=== PATIENT | female | born 1960 | race Hispanic/Latino ===

== ENCOUNTER 2018-01-17 14:20 | Emergency (ER) | payer OTHER ==
[~2018-01-17 14:20] MED LIST: DAPA10TA PO; ESOM40CA PO; LISI-617 PO; METF10004 PO
[2018-01-17] MEDS ORDERED: SODIUM CHLORIDE 0.9% 1000ML 1,000 ML IV ONE (14:51)
[2018-01-17] MEDS ORDERED: ONDANSETRON HCL 4 MG/2 ML VIAL ONE (14:51)
[2018-01-17 14:53] LABS: BASOPHILS % (AUTO) 0.3 % (0.0-5.0); EOSINOPHILS % (AUTO) 0.7 % (0.0-8.0); HEMATOCRIT 35.8 % (36-48); LYMPHOCYTES % (AUTO) 7.3 % (21.0-51.0); MEAN CORPUSCULAR HEMOGLOBIN 28.3 pg (27.0-33.0); MEAN CORPUSCULAR HGB CONC 34.5 g/dL (32.0-36.0); MEAN CORPUSCULAR VOLUME 82.1 fL (79-99); MONOCYTES % (AUTO) 3.3 % (3.0-13.0); NEUTROPHILS % (AUTO) 88.4 % (40.0-77.0); PLATELET COUNT (AUTO) 143 K/uL (130-400); RED BLOOD CELL COUNT(AUTO) 4.37 MIL/uL (4.00-5.50); RED CELL DISTRIBUTION WIDTH 14.2 % (11.0-15.5)
[2018-01-17 15:02] LABS: CREATININE 0.8 mg/dL (0.5-1.5); POTASSIUM 3.9 mmol/L (3.5-5.1)
[2018-01-17 15:06] LABS: ALBUMIN 3.5 g/dL (3.5-5.0); BILIRUBIN,DIRECT 0.4 mg/dL (0.0-0.3); BILIRUBIN,TOTAL 1.4 mg/dL (0.2-1.0); TOTAL PROTEIN, SERUM 7.9 g/dL (6.0-8.3)
[2018-01-17] MEDS ORDERED: ACETAMINOPHEN 325 MG TAB ONE (15:42)
[2018-01-17 17:45] LABS: APPEARANCE,URINE Cloudy (CLEAR); BILIRUBIN,URINE Negative (NEGATIVE); COLOR,URINE Dark Yellow (YELLOW); GLUCOSE, URINE (UA) Negative (NEGATIVE); KETONES,URINE Negative (NEGATIVE); LEUKOCYTE ESTERASE ,URINE Small (NEGATIVE); NITRATE,URINE Positive (NEGATIVE); OCCULT BLOOD,URINE Negative (NEGATIVE); PH,URINE 6.5 (5.0-8.0); PROTEIN,URINE POS 1+ (NEGATIVE)
[2018-01-17 17:51] LABS: AMPHET/METH SCREEN,URINE NEGATIVE (NEGATIVE); BARBITURATE SCREEN, URINE NEGATIVE (NEGATIVE); BENZODIAZEPINES SCREEN,URINE NEGATIVE (NEGATIVE); CANNABINOID SCREEN,URINE NEGATIVE (NEGATIVE); COCAINE SCREEN,URINE NEGATIVE (NEGATIVE); OPIATE SCREEN,URINE NEGATIVE (NEGATIVE); PHENCYCLIDINE SCREEN,URINE NEGATIVE (NEGATIVE)
[2018-01-17 17:53] LABS: BACTERIA,URINE Many /HPF (None Seen); RBC,URINE None Seen /HPF (0-1); WBC,URINE 0-1 /HPF (0-1)
== END 2018-01-17 18:34 | disposition home or self-care (01) ==
LOC: EDH 14:20
DX: K52.9 Noninfective gastroenteritis and colitis, unspecified (principal); R53.1 Weakness; E11.9 Type 2 diabetes mellitus without complications
CPT/HCPCS: 36415; 74176; 80048; 80076; 80305; 81001; 83690; 85025; 87804 ×2; 96374; 99285; J2405; J7030

== ENCOUNTER 2018-02-09 21:18 | Emergency (ER) | payer OTHER ==
[2018-02-09] MEDS ORDERED: ACETAMINOPHEN EXTRA STRENGTH 500 MG TABLET ONE (21:59)
[2018-02-09 22:14] LABS: BASOPHILS % (AUTO) 0.6 % (0.0-5.0); EOSINOPHILS % (AUTO) 1.5 % (0.0-8.0); HEMATOCRIT 32.8 % (36-48); LYMPHOCYTES % (AUTO) 26.3 % (21.0-51.0); MEAN CORPUSCULAR HGB CONC 33.7 g/dL (32.0-36.0); MEAN CORPUSCULAR VOLUME 82.9 fL (79-99); NEUTROPHILS % (AUTO) 65.6 % (40.0-77.0); NUCLEATED RED BLOOD CELLS 0.1 % (0.0-0.19); PLATELET COUNT (AUTO) 124 K/uL (130-400); RED BLOOD CELL COUNT(AUTO) 3.95 MIL/uL (4.00-5.50); RED CELL DISTRIBUTION WIDTH 14.1 % (11.0-15.5); WHITE BLOOD COUNT (AUTO) 4.2 K/uL (4.8-10.8)
[2018-02-09 22:20] LABS: APPEARANCE,URINE Clear (CLEAR); BILIRUBIN,URINE Negative (NEGATIVE); COLOR,URINE Yellow (YELLOW); GLUCOSE, URINE (UA) 500 mg/dL (NEGATIVE); KETONES,URINE Negative (NEGATIVE); LEUKOCYTE ESTERASE ,URINE Negative (NEGATIVE); NITRATE,URINE Negative (NEGATIVE); OCCULT BLOOD,URINE Negative (NEGATIVE); PROTEIN,URINE Negative (NEGATIVE)
[2018-02-09 22:23] LABS: CREATININE 0.8 mg/dL (0.5-1.5)
[2018-02-09 22:28] LABS: ALBUMIN 3.2 g/dL (3.5-5.0); BILIRUBIN,TOTAL 0.6 mg/dL (0.2-1.0); TOTAL PROTEIN, SERUM 7.6 g/dL (6.0-8.3)
[2018-02-09 22:42] LABS: BACTERIA,URINE Rare /HPF (None Seen); MUCUS,URINE Moderate LPF (None Seen); RBC,URINE None Seen /HPF (0-1); SQUAMOUS EPITHELIAL CELL,UR Moderate /HPF (0-2); WBC,URINE None Seen /HPF (0-1)
== END 2018-02-09 22:53 | disposition home or self-care (01) ==
LOC: EDH 21:18
DX: J09.X2 Influenza due to identified novel influenza A virus with other respiratory manifestations (principal); I10 Essential (primary) hypertension; E11.9 Type 2 diabetes mellitus without complications
CPT/HCPCS: 36415; 80053; 81001; 85025; 87804

== ENCOUNTER 2018-05-02 01:42 | Emergency (ER) | payer OTHER ==
[~2018-05-02 01:42] MED LIST changes: +METF-446 PO; -METF10004 PO
[2018-05-02] MEDS ORDERED: ASPIRIN 325 MG TABLET ONE (01:58)
[2018-05-02 02:11] LABS: BASOPHILS % (AUTO) 0.5 % (0.0-5.0); EOSINOPHILS % (AUTO) 3.1 % (0.0-8.0); HEMATOCRIT 33.8 % (36-48); LYMPHOCYTES % (AUTO) 34.4 % (21.0-51.0); MEAN CORPUSCULAR HEMOGLOBIN 27.1 pg (27.0-33.0); MEAN CORPUSCULAR HGB CONC 32.5 g/dL (32.0-36.0); MEAN CORPUSCULAR VOLUME 83.5 fL (79-99); MONOCYTES % (AUTO) 4.5 % (3.0-13.0); NEUTROPHILS % (AUTO) 57.5 % (40.0-77.0); PLATELET COUNT (AUTO) 119 K/uL (130-400); RED BLOOD CELL COUNT(AUTO) 4.05 MIL/uL (4.00-5.50); RED CELL DISTRIBUTION WIDTH 14.1 % (11.0-15.5); WHITE BLOOD COUNT (AUTO) 5.8 K/uL (4.8-10.8)
[2018-05-02 02:21] LABS: CREATININE 0.8 mg/dL (0.5-1.5); POTASSIUM 3.8 mmol/L (3.5-5.1)
[2018-05-02 02:24] LABS: INR 1.09 (0.85-1.15); PARTIAL THROMBOPLASTIN TIME 27.1 SEC (26.3-35.5); PROTHROMBIN TIME 11.4 SEC (9.6-11.6)
[2018-05-02 02:37] LABS: ALBUMIN 3.2 g/dL (3.5-5.0); BILIRUBIN,TOTAL 0.7 mg/dL (0.2-1.0); CREATINE KINASE MB 0.5 ng/mL (0.5-3.6); TOTAL PROTEIN, SERUM 7.6 g/dL (6.0-8.3)
[2018-05-02] MEDS ORDERED: MAG HYDROX/AL HYDROX/SIMETH ES 30 ML SUSP UDCUP ONE (04:30)
[2018-05-02] MEDS ORDERED: LIDOCAINE HCL 2% VISCOUS 15 ML UDCUP ONE (04:30)
[2018-05-02] MEDS ORDERED: ACETAMINOPHEN EXTRA STRENGTH 500 MG TABLET ONE (04:31)
== END 2018-05-02 06:33 | disposition home or self-care (01) ==
LOC: EDH 01:42
DX: R07.2 Precordial pain (principal); E11.9 Type 2 diabetes mellitus without complications; I10 Essential (primary) hypertension; K21.9 Gastro-esophageal reflux disease without esophagitis
CPT/HCPCS: 36415; 71045; 80053; 82550; 82553; 83874; 84484; 85025; 85610; 85730; 93005; 94761; 96374

== ENCOUNTER 2018-11-30 20:22 | Emergency (ER) | payer OTHER ==
[~2018-11-30 20:22] MED LIST changes: +ASPI-555 PO; +ATOR10 PO; +CLON0.2T PO; -DAPA10TA PO; +DOXY100T2 PO; -ESOM40CA PO; +GLIP10TA9 PO; +LEVO500T89 PO; +LOSA100T58 PO; +METO25TA6 PO
[2018-11-30 20:54] LABS: APPEARANCE,URINE Clear (CLEAR); BILIRUBIN,URINE Negative (NEGATIVE); COLOR,URINE Dark Yellow (YELLOW); GLUCOSE, URINE (UA) Negative (NEGATIVE); KETONES,URINE Negative (NEGATIVE); LEUKOCYTE ESTERASE ,URINE Trace (NEGATIVE); NITRATE,URINE Negative (NEGATIVE); OCCULT BLOOD,URINE Negative (NEGATIVE); PROTEIN,URINE Trace mg/dL (NEGATIVE); UROBILINOGEN,URINE >=8.0 mg/dL (0.2-1.0)
[2018-11-30 21:00] LABS: BASOPHILS % (AUTO) 0.6 % (0.0-5.0); EOSINOPHILS % (AUTO) 2.3 % (0.0-8.0); HEMATOCRIT 31.2 % (36-48); LYMPHOCYTES % (AUTO) 20.9 % (21.0-51.0); MEAN CORPUSCULAR HEMOGLOBIN 26.6 pg (27.0-33.0); MEAN CORPUSCULAR HGB CONC 33.6 g/dL (32.0-36.0); MEAN CORPUSCULAR VOLUME 79.1 fL (79-99); MONOCYTES % (AUTO) 4.8 % (3.0-13.0); NEUTROPHILS % (AUTO) 71.4 % (40.0-77.0); PLATELET COUNT (AUTO) 139 K/uL (130-400); RED BLOOD CELL COUNT(AUTO) 3.94 MIL/uL (4.00-5.50); RED CELL DISTRIBUTION WIDTH 14.1 % (11.0-15.5)
[2018-11-30 21:03] LABS: RBC,URINE 0-1 /HPF (0-1)
[2018-11-30 21:04] LABS: BACTERIA,URINE Few /HPF (None Seen); SQUAMOUS EPITHELIAL CELL,UR Few /HPF (0-2)
[2018-11-30 21:17] LABS: CREATININE 0.7 mg/dL (0.5-1.5); POTASSIUM 3.7 mmol/L (3.5-5.1)
[2018-11-30] MEDS ORDERED: KETOROLAC TROMETHAMINE 30MG/ML ONE (21:35)
== END 2018-11-30 22:08 | disposition home or self-care (01) ==
LOC: EDH 20:22
DX: M51.36 Other intervertebral disc degeneration, lumbar region (principal); I10 Essential (primary) hypertension; E11.9 Type 2 diabetes mellitus without complications; K21.9 Gastro-esophageal reflux disease without esophagitis; Z90.710 Acquired absence of both cervix and uterus; Z90.49 Acquired absence of other specified parts of digestive tract; Z98.890 Other specified postprocedural states
CPT/HCPCS: 36415; 72131; 80048; 81001; 85025; 96374; 99285; J1885

== ENCOUNTER 2019-09-22 18:03 | Emergency (ER) | payer OTHER ==
[~2019-09-22 18:03] MED LIST changes: -CLON0.2T PO; -DOXY100T2 PO; +FAMO20TA8 PO; -GLIP10TA9 PO; +GLIP5TAB11 PO; +INSU3INS3 SQ; -LEVO500T89 PO; -LISI-617 PO; -LOSA100T58 PO; +LOSA50TA2 PO; +METF-444 PO; +METO25 PO; +SYRI-1554 MC
[2019-09-22] MEDS ORDERED: FUROSEMIDE 10 MG/ML 4ML VIAL ONE (18:33)
[2019-09-22 18:40] LABS: BASOPHILS % (AUTO) 0.5 % (0.0-5.0); EOSINOPHILS % (AUTO) 4.3 % (0.0-8.0); HEMATOCRIT 28.5 % (36-48); LYMPHOCYTES % (AUTO) 36.5 % (21.0-51.0); MEAN CORPUSCULAR HEMOGLOBIN 22.8 pg (27.0-33.0); MEAN CORPUSCULAR HGB CONC 30.5 g/dL (32.0-36.0); MEAN CORPUSCULAR VOLUME 74.8 fL (79-99); MONOCYTES % (AUTO) 5.6 % (3.0-13.0); NEUTROPHILS % (AUTO) 52.8 % (40.0-77.0); PLATELET COUNT (AUTO) 118 K/uL (130-400); RED BLOOD CELL COUNT(AUTO) 3.81 MIL/uL (4.00-5.50); RED CELL DISTRIBUTION WIDTH 15.9 % (11.0-15.5); WHITE BLOOD COUNT (AUTO) 3.9 K/uL (4.8-10.8)
[2019-09-22 18:49] LABS: CREATININE 0.7 mg/dL (0.5-1.5); POTASSIUM 4.2 mmol/L (3.5-5.1)
[2019-09-22 18:55] LABS: ALBUMIN 3.1 g/dL (3.5-5.0); BILIRUBIN,TOTAL 0.5 mg/dL (0.2-1.0); TOTAL PROTEIN, SERUM 7.5 g/dL (6.0-8.3)
[2019-09-22 18:59] LABS: APPEARANCE,URINE Clear (CLEAR); BILIRUBIN,URINE Negative (NEGATIVE); COLOR,URINE Yellow (YELLOW); GLUCOSE, URINE (UA) >=1000 mg/dL (NEGATIVE); KETONES,URINE Negative (NEGATIVE); LEUKOCYTE ESTERASE ,URINE Negative (NEGATIVE); NITRATE,URINE Negative (NEGATIVE); OCCULT BLOOD,URINE Negative (NEGATIVE); PROTEIN,URINE Trace mg/dL (NEGATIVE)
[2019-09-22 19:17] LABS: YEAST,URINE BUDDING Many /HPF (None Seen)
[2019-09-22 19:18] LABS: BACTERIA,URINE None Seen /HPF (None Seen); RBC,URINE None Seen /HPF (0-1); SQUAMOUS EPITHELIAL CELL,UR 0-2 /HPF (0-2); WBC,URINE 0-1 /HPF (0-1)
[2019-09-22 19:19] LABS: B-TYPE NATRIURETIC PEPTIDE 51 pg/mL (0-100)
== END 2019-09-22 21:02 | disposition home or self-care (01) ==
LOC: EDH 18:03
DX: N77.1 Vaginitis, vulvitis and vulvovaginitis in diseases classified elsewhere (principal); R60.0 Localized edema; E11.9 Type 2 diabetes mellitus without complications; I10 Essential (primary) hypertension; K21.9 Gastro-esophageal reflux disease without esophagitis; Z90.49 Acquired absence of other specified parts of digestive tract; Z90.710 Acquired absence of both cervix and uterus
CPT/HCPCS: 36415; 80053; 81001; 83880; 84484 ×2; 85025; 93005; 96374; 99285; J1940

== ENCOUNTER 2020-02-21 09:28 | Emergency (ER) | payer OTHER ==
[~2020-02-21 09:28] MED LIST changes: -ASPI-555 PO; +ASPI-556 PO
[2020-02-21 10:14] LABS: APPEARANCE,URINE Clear (CLEAR); BILIRUBIN,URINE Negative (NEGATIVE); COLOR,URINE Yellow (YELLOW); GLUCOSE, URINE (UA) Negative (NEGATIVE); KETONES,URINE Negative (NEGATIVE); LEUKOCYTE ESTERASE ,URINE Trace (NEGATIVE); NITRATE,URINE Negative (NEGATIVE); OCCULT BLOOD,URINE Negative (NEGATIVE); PROTEIN,URINE POS 1+ mg/dL (NEGATIVE)
[2020-02-21 10:21] LABS: RBC,URINE 0-1 /HPF (0-1)
[2020-02-21 10:22] LABS: BACTERIA,URINE Rare /HPF (None Seen)
[2020-02-21 10:23] LABS: EOSINOPHILS % (AUTO) 2.6 % (0.0-8.0); HEMATOCRIT 29.2 % (36-48); MEAN CORPUSCULAR HEMOGLOBIN 24.6 pg (27.0-33.0); MEAN CORPUSCULAR HGB CONC 31.5 g/dL (32.0-36.0); MEAN CORPUSCULAR VOLUME 78.1 fL (79-99); PLATELET COUNT (AUTO) 133 K/uL (130-400); RED BLOOD CELL COUNT(AUTO) 3.74 MIL/uL (4.00-5.50); RED CELL DISTRIBUTION WIDTH 14.8 % (11.0-15.5); WHITE BLOOD COUNT (AUTO) 2.7 K/uL (4.8-10.8)
[2020-02-21 10:27] LABS: CREATININE 0.7 mg/dL (0.5-1.5); POTASSIUM 3.8 mmol/L (3.5-5.1)
[2020-02-21 10:32] LABS: ALBUMIN 3.3 g/dL (3.5-5.0); BILIRUBIN,TOTAL 0.8 mg/dL (0.2-1.0); TOTAL PROTEIN, SERUM 7.5 g/dL (6.0-8.3)
[2020-02-21] MEDS ORDERED: IBUPROFEN 600 MG TABLET ONE (11:05)
[2020-02-21 11:18] LABS: EOSINOPHILS % (MANUAL) 2 % (1-6); LYMPHOCYTES % (MANUAL) 27 % (22-44); MAN.DIFF COMMENT-IMPRESSION MANUAL DIFFERENTIAL; MONOCYTES % (MANUAL) 4 % (2-9); PLATELET MORPHOLOGY COMMENT ADEQUATE; SEGMENTED NEUTROPHILS % 67 % (40-70)
== END 2020-02-21 11:52 | disposition home or self-care (01) ==
LOC: EDH 09:28
DX: U07.1 COVID-19 (principal); N39.0 Urinary tract infection, site not specified; E11.9 Type 2 diabetes mellitus without complications; I10 Essential (primary) hypertension; K21.9 Gastro-esophageal reflux disease without esophagitis; Z90.710 Acquired absence of both cervix and uterus; Z87.891 Personal history of nicotine dependence
CPT/HCPCS: 36415; 71045; 74176; 80053; 81001; 85025; 99285; U0003

== ENCOUNTER 2020-03-18 06:30 | Emergency (ER) | payer OTHER ==
[2020-03-18 07:02] LABS: APPEARANCE,URINE CLEAR (CLEAR); BASOPHILS % (AUTO) 0.5 % (0.0-5.0); BILIRUBIN,URINE NEGATIVE (NEGATIVE); COLOR,URINE YELLOW (YELLOW); EOSINOPHILS % (AUTO) 4.7 % (0.0-8.0); GLUCOSE, URINE (UA) NEGATIVE (NEGATIVE); HEMATOCRIT 31.5 % (36-48); KETONES,URINE NEGATIVE (NEGATIVE); LEUKOCYTE ESTERASE ,URINE TRACE (NEGATIVE); LYMPHOCYTES % (AUTO) 29.9 % (21.0-51.0); MEAN CORPUSCULAR HEMOGLOBIN 24.8 pg (27.0-33.0); MEAN CORPUSCULAR HGB CONC 31.4 g/dL (32.0-36.0); MEAN CORPUSCULAR VOLUME 78.8 fL (79-99); MONOCYTES % (AUTO) 4.7 % (3.0-13.0); NEUTROPHILS % (AUTO) 59.9 % (40.0-77.0); NITRATE,URINE NEGATIVE (NEGATIVE); OCCULT BLOOD,URINE NEGATIVE (NEGATIVE); PH,URINE 5.5 (5.0-8.0); PLATELET COUNT (AUTO) 166 K/uL (130-400); PROTEIN,URINE NEGATIVE (NEGATIVE); RED CELL DISTRIBUTION WIDTH 15.6 % (11.0-15.5); WHITE BLOOD COUNT (AUTO) 6.6 K/uL (4.8-10.8)
[2020-03-18 07:27] LABS: INR 1.08 (0.85-1.15); PARTIAL THROMBOPLASTIN TIME 27.3 SEC (26.3-35.5); PROTHROMBIN TIME 11.6 SEC (9.6-11.6)
[2020-03-18 08:00] LABS: CREATININE 0.7 mg/dL (0.5-1.5); POTASSIUM 3.9 mmol/L (3.5-5.1)
[2020-03-18 08:04] LABS: ALBUMIN 3.7 g/dL (3.5-5.0); BILIRUBIN,TOTAL 0.8 mg/dL (0.2-1.0); TOTAL PROTEIN, SERUM 7.9 g/dL (6.0-8.3)
[2020-03-18 08:05] LABS: BACTERIA,URINE Rare /HPF (None Seen); RBC,URINE 0-1 /HPF (0-1); SQUAMOUS EPITHELIAL CELL,UR Rare /HPF (0-2); WBC,URINE 0-1 /HPF (0-1)
== END 2020-03-18 10:39 | disposition home or self-care (01) ==
LOC: EDH 06:30
DX: K74.60 Unspecified cirrhosis of liver (principal); K86.1 Other chronic pancreatitis; I10 Essential (primary) hypertension; E11.9 Type 2 diabetes mellitus without complications; K21.9 Gastro-esophageal reflux disease without esophagitis; Z90.49 Acquired absence of other specified parts of digestive tract; Z87.891 Personal history of nicotine dependence; Z90.710 Acquired absence of both cervix and uterus
CPT/HCPCS: 36415; 80053; 81001; 83690; 83880; 84484; 85025; 85610; 85730; 93005

== ENCOUNTER 2022-10-22 21:37 | Emergency (ER) | payer BC, OTHER ==
[~2022-10-22] VITALS: Ht 152.4 cm; Wt 81.6 kg
[2022-10-22 22:47] LABS: BASOPHILS % (AUTO) 0.7 % (0.0-5.0); EOSINOPHILS % (AUTO) 4.6 % (0.0-8.0); HEMATOCRIT 32.7 % (36-48); LYMPHOCYTES % (AUTO) 33.4 % (21.0-51.0); MEAN CORPUSCULAR HEMOGLOBIN 27.8 pg (27.0-33.0); MEAN CORPUSCULAR HGB CONC 32.7 g/dL (32.0-36.0); MEAN CORPUSCULAR VOLUME 84.9 fL (79-99); MONOCYTES % (AUTO) 6.3 % (3.0-13.0); NEUTROPHILS % (AUTO) 54.8 % (40.0-77.0); PLATELET COUNT (AUTO) 105 K/uL (130-400); RED BLOOD CELL COUNT(AUTO) 3.85 MIL/uL (4.00-5.50); RED CELL DISTRIBUTION WIDTH 14.9 % (11.0-15.5); WHITE BLOOD COUNT (AUTO) 4.1 K/uL (4.8-10.8)
[2022-10-22 23:00] LABS: CREATININE 0.7 mg/dL (0.5-1.5)
[2022-10-22 23:01] LABS: ALBUMIN 3.1 g/dL (3.5-5.0); TOTAL PROTEIN, SERUM 7.1 g/dL (6.0-8.3)
[2022-10-22 23:07] LABS: POTASSIUM 3.9 mmol/L (3.5-5.1)
[2022-10-22 23:16] LABS: APPEARANCE,URINE CLOUDY (CLEAR); BILIRUBIN,URINE NEGATIVE (NEGATIVE); COLOR,URINE YELLOW (YELLOW); GLUCOSE, URINE (UA) NEGATIVE (NEGATIVE); KETONES,URINE 5 mg/dL (NEGATIVE); LEUKOCYTE ESTERASE ,URINE NEGATIVE Leu/uL (NEGATIVE); NITRATE,URINE NEGATIVE (NEGATIVE); OCCULT BLOOD,URINE NEGATIVE (NEGATIVE); PROTEIN,URINE 300 mg/dL (NEGATIVE); UROBILINOGEN,URINE 6 mg/dL (0.2-1.0)
[2022-10-22 23:27] LABS: BACTERIA,URINE MANY /HPF (None Seen); MUCUS,URINE RARE LPF (None Seen); SQUAMOUS EPITHELIAL CELL,UR RARE /HPF (0-2)
[2022-10-22 23:37] VITALS: BP 146/73
[2022-10-23] MEDS ORDERED: CEPH500T PO (00:31)
== END 2022-10-23 00:33 | disposition home or self-care (01) ==
LOC: EDH 21:37
DX: N39.0 Urinary tract infection, site not specified (principal); K74.60 Unspecified cirrhosis of liver; R10.84 Generalized abdominal pain; E11.9 Type 2 diabetes mellitus without complications; Z79.899 Other long term (current) drug therapy; Z87.440 Personal history of urinary (tract) infections; Z90.710 Acquired absence of both cervix and uterus; Z90.49 Acquired absence of other specified parts of digestive tract
CPT/HCPCS: 36415; 74176; 80053; 81001; 83690; 85025; 87077; 87088; 87186

== ENCOUNTER 2022-11-10 00:36 | Observation (INO) | payer BC ==
[~2022-11-10] VITALS: Ht 152.4 cm; Wt 83.0 kg
[~2022-11-10 00:36] MED LIST changes: +CEPH500T PO
[2022-11-10 01:24] LABS: BASOPHILS % (AUTO) 0.3 % (0.0-5.0); HEMATOCRIT 29.4 % (36-48); LYMPHOCYTES % (AUTO) 29.7 % (21.0-51.0); MEAN CORPUSCULAR HEMOGLOBIN 28.5 pg (27.0-33.0); MEAN CORPUSCULAR VOLUME 86.5 fL (79-99); MONOCYTES % (AUTO) 7.9 % (3.0-13.0); NEUTROPHILS % (AUTO) 57.8 % (40.0-77.0); PLATELET COUNT (AUTO) 85 K/uL (130-400); RED CELL DISTRIBUTION WIDTH 14.3 % (11.0-15.5); WHITE BLOOD COUNT (AUTO) 3.5 K/uL (4.8-10.8)
[2022-11-10 01:26] LABS: APPEARANCE,URINE CLEAR (CLEAR); BILIRUBIN,URINE NEGATIVE (NEGATIVE); COLOR,URINE COLORLESS (YELLOW); GLUCOSE, URINE (UA) 70 mg/dL (NEGATIVE); KETONES,URINE NEGATIVE (NEGATIVE); LEUKOCYTE ESTERASE ,URINE NEGATIVE Leu/uL (NEGATIVE); NITRATE,URINE NEGATIVE (NEGATIVE); OCCULT BLOOD,URINE NEGATIVE (NEGATIVE); PROTEIN,URINE 50 mg/dL (NEGATIVE); UROBILINOGEN,URINE 0.2 mg/dL (0.2-1.0)
[2022-11-10 01:29] LABS: RBC,URINE 0-1 /HPF (0-1); SQUAMOUS EPITHELIAL CELL,UR RARE /HPF (0-2); WBC,URINE 0-1 /HPF (0-1)
[2022-11-10 01:33] LABS: CREATININE 0.8 mg/dL (0.5-1.5); POTASSIUM 3.6 mmol/L (3.5-5.1)
[2022-11-10 01:40] LABS: ALBUMIN 2.8 g/dL (3.5-5.0); TOTAL PROTEIN, SERUM 6.6 g/dL (6.0-8.3)
[2022-11-10] MEDS ORDERED: LACTATED RINGERS 1000ML 1,000 ML IV SCH (03:00)
[2022-11-10] MEDS ORDERED: POTASSIUM CHLORIDE 10% ELIXIR 20 MEQ/15 ML UDCUP PO PRN (03:00)
[2022-11-10] MEDS ORDERED: POTASSIUM CHLORIDE 20MEQ/100ML 100 ML IV PRN (03:00)
[2022-11-10] MEDS ORDERED: ONDANSETRON 4MG INJ IV PRN (03:00)
[2022-11-10] MEDS ORDERED: MAGNESIUM 2GM PREMIX 50ML 50 ML IV PRN (03:00)
[2022-11-10] MEDS ORDERED: MORPHINE 2 MG SYG IV PRN (03:00)
[2022-11-10] MEDS ORDERED: LIDOCAINE HCL-MPF 1% 2ML VIAL IV PRN (03:00)
[2022-11-10] MEDS ORDERED: MORPHINE 4 MG SYG IV PRN (03:00)
[2022-11-10] MEDS ORDERED: ACETAMINOPHEN 325 MG TAB PO PRN ×2 (03:00)
[2022-11-10] MEDS ORDERED: KCL 20 MEQ ERTAB PO PRN (03:00)
[2022-11-10 03:19] LABS: MAGNESIUM 1.6 mg/dL (1.80-2.40); PHOSPHORUS 3.4 mg/dL (2.5-4.9)
[2022-11-10 03:30] LABS: % IRON SATURATION 12.2 % (22-44)
[2022-11-10] MEDS ORDERED: LOSARTAN 50 MG TABLET PO SCH ×2 (04:00→09:00)
[2022-11-10] MEDS ORDERED: METOPROLOL TARTRATE 25 MG TAB PO ONE (04:00)
[2022-11-10] MEDS ORDERED: ASPIRIN 81MG CHEW TAB PO ONE (04:00)
[2022-11-10 04:14] LABS: HEMOGLOBIN A1C 6.6 % (4.0-6.0)
[2022-11-10] MEDS: NITROGLYCERIN 1GM OINT 1 INCH/1GM TD SCH ×2 (04:16→10:48)
[2022-11-10 08:00] VITALS: BP 132/55
[2022-11-10] MEDS: INSULIN HUMULIN R 100 UNIT/ML 3ML SQ SCH ×2 (08:10→12:39)
[2022-11-10] MEDS ORDERED: LISI1TAB51 PO ×2 (08:46→10:42)
[2022-11-10] MEDS ORDERED: DULA3PEN SQ (08:48)
[2022-11-10] MEDS ORDERED: FAMOTIDINE 20MG VIAL IV SCH (09:00)
[2022-11-10] MEDS ORDERED: ASPIRIN 81MG CHEW TAB PO SCH (09:00)
[2022-11-10] MEDS ORDERED: METOPROLOL TARTRATE 25 MG TAB PO SCH ×3 (09:00→21:00)
[2022-11-10] MEDS ORDERED: HYDROCHLOROTHIAZIDE 25 MG TABLET PO SCH (10:00)
[2022-11-10] MEDS ORDERED: AMLODIPINE 5 MG TAB PO SCH ×2 (10:00→21:00)
[2022-11-10] MEDS ORDERED: IRON SUCROSE COMPLEX 500 MG in 0.9% NACL 250ML 250 ML IV SCH (10:00)
[2022-11-10] MEDS ORDERED: EPOETIN ALFA-EPBX (NON-ESRD) 10,000 UNIT/ML VIAL SQ SCH (10:00)
[2022-11-10] MEDS ORDERED: ASPI-1005 PO (10:42)
[2022-11-10] MEDS ORDERED: NITR0.4T50 SL (10:42)
[2022-11-10] MEDS ORDERED: METO50TA18 PO (10:42)
[2022-11-10] MEDS ORDERED: AMLO5TAB4 PO (10:42)
[2022-11-10 12:00] VITALS: BP 132/63
[2022-11-10] MEDS ORDERED: LISINOPRIL 20 MG TABLET PO SCH (21:00)
[2022-11-11] MEDS ORDERED: HYDROCHLOROTHIAZIDE 25 MG TABLET PO SCH (09:00)
== END 2022-11-10 16:50 | disposition home or self-care (01) ==
LOC: EDH 00:36 → INTOOBSV 02:46 → EDHIP 02:46 → 4AH 04:52
PROVIDERS: ADMIT Internal Medicine; ATTEND Internal Medicine
DX: I16.0 Hypertensive urgency (principal); R07.89 Other chest pain; E11.65 Type 2 diabetes mellitus with hyperglycemia; D61.818 Other pancytopenia; D64.9 Anemia, unspecified; D70.9 Neutropenia, unspecified; D69.6 Thrombocytopenia, unspecified; E78.5 Hyperlipidemia, unspecified; I10 Essential (primary) hypertension; K76.0 Fatty (change of) liver, not elsewhere classified; M35.3 Polymyalgia rheumatica; Z51.5 Encounter for palliative care; Z79.4 Long term (current) use of insulin; Z90.710 Acquired absence of both cervix and uterus; Z79.82 Long term (current) use of aspirin; Z79.899 Other long term (current) drug therapy; Z87.891 Personal history of nicotine dependence; Z90.5 Acquired absence of kidney
CPT/HCPCS: 96372; 96365; 96375; 96367; 99285; 83036; 83540; 83550; 83735; 84100; 84484 ×3; 80053; 85025; 85378; 86850; 86900; 86901; 82948 ×2; 81001; 36415; 71045; 93005; G0378 ×6; J3475; J3490; J1756; J7050; J1815 ×2; Q5106

== ENCOUNTER 2023-02-09 13:30 | Emergency (ER) | payer BC ==
[~2023-02-09] VITALS: Ht 154.9 cm; Wt 80.3 kg
[~2023-02-09 13:30] MED LIST changes: +AMLO5TAB4 PO; +ASPI-1005 PO; -ASPI-556 PO; -ATOR10 PO; -CEPH500T PO; +DULA3PEN SQ; -FAMO20TA8 PO; -GLIP5TAB11 PO; -INSU3INS3 SQ; +LISI1TAB51 PO; -LOSA50TA2 PO; -METF-446 PO; -METO25 PO; -METO25TA6 PO; +METO50TA18 PO; +NITR0.4T50 SL; -SYRI-1554 MC
[2023-02-09 13:57] LABS: BASOPHILS % (AUTO) 0.6 % (0.0-5.0); EOSINOPHILS % (AUTO) 4.9 % (0.0-8.0); HEMATOCRIT 32.6 % (36-48); LYMPHOCYTES % (AUTO) 29.7 % (21.0-51.0); MEAN CORPUSCULAR HEMOGLOBIN 30.9 pg (27.0-33.0); MEAN CORPUSCULAR HGB CONC 34.7 g/dL (32.0-36.0); MEAN CORPUSCULAR VOLUME 89.1 fL (79-99); MONOCYTES % (AUTO) 6.1 % (3.0-13.0); NEUTROPHILS % (AUTO) 58.4 % (40.0-77.0); PLATELET COUNT (AUTO) 106 K/uL (130-400); RED BLOOD CELL COUNT(AUTO) 3.66 MIL/uL (4.00-5.50); RED CELL DISTRIBUTION WIDTH 14.9 % (11.0-15.5); WHITE BLOOD COUNT (AUTO) 6.5 K/uL (4.8-10.8)
[2023-02-09 14:12] LABS: CREATININE 0.8 mg/dL (0.5-1.5); POTASSIUM 3.9 mmol/L (3.5-5.1)
[2023-02-09 14:16] LABS: ALBUMIN 3.4 g/dL (3.5-5.0); TOTAL PROTEIN, SERUM 7.4 g/dL (6.0-8.3)
[2023-02-09 17:27] VITALS: BP 133/67
== END 2023-02-09 17:28 | disposition home or self-care (01) ==
LOC: EDH 13:30
DX: M79.18 Myalgia, other site (principal); E11.9 Type 2 diabetes mellitus without complications; I10 Essential (primary) hypertension; Z79.82 Long term (current) use of aspirin; Z90.49 Acquired absence of other specified parts of digestive tract
CPT/HCPCS: 36415; 74176; 80053; 83690; 84484; 85025

== ENCOUNTER 2023-03-29 08:33 | Emergency (ER) | payer BC, OTHER ==
[~2023-03-29] VITALS: Ht 152.4 cm; Wt 79.4 kg
[2023-03-29 09:17] LABS: APPEARANCE,URINE CLOUDY (CLEAR); BILIRUBIN,URINE NEGATIVE (NEGATIVE); COLOR,URINE YELLOW (YELLOW); GLUCOSE, URINE (UA) 50 mg/dL (NEGATIVE); KETONES,URINE NEGATIVE (NEGATIVE); LEUKOCYTE ESTERASE ,URINE 250 Leu/uL (NEGATIVE); NITRATE,URINE NEGATIVE (NEGATIVE); PROTEIN,URINE 300 mg/dL (NEGATIVE); UROBILINOGEN,URINE 3 mg/dL (0.2-1.0)
[2023-03-29 09:19] LABS: ADD UA MICROSCOPIC YES
[2023-03-29 09:22] LABS: BACTERIA,URINE RARE /HPF (None Seen); MUCUS,URINE RARE LPF (None Seen); SQUAMOUS EPITHELIAL CELL,UR MOD /HPF (0-2); WBC,URINE 26-50 /HPF (0-1)
[2023-03-29 09:27] LABS: BASOPHILS # (AUTO) 0.02 K/uL (0.00-0.20); BASOPHILS % (AUTO) 0.3 % (0.0-5.0); EOSINOPHILS # (AUTO) 0.22 K/uL (0.00-0.70); EOSINOPHILS % (AUTO) 3.5 % (0.0-8.0); HEMATOCRIT 33.1 % (36-48); IMMATURE GRANULOCYTE ABSOLUTE 0.02 K/uL (0-1); LYMPHOCYTES # (AUTO) 0.8 K/uL (1.0-4.8); MEAN CORPUSCULAR HEMOGLOBIN 31.2 pg (27.0-33.0); MEAN CORPUSCULAR HGB CONC 33.8 g/dL (32.0-36.0); MEAN CORPUSCULAR VOLUME 92.2 fL (79-99); MONOCYTES # (AUTO) 0.3 K/uL (0.1-1.0); MONOCYTES % (AUTO) 4.3 % (3.0-13.0); NEUTROPHILS % (AUTO) 79.6 % (40.0-77.0); PLATELET COUNT (AUTO) 95 K/uL (130-400); RED BLOOD CELL COUNT(AUTO) 3.59 MIL/uL (4.00-5.50); RED CELL DISTRIBUTION WIDTH 13.7 % (11.0-15.5); WHITE BLOOD COUNT (AUTO) 6.2 K/uL (4.8-10.8)
[2023-03-29 09:49] LABS: CREATININE 0.8 mg/dL (0.5-1.5); POTASSIUM 3.9 mmol/L (3.5-5.1)
[2023-03-29 09:53] LABS: ALBUMIN 3.3 g/dL (3.5-5.0); BILIRUBIN,TOTAL 1.5 mg/dL (0.2-1.0); TOTAL PROTEIN, SERUM 7.2 g/dL (6.0-8.3)
[2023-03-29] MEDS ORDERED: ACETAMINOPHEN 325 MG TAB PO ONE (10:00)
[2023-03-29] MEDS ORDERED: ONDANSETRON 4MG INJ IVP ONE (10:00)
[2023-03-29] MEDS ORDERED: 0.9%NACL 1000ML 1,365 ML IV ONE (10:00)
[2023-03-29] MEDS ORDERED: DIPH1TAB PO (12:09)
[2023-03-29] MEDS ORDERED: ONDA4TAB10 PO (12:09)
[2023-03-29 12:22] VITALS: BP 148/59; PULSE 86; RESP 20; O2SAT 98
== END 2023-03-29 12:33 | disposition home or self-care (01) ==
LOC: EDH 08:33
DX: R19.7 Diarrhea, unspecified (principal); E11.9 Type 2 diabetes mellitus without complications; I10 Essential (primary) hypertension; Z79.82 Long term (current) use of aspirin
CPT/HCPCS: 99283; 96374; 96361; 80053; 83690; 85025; 87088; 81001; 36415; J7030; J2405

== ENCOUNTER 2023-09-10 16:55 | Emergency (ER) | payer OTHER ==
[~2023-09-10] VITALS: Ht 152.4 cm; Wt 862.7 kg
[~2023-09-10 16:55] MED LIST changes: +DIPH1TAB PO; +ONDA4TAB10 PO
[2023-09-10 17:28] LABS: BASOPHILS # (AUTO) 0.01 K/uL (0.00-0.20); BASOPHILS % (AUTO) 0.3 % (0.0-5.0); EOSINOPHILS % (AUTO) 5.5 % (0.0-8.0); HEMATOCRIT 31.6 % (36-48); IMMATURE GRANULOCYTE ABSOLUTE 0.01 K/uL (0-1); LYMPHOCYTES # (AUTO) 0.9 K/uL (1.0-4.8); LYMPHOCYTES % (AUTO) 25.1 % (21.0-51.0); MEAN CORPUSCULAR HEMOGLOBIN 29.6 pg (27.0-33.0); MEAN CORPUSCULAR HGB CONC 34.8 g/dL (32.0-36.0); MEAN CORPUSCULAR VOLUME 85.2 fL (79-99); MONOCYTES # (AUTO) 0.2 K/uL (0.1-1.0); MONOCYTES % (AUTO) 6.1 % (3.0-13.0); NEUTROPHILS # (AUTO) 2.3 K/uL (1.8-7.7); NEUTROPHILS % (AUTO) 62.7 % (40.0-77.0); PLATELET COUNT (AUTO) 85 K/uL (130-400); RED BLOOD CELL COUNT(AUTO) 3.71 MIL/uL (4.00-5.50); RED CELL DISTRIBUTION WIDTH 14.4 % (11.0-15.5); WHITE BLOOD COUNT (AUTO) 3.6 K/uL (4.8-10.8)
[2023-09-10 17:37] LABS: CREATININE 1.2 mg/dL (0.5-1.5); POTASSIUM 4.2 mmol/L (3.5-5.1)
[2023-09-10 17:41] LABS: ALBUMIN 2.7 g/dL (3.5-5.0); BILIRUBIN,TOTAL 0.9 mg/dL (0.2-1.0); MAGNESIUM 1.8 mg/dL (1.80-2.40)
[2023-09-10] MEDS ORDERED: ASPIRIN 81MG CHEW TAB PO ONE (19:00)
[2023-09-10] MEDS ORDERED: ALBUTEROL 0.083% 2.5 MG/3 ML INH IH ONE (21:30)
[2023-09-10] MEDS ORDERED: IPRATROPIUM/ALBUTEROL SULFATE 3 ML SOLUTION IH ONE ×3 (22:07→23:00)
[2023-09-10 22:45] VITALS: PULSE 87; RESP 18
[2023-09-10] MEDS ORDERED: ALBU90AE2 IH (22:57)
[2023-09-10 23:36] LABS: SARS-CoV-2, RNA, NAAT NEGATIVE SARS CoV-2 (NEGATIVE)
[2023-09-10 23:38] LABS: INFLUENZA TYPE A Negative For Type A (NEGATIVE); INFLUENZA TYPE B Negative For Type B (NEGATIVE)
[2023-09-10 23:59] VITALS: BP 145/72; PULSE 82; RESP 16; O2SAT 96
== END 2023-09-10 23:59 | disposition home or self-care (01) ==
LOC: EDH 16:55
DX: J45.909 Unspecified asthma, uncomplicated (principal); E11.9 Type 2 diabetes mellitus without complications; I10 Essential (primary) hypertension; Z79.82 Long term (current) use of aspirin; Z20.822 Contact with and (suspected) exposure to COVID-19
CPT/HCPCS: 36415; 71045; 80053; 82948; 83735; 83880; 84484; 85025; 87635; 87804; 93005; 94640

== ENCOUNTER 2023-09-20 17:26 | Emergency (ER) | payer OTHER ==
[~2023-09-20] VITALS: Ht 152.4 cm; Wt 86.2 kg
[~2023-09-20 17:26] MED LIST changes: +ALBU90AE2 IH; -DIPH1TAB PO
[2023-09-20] MEDS ORDERED: IBUP-2071 PO (22:31)
[2023-09-20] MEDS: KETOROLAC 30MG VIAL (30MG/ML) IM ONE (22:46)
[2023-09-20 23:00] VITALS: BP 156/74; PULSE 70; RESP 16; O2SAT 96
== END 2023-09-20 23:12 | disposition home or self-care (01) ==
LOC: EDH 17:26
DX: S70.11XA Contusion of right thigh, initial encounter (principal); M25.561 Pain in right knee; M25.551 Pain in right hip; R07.81 Pleurodynia; I10 Essential (primary) hypertension; E11.9 Type 2 diabetes mellitus without complications; Z79.82 Long term (current) use of aspirin; Z79.84 Long term (current) use of oral hypoglycemic drugs; Z79.899 Other long term (current) drug therapy; Z98.890 Other specified postprocedural states; W18.39XA Other fall on same level, initial encounter; Y93.89 Activity, other specified; Y92.89 Other specified places as the place of occurrence of the external cause; Y99.8 Other external cause status
CPT/HCPCS: 99285; 70450; 71045; 73502; 73552; 73562; 71100; 96372; J1885

== ENCOUNTER 2025-04-03 18:42 | Emergency (ER) | payer OTHER ==
[~2025-04-03] VITALS: Ht 152.4 cm; Wt 76.2 kg
[~2025-04-03 18:42] MED LIST changes: -ALBU90AE2 IH; -AMLO5TAB4 PO; -ASPI-1005 PO; -DULA3PEN SQ; +FERR325T29 PO; +INSU100V37 SQ; +LACT10SO85 PO; -LISI1TAB51 PO; -METF-444 PO; -METO50TA18 PO; -NITR0.4T50 SL; -ONDA4TAB10 PO; +PANT40TA PO
--- NOTE | 2025-04-03 18:50 | ERN ---
ED Note History of Present Illness Stated Complaint: BACK PAIN Chief Complaint: Back Pain-No Injury Time Seen by MD: 18:44 Dictation: PATIENT IS A 65-YEAR-OLD FEMALE COMING IN TODAY WITH COMPLAINTS OF RIGHT FLANK PAIN THAT RADIATES TO RIGHT LOWER QUADRANT STARTED LAST WEDNESDAY. NO NAUSEA VOMITING NO DIARRHEA NO CHANGE IN URINATION. SHE DOES STATE SHE HAS A HISTORY OF UROLITHIASIS. SHE SAW HER PRIMARY CARE DOCTOR ON WEDNESDAY WHO ADVISED HER WAS PROBABLE MUSCLE AND WAS GOING TO GIVE HER MUSCLE RELAXERS HOWEVER HE NEVER AMARO D THEM IN. NO FEVER NO CHILLS. Allergies: Coded Allergies: No Known Drug Allergies (Verified Allergy, 06/25/13) Home Meds Active Scripts Pantoprazole Sodium (Protonix) 40 Mg Tablet.dr, 40 MG PO BID for 60 Days, #120 TAB Prov:LAURA FOX 12/10/24 Lactulose (Lactulose) 10 Gram/15 Ml Solution, 30 ML PO BID for ammonia, #500 ML 0 Refills Prov:AMARA BURNS 11/06/24 Reported Medications Insulin Degludec (Tresiba) 100 Unit/Ml Vial, 16 UNIT SQ BID, VIAL 12/08/24 Ferrous Sulfate (Ferosul) 325 Mg (65 Mg Iron) Tablet, 1 TAB PO BID 11/01/24 Past Medical History Past Medical History: Anemia, Diabetes-Type II, Heart Disease, Hypertension, Liver Disease, Renal Disese Additional Past Medical Hx: GASTROPARESIS Surgical History: Hysterectomy, Other Surgical History Other: LT NEPHRECTOMY, LT SHOULDER SX, BILAT KNEE SX Family History: HTN Social History: ETOH, Lives with family History: Not Applicable RN Note Reviewed/Agreed w/PFSH: Yes Review of System Dictation CONSTITUTIONAL: NEGATIVE EXCEPT FOR HPI HEAD/FACE: NEGATIVE EXCEPT FOR HPI EENT: NEGATIVE EXCEPT FOR HPI RESPIRATORY: NEGATIVE EXCEPT FOR HPI GASTROINTESTINAL/ABDOMINAL: NEGATIVE EXCEPT FOR HPI RIGHT FLANK PAIN THAT RADIATES TO RIGHT LOWER QUADRANT GENITOURINARY: NEGATIVE EXCEPT FOR HPI MUSCULOSKELETAL: NEGATIVE EXCEPT FOR HPI INTEGUMENTARY: NEGATIVE EXCEPT FOR HPI NEUROLOGICAL/PSYCH: NEGATIVE EXCEPT FOR HPI HEMATOLOGIC/LYMPHATIC: NEGATIVE EXCEPT FOR HPI ALL SYSTEMS NEGATIVE, EXCEPT NOTED ABOVE. 13 POINT REVIEW OF SYSTEMS ASSESSED AND ALL NEGATIVE EXCEPT FOR ABOVE. Initial Vital Sign VS Vital Signs Date Time Temp Pulse Resp B/P (MAP) Pulse Ox O2 Delivery O2 Flow Rate FiO2 04/03/25 18:44 98.2 75 16 202/81 99 0 04/03/25 18:49 Room Air* 21 Physical Exam Dictation VITAL SIGNS REVIEWED GENERAL APPEARANCE: ALERT, ORIENTED X 3, MODERATE ACUTE DISTRESS, WELL DEVELOPED, NOURISHED. HEAD AND FACE: NON-TRAUMATIC. EYES: PERRL, PINK CONJUNCTIVAS, EYELID NO TRAUMA, ANTERIOR CHAMBER WITH ARCUS SENILIS. EARS: PINNAS INTACT AND NO SIGNS OF TRAUMA OR ERYTHEMA EAR CANALS CLEAR AND NO DISCHARGE TM NO ERYTHEMA NOSE: NO DISCHARGE, NO BLEEDING. OROPHARYNX: MOUTH NORMAL, TONGUE PINK, PHARYNX CLEAR,NO ERYTHEMA, TONSILS NO EXUDATES, NO ABSCESSES NOTED, MUCOUS MEMBRANE MOIST NECK: SUPPLE, NON-TENDER, NO THYROMEGALY, NO MASSES, NO JVD, NO BRUITS BREAST:DEFERRED CHEST:NO TENDERNESS, NO CREPITUS, NO PARADOXICAL MOVEMENT, NO RETRACTIONS LUNGS:CLEAR, WELL-VENTILATED, SYMMETRIC, NO RALES, NO WHEEZING, NO RHONCHI, NO STRIDOR, GOOD BREATH SOUNDS BILATERALLY HEART: REGULAR RATE, REGULAR RHYTHM, NO MURMUR, NO GALLOPS VASCULAR: NO PERIPHERAL EDEMA, ABDOMEN: SOFT, POSITIVE BOWEL SOUNDS, NONDISTENDED, NO GUARDING, MILD RIGHT CVAT, NO REBOUND, NO MASSES NO HEPATOMEGALY, NO SPLENOMEGALY, NO BASS'S SIGN, NO HERNIAS. RECTAL: DEFERRED GENITAL: DEFERRED NEUROLOGICAL: NORMAL SPEECH, MOTOR FUNCTION INTACT, SENSORY FUNCTION INTACT MUSCULOSKELETAL: NECK NONTENDER, FULL RANGE OF MOTION, BACK NONTENDER, FULL RANGE OF MOTION, EXTREMITIES: NONTENDER, FULL RANGE OF MOTION SKIN: COLOR PINK, DRY, NO TURGOR, NO RASH, NO LACERATIONS, NO ABRASIONS, NO CONTUSIONS. LYMPHATIC: DEFERRED Results (Laboratory/Radiology) Laboratory/Radiology Laboratory Tests Test 04/03/25 19:10 White Blood Count 3.3 K/uL (4.8-10.8) L Red Blood Count 2.99 MIL/uL (4.00-5.50) L Hemoglobin 9.0 g/dL (12.0-16.0) L Hematocrit 27.0 % (36-48) L Mean Corpuscular Volume 90.3 fL (79-99) Mean Corpuscular Hemoglobin 30.1 pg (27.0-33.0) Mean Corpuscular Hemoglobin Concent 33.3 g/dL (32.0-36.0) Red Cell Distribution Width 15.6 % (11.0-15.5) H Platelet Count 71 K/uL (130-400) L Mean Platelet Volume 8.9 fL (7.5-10.5) Immature Granulocyte % (Auto) 0.3 % (0-1) Neutrophils (%) (Auto) 57.3 % (40.0-77.0) Lymphocytes (%) (Auto) 28.1 % (21.0-51.0) Monocytes (%) (Auto) 6.7 % (3.0-13.0) Eosinophils (%) (Auto) 6.7 % (0.0-8.0) Basophils (%) (Auto) 0.9 % (0.0-5.0) Neutrophils # (Auto) 1.9 K/uL (1.8-7.7) Lymphocytes # (Auto) 0.9 K/uL (1.0-4.8) L Monocytes # (Auto) 0.2 K/uL (0.1-1.0) Eosinophils # (Auto) 0.22 K/uL (0.00-0.70) Basophils # (Auto) 0.03 K/uL (0.00-0.20) Absolute Immature Granulocyte (auto 0.01 K/uL (0-1) Nucleated Red Blood Cells 0.0 % (0.0-0.19) Sodium Level 142 mmol/L (136-145) Potassium Level 4.1 mmol/L (3.5-5.1) Chloride Level 110 mmol/L (101-111) Carbon Dioxide Level 27 mmol/L (21-32) Blood Urea Nitrogen 25 mg/dL (7-18) H Creatinine 1.1 mg/dL (0.5-1.0) H Glomerular Filtration Rate Calc 55 mL/min (>90) Random Glucose 134 mg/dL (70-105) H Total Calcium 8.4 mg/dL (8.5-10.1) L REASON: NECK PAIN THAT RADIATES TO RIGHT LOWER QUADRANT HISTORY OF UROLITHIASIS ORDERING PHYSICIAN: AUGUSTA LOPEZ NP PROCEDURE: ABD PEL WO - CT ABDOMEN/PELVIS W/O CONTRAST EXAMINATION: CT Abdomen and Pelvis Without IV contrast CLINICAL HISTORY: Patient presents with neck pain radiating to the right lower quadrant and history of urolithiasis. COMPARISON: CT abdomen and pelvis dated February 26, 2025. TECHNIQUE: Axial computed tomography images of the abdomen and pelvis without intravenous contrast. CONTRAST: No IV contrast. FINDINGS: LUNG BASES: Interval resolution of previously visualized bilateral minimal pleural effusions. The lung bases appear clear. No pleural effusion is seen. LIVER: Nodular contour concerning for cirrhosis. GALLBLADDER AND BILE DUCTS: Surgically absent gallbladder. No biliary ductal dilatation. PANCREAS: Unremarkable. SPLEEN: Stable splenomegaly measuring 15 cm in craniocaudal dimension. ADRENAL GLANDS: Unremarkable. KIDNEYS, URETERS, AND BLADDER: Post left nephrectomy. Stable small right renal cyst. No hydronephrosis or hydroureter. No urinary calculi are seen. STOMACH AND BOWEL: Occasional colonic diverticulosis without diverticulitis. No evidence of bowel obstruction. No findings suggesting enteritis or colitis. APPENDIX: No evidence of acute appendicitis. PERITONEUM: Ascites. Generalized anasarca. No free air. LYMPH NODES: No lymphadenopathy is evident. REPRODUCTIVE: Post hysterectomy. VASCULATURE: Atheromatous calcifications in the aorta without evidence of aneurysm. BONES: Multilevel mild degenerative changes in the spine. No acute osseous pathology. IMPRESSION: Nodular liver contour concerning for cirrhosis. Stable splenomegaly measuring 15 cm. Surgically absent gallbladder. Post left nephrectomy and post hysterectomy. Stable small right renal cyst. Occasional colonic diverticulosis without evidence of diverticulitis. Interval resolution of previously visualized bilateral pleural effusions. /[facility] Reviewed?: Yes ED Course ED Course Orders Procedure Category Date Status Time Cbc With Differential LAB 04/03/25 Complete 18:46 0.9%Nacl 1000ml (Ns PHA 04/03/25 Complete 1000ml) 19:00 Ketorolac PHA 04/03/25 Complete Tromethamine 30mg/Ml 19:00 Ct Abdomen/Pelvis W/O CT 04/03/25 Resulted Contrast 18:46 Basic Metabolic Panel LAB 04/03/25 Complete 18:46 Morphine 2mg Syg PHA 04/03/25 In Process (Morphine 2mg Syg) 21:30 Cyclobenzaprine Hcl PHA 04/03/25 In Process (Cyclobenzaprine Hcl 21:30 Current Medications Medications (Trade) Dose Ordered Sig/Shazia Route PRN Reason Start Time Stop Time Status Last Admin Dose Admin Cyclobenzaprine HCl (Cyclobenzaprine HCl) 10 mg ONCE ONCE PO 04/03/25 21:30 04/03/25 21:31 Ketorolac Tromethamine (toRADol) 30 mg ONCE ONCE IVP 04/03/25 19:00 04/03/25 19:01 DC 04/03/25 18:59 Morphine Sulfate (morPHINE 2MG SYG) 2 mg ONCE ONCE IVP 04/03/25 21:30 04/03/25 21:31 Sodium Chloride 1,000 ml @ 0 mls/hr ONCE ONCE IV 04/03/25 19:00 04/03/25 19:01 DC 04/03/25 18:59 Vital Signs Date Time Temp Pulse Resp B/P (MAP) Pulse Ox O2 Delivery O2 Flow Rate FiO2 04/03/25 18:49 98.2 75 16 202/81 99 Room Air* 0 21 04/03/25 18:44 98.2 75 16 202/81 99 0 2130/PATIENT UNABLE TO URINATE AT THIS TIME AND WISHES TO GO HOME. SHE IS AWARE THAT CT IS NEGATIVE FOR UROLITHIASIS. STATES HER PAIN IS MARKEDLY IMPROVED. WE WILL DISCHARGE PATIENT HOME AND HAVE HER FOLLOW UP WITH HER PRIMARY CARE DOCTOR IN THE NEXT 1-2 DAYS. Medical Decision Making MDM MDM: DIFFERENTIAL DIAGNOSIS: PYELONEPHRITIS/UTI/URETERAL COLIC/UROLITHIASIS/APPENDICITIS/URINARY TRACT INFECTION/ELECTROLYTE IMBALANCE/ANEMIA/MUSCLE STRAIN RATIONALE: TESTS CONSIDERED AND ORDERED SECONDARY TO SHARED DECISION MAKING INCLUDE: RADIOLOGY/LABS PREVIOUS OUTSIDE RECORDS REVIEWED: OLD ER VISITS. RISK OF COMPLICATION AND/OR MORBIDITY OR MORTALITY OF PATIENT MANAGEMENT: NONE MEDICATIONS-PER MEDICATION RECONCILIATION NEED FOR HOSPITALIZATION: PATIENT DOES NOT MEET CRITERIA FOR HOSPITALIZATION. NONE NEED FOR EMERGENCY MAJOR/MINOR SURGERY: NO THERE ARE NO SOCIAL CONCERNS WITH THIS PATIENT. PRESCRIPTION DRUG MANAGEMENT TYLENOL WITH CODEINE/FLEXERIL PRESCRIPTIONS WILL INCLUDE SYMPTOMATIC CARE PATIENT'S PRIOR EXTERNAL MEDICAL RECORDS FROM OTHER ER VISITS WERE REVIEWED BY ME INDICATED. PRIOR TESTING AND RESULTS FROM PREVIOUS VISITS WERE REVIEWED. PRIOR TESTS WERE TAKEN INTO ACCOUNT WITH MEDICAL DECISION MAKING AND RESOURCE UTILIZATION, INDEPENDENT HISTORIAN/HISTORIANS WERE USED TO OBTAIN COMPLETE MEDICAL HISTORY. I INDEPENDENTLY INTERPRETED THE TEST THAT WERE PERFORMED, RESULTS WERE REVIEWED BY ME AND CONSIDERED FINDINGS ON RADIOLOGY IF ORDERED. MEDICAL MANAGEMENT AND EXAMINATION INTERPRETATION DISCUSSIONS WERE HAD BY ME WITH OTHER QUALIFIED HEALTHCARE PROFESSIONALS INDICATED FOR THE PATIENT'S CARE. DX & DISP Disposition: Discharge Departure Impression: Primary Impression: Acute lumbar myofascial strain Additional Impression: Stage 3 chronic kidney disease Condition: Stable Scripts Acetaminophen with Codeine (Acetaminophen-Cod #3 Tablet) 300 Mg-30 Mg Tablet 1 TAB PO Q4H PRN for MODERATE TO SEVERE PAIN, #15 TAB 0 Refills Prov: AUGUSTA LOPEZ [employer] 04/03/25 Cyclobenzaprine HCl (Cyclobenzaprine HCl) 10 Mg Tablet 1 TAB PO TID for muscle spasms for 10 Days, #30 TAB 0 Refills Prov: AUGUSTA LOPEZ [employer] 04/03/25 Additional Instructions: Follow-up with primary care provider in 1 to 2 days. Take medications as directed here in the emergency room. Okay to continue home medications unless otherwise discussed during your visit in the emergency room today. Return to your nearest emergency room if symptoms worsen or if there is no improvement. Call 911 if you need immediate assistance. Take Tylenol or Motrin [id number] as needed and if no contraindications are present. Increase oral hydration. A wound culture or urine culture was ordered here in the emergency room department please follow-up with primary care provider and advise them to get repeat ports from our facility. If you had any Rashaun wrap/splints that were applied here, please do not remove them until you see your primary care or specialty. Take Flexeril every 8 hours for the next two days. Suggest Tylenol for mild pain. Warm compresses to pain three to 4 times a day and see your primary care doctor for follow up and management. Referrals: FLORINA MOCTEZUMA (PCP) Time of Disposition: 21:30 I have reviewed the case, and I agree with, Diagnosis and Plan AUGUSTA LOPEZ NP Apr 03, 2025 18:50
[2025-04-03] MEDS: 0.9%NACL 1000ML 1,000 ML IV ONE (18:59)
[2025-04-03 19:21] LABS: IMMATURE GRANULOCYTE ABSOLUTE 0.01 K/uL (0-1); NUCLEATED RED BLOOD CELLS 0.0 % (0.0-0.19); PLATELET COUNT (AUTO) 71 K/uL (130-400); RED BLOOD CELL COUNT(AUTO) 2.99 MIL/uL (4.00-5.50); RED CELL DISTRIBUTION WIDTH 15.6 % (11.0-15.5); WHITE BLOOD COUNT (AUTO) 3.3 K/uL (4.8-10.8)
[2025-04-03 19:29] LABS: CREATININE 1.1 mg/dL (0.5-1.0); GLOMERULAR FILTR. RATE CALC 55.0 mL/min (>90); GLUCOSE,RANDOM 134.0 mg/dL (70-105); SODIUM SERUM 142.0 mmol/L (136-145); UREA NITROGEN, BLOOD 25.0 mg/dL (7-18)
--- NOTE | 2025-04-03 20:27 | HMCIMG ---
EXAMINATION: CT Abdomen and Pelvis Without IV contrast CLINICAL HISTORY: Patient presents with neck pain radiating to the right lower quadrant and history of urolithiasis. COMPARISON: CT abdomen and pelvis dated February 26, 2025. TECHNIQUE: Axial computed tomography images of the abdomen and pelvis without intravenous contrast. CONTRAST: No IV contrast. FINDINGS: LUNG BASES: Interval resolution of previously visualized bilateral minimal pleural effusions. The lung bases appear clear. No pleural effusion is seen. LIVER: Nodular contour concerning for cirrhosis. GALLBLADDER AND BILE DUCTS: Surgically absent gallbladder. No biliary ductal dilatation. PANCREAS: Unremarkable. SPLEEN: Stable splenomegaly measuring 15 cm in craniocaudal dimension. ADRENAL GLANDS: Unremarkable. KIDNEYS, URETERS, AND BLADDER: Post left nephrectomy. Stable small right renal cyst. No hydronephrosis or hydroureter. No urinary calculi are seen. STOMACH AND BOWEL: Occasional colonic diverticulosis without diverticulitis. No evidence of bowel obstruction. No findings suggesting enteritis or colitis. APPENDIX: No evidence of acute appendicitis. PERITONEUM: Ascites. Generalized anasarca. No free air. LYMPH NODES: No lymphadenopathy is evident. REPRODUCTIVE: Post hysterectomy. VASCULATURE: Atheromatous calcifications in the aorta without evidence of aneurysm. BONES: Multilevel mild degenerative changes in the spine. No acute osseous pathology. IMPRESSION: Nodular liver contour concerning for cirrhosis. Stable splenomegaly measuring 15 cm. Surgically absent gallbladder. Post left nephrectomy and post hysterectomy. Stable small right renal cyst. Occasional colonic diverticulosis without evidence of diverticulitis. Interval resolution of previously visualized bilateral pleural effusions. /[place]
[2025-04-03] MEDS: CYCLOBENZAPRINE HCL 10 MG TABLET PO ONE (21:28)
[2025-04-03] MEDS ORDERED: CYCL-309 PO (21:31)
[2025-04-03] MEDS ORDERED: ACET-2079 PO (21:31)
[2025-04-03 21:52] VITALS: BP 152/65; PULSE 70; RESP 17; TEMP 98.2; O2SAT 99
== END 2025-04-03 21:52 | disposition home or self-care (01) ==
LOC: EDH 18:42
DX: S39.012A Strain of muscle, fascia and tendon of lower back, initial encounter (principal); I12.9 Hypertensive chronic kidney disease with stage 1 through stage 4 chronic kidney disease, or unspecified chronic kidney disease; E11.22 Type 2 diabetes mellitus with diabetic chronic kidney disease; N18.30 Chronic kidney disease, stage 3 unspecified; K31.84 Gastroparesis; E11.43 Type 2 diabetes mellitus with diabetic autonomic (poly)neuropathy; Z79.4 Long term (current) use of insulin; Z79.899 Other long term (current) drug therapy; Z90.5 Acquired absence of kidney; Z90.710 Acquired absence of both cervix and uterus; X58.XXXA Exposure to other specified factors, initial encounter; Y93.89 Activity, other specified; Y92.89 Other specified places as the place of occurrence of the external cause; Y99.8 Other external cause status
CPT/HCPCS: 99285; 74176; 96374; 96375; 80048; 85025; 87086; 87088; 87186; 36415; J1885; J2270; J7030

== ENCOUNTER → 2025-04-30 | Outpatient (CLI) | payer OTHER, MEDICARE ==
[~2025-04-30] MED LIST changes: +ACET-2079 PO; +CIPR-279 PO; +CYCL-309 PO
--- NOTE | 2025-04-30 09:50 | NUR ---
U/S GUIDED PARACENTESIS PROCEDURE PERFORMED BY DR. ALE NOLAN. PUNCTURE SITE LLQ AND PATIENT TOLERATED PROCEDURE WELL. TOTAL REMOVED 2.0 LITERS OF CLEAR, YELLOW ASCITES FLUID. ALBUMIN 25% 50 GRAMS IV GIVEN DURING PROCEDURE. SPECIMEN SENT TO LAB. END OF PROCEDURE AT 0935. CATHETER REMOVED AND DRESSING APPLIED- NO BLEEDING NOTED. DISCHARGE INSTRUCTIONS GIVEN TO PATIENT AND VERBALIZED UNDERSTANDING. PATIENT DISCHARGED AMBULATORY IN STABLE CONDITION WITH NO C/O PAIN.
[2025-04-30 09:51] LABS: IMMATURE GRANULOCYTE ABSOLUTE 0.01 K/uL (0-1); NUCLEATED RED BLOOD CELLS 0.0 % (0.0-0.19); PLATELET COUNT (AUTO) 74 K/uL (130-400); RED BLOOD CELL COUNT(AUTO) 2.69 MIL/uL (4.00-5.50); RED CELL DISTRIBUTION WIDTH 14.8 % (11.0-15.5); WHITE BLOOD COUNT (AUTO) 2.4 K/uL (4.8-10.8)
[2025-04-30 10:01] LABS: INR 1.19 (0.85-1.15)
[2025-04-30 10:06] LABS: ASPARTATE AMINOTRANSFERASE 39.0 U/L (10-37); CREATININE 1.1 mg/dL (0.5-1.0); GLOMERULAR FILTR. RATE CALC 55.0 mL/min (>90); GLUCOSE,RANDOM 168.0 mg/dL (70-105); SODIUM SERUM 138.0 mmol/L (136-145); TOTAL PROTEIN, SERUM 5.6 g/dL (6.0-8.3); UREA NITROGEN, BLOOD 28.0 mg/dL (7-18)
--- NOTE | 2025-04-30 10:49 | HMCIMG ---
US ABDOMINAL PARACENTESIS IR REASON: ASCITES TECHNIQUE: This procedure is performed by Dr Mars George and Dr Jeanne Neal Paracentesis was performed with ultrasound guidance. The puncture site was selected in the Left lower quadrant and overlying skin prepped and draped in a sterile fashion. 1% Xylocaine infiltration was performed. Catheter was placed in the fluid using trocar technique. 2 L were removed. Fluid sample was submitted for laboratory evaluation. The patient showed no evidence of complication during the procedure. The patient tolerated the procedure well. IMPRESSION: 1. Ultrasound-guided paracentesis. 2. 2 L were removed
[2025-04-30 12:18] LABS: BASOPHILS % (MANUAL) 1 % (0-2); EOSINOPHILS % (MANUAL) 11 % (1-6); LYMPHOCYTES % (MANUAL) 32 % (22-44); MONOCYTES % (MANUAL) 1 % (2-9); MYELOCYTES % 1 % (0-0); PROMYELOCYTES % 2 (0-0); REACTIVE LYMPHOCYTES 1 % (0-0); SEGMENTED NEUTROPHILS % 51 % (40-70)
[2025-04-30 12:19] LABS: MAN.DIFF COMMENT-IMPRESSION MANUAL DIFFERENTIAL; WBC MORPHOLOGY IMMATURE LYMPHS 1+
[2025-04-30 12:20] LABS: PLATELET MORPHOLOGY COMMENT DECREASED
[2025-04-30 12:47] LABS: APPEARANCE BODY FLUID CLOUDY (CLEAR); COLOR,BODY FLUID LT YELLOW (LT YELLOW); SPECIMENTYPE,BODY FLUID ASCITES; TOTAL VOLUME,BODY FLUID 2000 mL
[2025-04-30 13:00] LABS: BODY FLUID RBC 288 /cu. mm.; BODY FLUID WBC 487 /cu. mm.
[2025-04-30 13:03] LABS: ALBUMIN,BODY FLUID < 0.6 g/dL; TOTAL PROTEIN,BODY FLUID < 2.0 g/dL
[2025-04-30 14:22] LABS: BF LYMPHOCYTE 54 %; BF MACROPHAGE 8; BF MESOTHELIAL 25 %; BF MONOCYTE 9 %; BF NEUTROPHIL 4.0 %; BF TOTAL CELLS COUNTED 100
[2025-04-30] MEDS: ALBUMIN HUMAN 25% 200 ML IV ONE (15:04)
== END | disposition home or self-care (01) ==
LOC: RAH 08:00
PROVIDERS: ATTEND Internal Medicine Gastroenterology
DX: R18.8 Other ascites (principal); K74.60 Unspecified cirrhosis of liver; E11.9 Type 2 diabetes mellitus without complications; K92.1 Melena; D50.0 Iron deficiency anemia secondary to blood loss (chronic); I85.10 Secondary esophageal varices without bleeding; D13.2 Benign neoplasm of duodenum; K29.70 Gastritis, unspecified, without bleeding; Z20.822 Contact with and (suspected) exposure to COVID-19; Z90.49 Acquired absence of other specified parts of digestive tract; Z98.890 Other specified postprocedural states; Z79.899 Other long term (current) drug therapy
CPT/HCPCS: 49083; 84157; 80053; 85025; 89051; 85610; 85730; 87071; 87076; 87205; 82042; 36415; 88108; 88305; P9046; C1729

== ENCOUNTER 2025-05-31 11:47 | Emergency (ER) | payer OTHER, MEDICARE ==
[~2025-05-31] VITALS: Ht 152.4 cm; Wt 80.7 kg
[~2025-05-31 11:47] MED LIST changes: -ACET-2079 PO; -CIPR-279 PO; -CYCL-309 PO; -FERR325T29 PO; +FURO20TA4 PO; +SPIR25TA6 PO
[2025-05-31 13:31] LABS: IMMATURE GRANULOCYTE ABSOLUTE 0.01 K/uL (0-1); NUCLEATED RED BLOOD CELLS 0.0 % (0.0-0.19); PLATELET COUNT (AUTO) 90 K/uL (130-400); RED BLOOD CELL COUNT(AUTO) 2.70 MIL/uL (4.00-5.50); RED CELL DISTRIBUTION WIDTH 14.3 % (11.0-15.5); WHITE BLOOD COUNT (AUTO) 3.4 K/uL (4.8-10.8)
[2025-05-31 13:47] LABS: CREATININE 1.2 mg/dL (0.5-1.0); GLOMERULAR FILTR. RATE CALC 50.0 mL/min (>90); GLUCOSE,RANDOM 189.0 mg/dL (70-105); SODIUM SERUM 142.0 mmol/L (136-145); UREA NITROGEN, BLOOD 24.0 mg/dL (7-18)
--- NOTE | 2025-05-31 13:54 | ERN ---
ED Note History of Present Illness Stated Complaint: ABDOMINAL PAIN Chief Complaint: Abdominal Pain Time Seen by MD: 11:49 Time Seen by Midlevel: 11:55 Dictation: 65-year-old female with a history of liver cirrhosis , diabetes and anemia co tani in with complaints of abdominal pain, bloating. Patient states her last period was one month and a half ago. Patient states she sees [facility] for her liver disease. Denies having any recent bloody emesis or bloody stools. Allergies: Coded Allergies: No Known Drug Allergies (Verified Allergy, 06/25/13) Home Meds Active Scripts Pantoprazole Sodium (Protonix) 40 Mg Tablet.dr, 40 MG PO BID for 60 Days, #120 TAB Prov:LAURA FOX PAC 12/10/24 Lactulose (Lactulose) 10 Gram/15 Ml Solution, 30 ML PO BID for ammonia, #500 ML 0 Refills Prov:AMARA BURNS PAC 11/06/24 Reported Medications Furosemide (Furosemide) 20 Mg Tablet, 2 TAB PO BID for 30 Days, #30 TAB 0 Refills 05/16/25 Spironolactone (Spironolactone) 25 Mg Tablet, 25 MG PO HS, TAB 05/16/25 Insulin Degludec (Tresiba) 100 Unit/Ml Vial, 16 UNIT SQ BID, VIAL 12/08/24 Past Medical History Past Medical History: Anemia, Diabetes-Type II, Hypertension, Liver Disease, Other Additional Past Medical Hx: liver cirrhosis, heart murmur Surgical History: Hysterectomy, Cholecystectomy, Other Surgical History Other: egd, paracentensis, left kidney removal Family History: HTN Social History: ETOH, Lives with family History: Not Applicable Review of System Dictation Constitutional: Negative for fever,chills, and weight loss Eyes: Negative for injury, pain,redness, and discharge ENT: Negative for injury,pain or swelling Cardiovascular: Negative for chest pain, palpitations, and edema Respiratory: Negative for shortness of breath, cough, and wheezing, Abdomen/GI: Abdominal pain with distention and bloating Back: Negative for injury and pain : Negative for injury, bleeding and discharge MS/Extremity: Negative for injury and deformity Skin: Negative for rash, and discoloration Neuro: Negative for headache, weakness, numbness, tingling, and seizure Psych: Negative for suicide ideation, homicidal ideation, and hallucinations Review of Systems: was completed Initial Vital Sign VS Vital Signs Date Time Temp Pulse Resp B/P (MAP) Pulse Ox O2 Delivery O2 Flow Rate FiO2 05/31/25 11:48 97.7 79 19 161/75 99 Room Air 0 05/31/25 11:55 21 Physical Exam Dictation General: awake, alert, NAD Head/Face: Normocephalic, atraumatic Eyes: PERRL, EOMI, vision at baseline ENT: oral cavity clear, TMs clear, no signs of infection Neck: Trachea midline, supple, no nuchal rigidity Cardiovascular: RRR, normal S1/S2, No MRGs, no JVD Respiratory: CTAB, no respiratory distress, No rales or wheezes Abdomen: Soft, non-tender, distended, normal bowel sounds, no guarding or rebound. Skin: Warm, dry, normal turgor, no rash MS/Extremity: Pulses equal, no cyanosis, neurovascular intact, FROM Neuro: COAx4, GCS 15, strength 5/5, CN 2-12 intact, normal cerebellar exam, normal gait, Psych: Normal behavior, mood, and affect normal Results (Laboratory/Radiology) Laboratory/Radiology Laboratory Tests Test 05/31/25 12:06 05/31/25 13:52 White Blood Count 3.4 K/uL (4.8-10.8) L Red Blood Count 2.70 MIL/uL (4.00-5.50) L Hemoglobin 7.8 g/dL (12.0-16.0) L Hematocrit 24.2 % (36-48) L Mean Corpuscular Volume 89.6 fL (79-99) Mean Corpuscular Hemoglobin 28.9 pg (27.0-33.0) Mean Corpuscular Hemoglobin Concent 32.2 g/dL (32.0-36.0) Red Cell Distribution Width 14.3 % (11.0-15.5) Platelet Count 90 K/uL (130-400) L Mean Platelet Volume 9.6 fL (7.5-10.5) Immature Granulocyte % (Auto) 0.3 % (0-1) Neutrophils (%) (Auto) 66.1 % (40.0-77.0) Lymphocytes (%) (Auto) 22.4 % (21.0-51.0) Monocytes (%) (Auto) 5.6 % (3.0-13.0) Eosinophils (%) (Auto) 5.0 % (0.0-8.0) Basophils (%) (Auto) 0.6 % (0.0-5.0) Neutrophils # (Auto) 2.3 K/uL (1.8-7.7) Lymphocytes # (Auto) 0.8 K/uL (1.0-4.8) L Monocytes # (Auto) 0.2 K/uL (0.1-1.0) Eosinophils # (Auto) 0.17 K/uL (0.00-0.70) Basophils # (Auto) 0.02 K/uL (0.00-0.20) Absolute Immature Granulocyte (auto 0.01 K/uL (0-1) Nucleated Red Blood Cells 0.0 % (0.0-0.19) Prothrombin Time 12.1 SEC (9.6-11.6) H Prothromb Time International Ratio 1.16 (0.85-1.15) H Activated Partial Thromboplast Time 25.4 SEC (26.3-35.5) L Sodium Level 142 mmol/L (136-145) Potassium Level 3.7 mmol/L (3.5-5.1) Chloride Level 108 mmol/L (101-111) Carbon Dioxide Level 25 mmol/L (21-32) Blood Urea Nitrogen 24 mg/dL (7-18) H Creatinine 1.2 mg/dL (0.5-1.0) H Glomerular Filtration Rate Calc 50 mL/min (>90) Random Glucose 189 mg/dL (70-105) H Total Calcium 7.8 mg/dL (8.5-10.1) L Urine Color YELLOW (YELLOW) Urine Appearance CLOUDY (CLEAR) H Urine pH 6.5 (5.0-8.0) Urine Specific [place] 1.019 (1.001-1.031) Urine Protein 300 mg/dL (NEGATIVE) H Urine Glucose (UA) 70 mg/dL (NEGATIVE) H Urine Ketones NEGATIVE mg/dL (NEGATIVE) Urine Occult Blood SMALL (NEGATIVE) H Urine Nitrate NEGATIVE (NEGATIVE) Urine Bilirubin NEGATIVE mg/dL (NEGATIVE) Urine Urobilinogen 3 mg/dL (0.2-1.0) H Urine Leukocyte Esterase 250 Denny/uL (NEGATIVE) H Urine RBC 6-10 /HPF (0-1) H Urine WBC >100 /HPF (0-1) H Urine WBC Clumps (Auto) RARE /HPF (0-1) Urine Squamous Epithelial Cells RARE /HPF (0-2) Urine Bacteria MOD /HPF (None Seen) Urine Hyaline Casts 0-1 /LPF (0-1 /LPF) Urine Other Casts 2 /LPF (None Seen) Labs Reviewed?: Yes ED Course ED Course Orders Procedure Category Date Status Time Cbc With Differential LAB 05/31/25 Complete 11:49 Basic Metabolic Panel LAB 05/31/25 Complete 11:49 Type And Screen BBK 05/31/25 Complete 11:49 Urinalysis Profile LAB 05/31/25 Complete 11:49 Pt And Ptt LAB 05/31/25 Complete 11:53 Us Abdominal US 05/31/25 Taken Paracentesis Ir 11:55 Culture Urine LENARD 05/31/25 In Process 14:20 Ceftriaxone 1g Vial PHA 05/31/25 Logged (Rocephine 1g Inj) 15:39 Current Medications Medications (Trade) Dose Ordered Sig/Shazia Route PRN Reason Start Time Stop Time Status Last Admin Dose Admin Ceftriaxone Sodium (ROCEphine 1G INJ) 1 gm ONCE STAT IVPB 05/31/25 15:39 05/31/25 15:40 UNV Vital Signs Date Time Temp Pulse Resp B/P (MAP) Pulse Ox O2 Delivery O2 Flow Rate FiO2 05/31/25 15:32 97.7 74 16 168/56 99 Room Air* 0 21 05/31/25 11:55 97.7 79 18 161/75 99 Room Air* 0 21 05/31/25 11:48 97.7 79 19 161/75 99 Room Air 0 Medical Decision Making MDM MDM: 65-year-old female with a history of liver cirrhosis , diabetes and anemia coming in with complaints of abdominal pain, bloating. Patient states her last period was one month and a half ago. Patient states she sees [facility] for her liver disease. Denies having any recent bloody emesis or bloody stools. CBC shows leukocytopenia, hemoglobin is 7.8 and hematocrit of 24. He is all consistent with the patient's previous findings. Platelet count is 90. Chemistry shows normal electrolytes. Creatinine is 1.2 consistent with the patient's previous history. Patient went to Interventional Radiology for an ultrasound-guided paracentesis where they removed 3 L, and no need to give alb umin. On reassessment after the procedure patient is awake alert and oriented, states she feels much better and vital signs have remained stable. UA does show a urinary tract infection. Patient received Rocephin in the emergency room and we discharged with the antibiotics. Differential diagnosis: Ascites, decompensated liver cirrhosis, fluid overload Rationale: Tests considered and ordered secondary to shared decision making include: Previous outside records reviewed: Old ER visits. Risk of complication and/or morbidity or mortality of patient management: None Medications-Per medication reconciliation Need for hospitalization: Patient does not meet criteria for hospitalization. Need for emergency major/minor surgery: No There are no social concerns with this patient. Prescription drug management Prescriptions will include symptomatic care Patient's prior external medical records from other ER visits were reviewed by me as indicated. Prior testing and results from previous visits were reviewed. Prior tests were taken into account with medical decision making and resource utilization, independent historian/historians were used to obtain complete medical history. I independently interpreted the test that were performed, results were reviewed by me and considered findings on radiology if ordered. Medical management and examination interpretation discussions were had by me with other qualified healthcare professionals as indicated for the patient's care. DX & DISP Disposition: Discharge Departure Impression: Primary Impression: Urinary tract infection Additional Impression: Liver cirrhosis secondary to GIRON (nonalcoholic steatohepatitis) Condition: Stable Scripts Nitrofurantoin/Nitrofuran Mac (Macrobid) 100 Mg Cap 1 CAP PO BID for 7 Days, #14 CAP 0 Refills Prov: JOSÉ MIGUEL DENNEY 05/31/25 Additional Instructions: You have a urinary tract infection. He will be given antibiotics in the ER and discharged with a prescription. Make sure you follow up with your primary doctor. Return to the hospital you develop any back pain, fever nausea or vomiting. Referrals: MASHA GRIER MD (PCP) Time of Disposition: 15:49 I have reviewed the case, and I agree with, Diagnosis and Plan JOSÉ MIGUEL DENNEY May 31, 2025 13:54
[2025-05-31 13:56] LABS: INR 1.16 (0.85-1.15)
[2025-05-31 14:16] LABS: APPEARANCE,URINE CLOUDY (CLEAR); GLUCOSE, URINE (UA) 70 mg/dL (NEGATIVE); LEUKOCYTE ESTERASE ,URINE 250 Leu/uL (NEGATIVE); NITRATE,URINE NEGATIVE (NEGATIVE); OCCULT BLOOD,URINE SMALL (NEGATIVE)
[2025-05-31 14:19] LABS: ADD UA MICROSCOPIC YES
[2025-05-31 14:26] LABS: HYALINE CASTS, URINE 0-1 /LPF (0-1 /LPF); OTHER CASTS, URINE 2 /LPF (None Seen); SQUAMOUS EPITHELIAL CELL,UR RARE /HPF (0-2); WBC CLUMP RARE /HPF (0-1)
--- NOTE | 2025-05-31 15:10 | NUR ---
ULTRASOUND GUIDED PARACENTESIS PROCEDURE PERFORMED BY DR. ALE NOLAN. PUNCTURE SITE LLQ AND PATIENT TOLERATED PROCEDURE WELL. TOTAL REMOVED 3.0 LITERS OF CLEAR, YELLOW ASCITES FLUID. END OF PROCEDURE AT 1455. CATHETER REMOVED AND DRESSING APPLIED. NO BLEEDING NOTED. REPORT GIVEN TO RAHEL SOLIMAN RN AND PATIENT TRANSPORTED TO ED VIA STRETCHER. AAO X3 WITH NO C/O PAIN.
--- NOTE | 2025-05-31 15:24 | NUR ---
PER CRYSTAL IR DR GRECO PERFORMED PARA LLQ REMOVING 3L NO ALBUMIN ADMIN LESS THAN 4 L 4X4 GAUZE AND OPSIGHT PLACES OVER ACCESS POINT
[2025-05-31 15:32] VITALS: BP 168/56; PULSE 74; RESP 16; TEMP 97.7; O2SAT 99
[2025-05-31] MEDS ORDERED: MACR100 PO (15:49)
--- NOTE | 2025-06-04 09:49 | HMCIMG ---
US ABDOMINAL PARACENTESIS IR REASON: abdominal pain, distension, sob TECHNIQUE: Paracentesis was performed with ultrasound guidance. The puncture site was selected in the Left lower quadrant and overlying skin prepped and draped in a sterile fashion. 1% Xylocaine infiltration was performed. Catheter was placed in the fluid using trocar technique. 3 L were removed. Fluid sample was submitted for laboratory evaluation. The patient showed no evidence of complication during the procedure. Patient tolerated procedure well. IMPRESSION: 1. Ultrasound-guided paracentesis.
== END 2025-05-31 16:33 | disposition home or self-care (01) ==
LOC: EDH 11:47
DX: K74.60 Unspecified cirrhosis of liver (principal); K75.81 Nonalcoholic steatohepatitis (NASH); N39.0 Urinary tract infection, site not specified; E11.9 Type 2 diabetes mellitus without complications; I10 Essential (primary) hypertension; Z90.49 Acquired absence of other specified parts of digestive tract; Z90.710 Acquired absence of both cervix and uterus; Z79.899 Other long term (current) drug therapy; Z79.4 Long term (current) use of insulin
CPT/HCPCS: 49083; 99285; 96374; 80048; 85025; 85610; 85730; 86850; 86900; 86901; 87086 ×2; 87186; 81001; 36415; J0696; C1729

== ENCOUNTER 2025-07-02 18:57 | Inpatient (IN) | payer OTHER, MEDICARE ==
[~2025-07-02] VITALS: Ht 152.4 cm; Wt 77.0 kg
[2025-07-02 19:34] LABS: IMMATURE GRANULOCYTE ABSOLUTE 0.01 K/uL (0-1); NUCLEATED RED BLOOD CELLS 0.0 % (0.0-0.19); PLATELET COUNT (AUTO) 83 K/uL (130-400); RED BLOOD CELL COUNT(AUTO) 2.84 MIL/uL (4.00-5.50); RED CELL DISTRIBUTION WIDTH 14.5 % (11.0-15.5); WHITE BLOOD COUNT (AUTO) 3.2 K/uL (4.8-10.8)
[2025-07-02 19:40] LABS: CREATININE 1.3 mg/dL (0.5-1.0); GLOMERULAR FILTR. RATE CALC 45.0 mL/min (>90); GLUCOSE,RANDOM 169.0 mg/dL (70-105); SODIUM SERUM 138.0 mmol/L (136-145); UREA NITROGEN, BLOOD 22.0 mg/dL (7-18)
[2025-07-02 19:44] LABS: ASPARTATE AMINOTRANSFERASE 41.0 U/L (10-37); TOTAL PROTEIN, SERUM 6.3 g/dL (6.0-8.3)
[2025-07-02 20:04] LABS: APPEARANCE,URINE CLEAR (CLEAR); GLUCOSE, URINE (UA) 70 mg/dL (NEGATIVE); LEUKOCYTE ESTERASE ,URINE 25 Leu/uL (NEGATIVE); NITRATE,URINE 2+ (NEGATIVE); OCCULT BLOOD,URINE SMALL (NEGATIVE)
[2025-07-02 20:05] LABS: ADD UA MICROSCOPIC YES
[2025-07-02 20:07] LABS: OTHER CASTS, URINE 1 /LPF (None Seen); SQUAMOUS EPITHELIAL CELL,UR RARE /HPF (0-2)
[2025-07-02] MEDS: FAMOTIDINE 20MG VIAL IV ONE (20:34)
[2025-07-02] MEDS: 0.9%NACL 1000ML 1,000 ML IV STA (20:39)
--- NOTE | 2025-07-02 20:42 | ERN ---
ED Note History of Present Illness Stated Complaint: WEAKNESS, HEADACHE, NVD Chief Complaint: Weakness Time Seen by MD: 19:02 Time Seen by Midlevel: 19:08 Dictation: 65-year-old female coming in with complaints of generalized weakness, nausea and vomiting, abdominal pain, no abdominal distention. Patient has a history of liver cirrhosis, last paracentesis with a 06/14. Denies having any hemoptysis or melena or hematochezia. Allergies: Coded Allergies: No Known Drug Allergies (Verified Allergy, 06/25/13) Home Meds Active Scripts Nitrofurantoin/Nitrofuran Mac (Macrobid) 100 Mg Cap, 1 CAP PO BID for 7 Days, #14 CAP 0 Refills Prov:JOSÉ MIGUEL DENNEY [employer]IC SUPERVISOR 05/31/25 Pantoprazole Sodium (Protonix) 40 Mg Tablet.dr, 40 MG PO BID for 60 Days, #120 TAB Prov:LAURA FOX PAC 12/10/24 Lactulose (Lactulose) 10 Gram/15 Ml Solution, 30 ML PO BID for ammonia, #500 ML 0 Refills Prov:AMARA BURNS PAC 11/06/24 Reported Medications Furosemide (Furosemide) 20 Mg Tablet, 2 TAB PO BID for 30 Days, #30 TAB 0 Refills 05/16/25 Spironolactone (Spironolactone) 25 Mg Tablet, 25 MG PO HS, TAB 05/16/25 Insulin Degludec (Tresiba) 100 Unit/Ml Vial, 16 UNIT SQ BID, VIAL 12/08/24 Past Medical History Past Medical History: Anemia, Diabetes-Type II, Hypertension, Liver Disease, Other Additional Past Medical Hx: liver cirrhosis, heart murmur Surgical History: Hysterectomy, Cholecystectomy, Other Surgical History Other: egd, paracentensis, left kidney removal Family History: HTN Social History: ETOH, Lives with family History: Not Applicable Review of System Dictation Constitutional: Denies body weakness and chills Eyes: Negative for injury, pain,redness, and discharge ENT: Negative for injury,pain or swelling Cardiovascular: Negative for chest pain, palpitations, and edema Respiratory: Negative for shortness of breath, cough, and wheezing, Abdomen/GI: Abdominal pain with the nausea and vomiting Back: Negative for injury and pain : Negative for injury, bleeding and discharge MS/Extremity: Negative for injury and deformity Skin: Negative for rash, and discoloration Neuro: Negative for headache, weakness, numbness, tingling, and seizure Psych: Negative for suicide ideation, homicidal ideation, and hallucinations Review of Systems: was completed Initial Vital Sign VS Vital Signs Date Time Temp Pulse Resp B/P (MAP) Pulse Ox O2 Delivery O2 Flow Rate FiO2 07/02/25 19:00 99.1 93 16 188/79 99 Room Air 0 07/02/25 19:17 21 Physical Exam Dictation General: awake, alert, NAD Head/Face: Normocephalic, atraumatic Eyes: PERRL, EOMI, vision at baseline ENT: oral cavity clear, TMs clear, no signs of infection Neck: Trachea midline, supple, no nuchal rigidity Cardiovascular: RRR, normal S1/S2, No MRGs, no JVD Respiratory: CTAB, no respiratory distress, No rales or wheezes Abdomen: Soft, non-tender, distended, normal bowel sounds, no guarding or rebound. Skin: Warm, dry, normal turgor, no rash MS/Extremity: Pulses equal, no cyanosis, neurovascular intact, FROM Neuro: COAx4, GCS 15, strength 5/5, CN 2-12 intact, normal cerebellar exam, normal gait, Psych: Normal behavior, mood, and affect normal Results (Laboratory/Radiology) Laboratory/Radiology Laboratory Tests Test 07/02/25 19:21 07/02/25 19:56 White Blood Count 3.2 K/uL (4.8-10.8) L Red Blood Count 2.84 MIL/uL (4.00-5.50) L Hemoglobin 7.7 g/dL (12.0-16.0) L Hematocrit 24.4 % (36-48) L Mean Corpuscular Volume 85.9 fL (79-99) Mean Corpuscular Hemoglobin 27.1 pg (27.0-33.0) Mean Corpuscular Hemoglobin Concent 31.6 g/dL (32.0-36.0) L Red Cell Distribution Width 14.5 % (11.0-15.5) Platelet Count 83 K/uL (130-400) L Mean Platelet Volume 9.3 fL (7.5-10.5) Immature Granulocyte % (Auto) 0.3 % (0-1) Neutrophils (%) (Auto) 79.7 % (40.0-77.0) H Lymphocytes (%) (Auto) 10.5 % (21.0-51.0) L Monocytes (%) (Auto) 4.1 % (3.0-13.0) Eosinophils (%) (Auto) 5.1 % (0.0-8.0) Basophils (%) (Auto) 0.3 % (0.0-5.0) Neutrophils # (Auto) 2.5 K/uL (1.8-7.7) Lymphocytes # (Auto) 0.3 K/uL (1.0-4.8) L Monocytes # (Auto) 0.1 K/uL (0.1-1.0) Eosinophils # (Auto) 0.16 K/uL (0.00-0.70) Basophils # (Auto) 0.01 K/uL (0.00-0.20) Absolute Immature Granulocyte (auto 0.01 K/uL (0-1) Nucleated Red Blood Cells 0.0 % (0.0-0.19) Sodium Level 138 mmol/L (136-145) Potassium Level 4.1 mmol/L (3.5-5.1) Chloride Level 106 mmol/L (101-111) Carbon Dioxide Level 25 mmol/L (21-32) Blood Urea Nitrogen 22 mg/dL (7-18) H Creatinine 1.3 mg/dL (0.5-1.0) H Glomerular Filtration Rate Calc 45 mL/min (>90) Random Glucose 169 mg/dL (70-105) H Total Calcium 8.1 mg/dL (8.5-10.1) L Total Bilirubin 1.1 mg/dL (0.2-1.0) H Direct Bilirubin 0.4 mg/dL (0.0-0.3) H Aspartate Amino Transf (AST/SGOT) 41 U/L (10-37) H Alanine Aminotransferase (ALT/SGPT) 22 U/L (12-78) Alkaline Phosphatase 209 U/L (50-136) H Ammonia 41 umol/L (11-32) H B-Type Natriuretic Peptide 82 pg/mL (0-100) Total Protein 6.3 g/dL (6.0-8.3) Albumin 2.3 g/dL (3.5-5.0) L Urine Color YELLOW (YELLOW) Urine Appearance CLEAR (CLEAR) Urine pH 6.0 (5.0-8.0) Urine Specific Randolph 1.014 (1.001-1.031) Urine Protein 300 mg/dL (NEGATIVE) H Urine Glucose (UA) 70 mg/dL (NEGATIVE) H Urine Ketones NEGATIVE mg/dL (NEGATIVE) Urine Occult Blood SMALL (NEGATIVE) H Urine Nitrate 2+ (NEGATIVE) H Urine Bilirubin NEGATIVE mg/dL (NEGATIVE) Urine Urobilinogen 0.2 mg/dL (0.2-1.0) Urine Leukocyte Esterase 25 Denny/uL (NEGATIVE) H Urine RBC 11-25 /HPF (0-1) H Urine WBC 26-50 /HPF (0-1) H Urine Squamous Epithelial Cells RARE /HPF (0-2) Urine Bacteria MOD /HPF (None Seen) Urine Other Casts 1 /LPF (None Seen) Labs Reviewed?: Yes ED Course ED Course Orders Procedure Category Date Status Time Cbc With Differential LAB 07/02/25 Complete 19:06 Basic Metabolic Panel LAB 07/02/25 Complete 19:06 Ammonia LAB 07/02/25 Complete 19:06 Hepatic Function Panel LAB 07/02/25 Complete 19:06 Urinalysis Profile LAB 07/02/25 Complete 19:06 Chest 1vw RAD 07/02/25 Taken 19:06 12 Lead Ekg Tracing- EKG 07/02/25 Logged Technical 19:06 B-Type Natriuretic LAB 07/02/25 Complete Peptide 19:06 0.9%Nacl 1000ml (Ns PHA 07/02/25 In Process 1000ml) 19:52 Ondansetron 4mg Inj PHA 07/02/25 Complete (Zofran 4mg Inj) 20:00 Famotidine 20mg Vial PHA 07/02/25 Complete (Pepcid 20mg Vial) 20:00 Culture Urine LENARD 07/02/25 In Process 20:05 Covid Rna Naat LAB 07/02/25 Logged 20:38 Influenza Type A & B, LAB 07/02/25 Logged Rapid 20:38 Morphine 2mg Syg PHA 07/02/25 In Process (Morphine 2mg Syg) 21:30 Current Medications Medications (Trade) Dose Ordered Sig/Shazia Route PRN Reason Start Time Stop Time Status Last Admin Dose Admin Famotidine (Pepcid 20mg Vial) 20 mg ONCE ONCE IV 07/02/25 20:00 07/02/25 20:01 DC 07/02/25 20:34 Morphine Sulfate (morPHINE 2MG SYG) 2 mg ONCE ONCE IVP 07/02/25 21:30 07/02/25 21:31 Ondansetron HCl (zoFRAN 4MG INJ) 4 mg ONCE ONCE IVP 07/02/25 20:00 07/02/25 20:01 DC 07/02/25 20:34 Sodium Chloride 1,000 ml @ 100 mls/hr Q10H STAT IV 07/02/25 19:52 07/03/25 05:51 07/02/25 20:39 Vital Signs Date Time Temp Pulse Resp B/P (MAP) Pulse Ox O2 Delivery O2 Flow Rate FiO2 07/02/25 21:16 99.0 82 20 168/74 99 Room Air* 0 21 07/02/25 19:17 99.1 99 18 178/92 98 Room Air* 0 21 07/02/25 19:00 99.1 93 16 188/79 99 Room Air 0 Medical Decision Making MDM MDM: 65-year-old female coming in with complaints of generalized weakness, nausea and vomiting, abdominal pain, no abdominal distention. Patient has a history of liver cirrhosis, last paracentesis with a 06/14. Denies having any hemoptysis or melena or hematochezia. CBC shows pancytopenia. Chemistry shows mild 10, kidney injury, wheezes consistent with the patient's previous history. Mild elevation of T bili and direct bili, this could be related to patient's kidney disease. Urine shows no evidence of urinary tract infection. On reassessment patient is still having nausea and vomiting, states she still feels weak, states she does not feel comfortable to go home wishes to be admitted in the hospital.Spoke to Roney HOUSTON for hospitalist team. ok to admit. Differential diagnosis: Ascites, anemia, viral syndrome, Rationale: Tests considered and ordered secondary to shared decision making include: labs, ECG and radiology Previous outside records reviewed: Old ER visits. Risk of complication and/or morbidity or mortality of patient management: None Medications-Per medication reconciliation Need for hospitalization: Patient does meet criteria for hospitalization. Need for emergency major/minor surgery: No There are no social concerns with this patient. Prescription drug management Prescriptions will include symptomatic care Patient's prior external medical records from other ER visits were reviewed by me as indicated. Prior testing and results from previous visits were reviewed. Prior tests were taken into account with medical decision making and resource utilization, independent historian/historians were used to obtain complete medical history. I independently interpreted the test that were performed, results were reviewed by me and considered findings on radiology if ordered. Medical management and examination interpretation discussions were had by me with other qualified healthcare professionals as indicated for the patient's care. DX & DISP Disposition: Inpatient Decision to Admit Date: Jul 02, 2025 Decision to Admit Time: 21:19 Departure Impression: Primary Impression: Dehydration Additional Impressions: Ascites, Chronic anemia, Pancytopenia Condition: Stable Referrals: MASHA GRIER MD (PCP) JOSÉ MIGUEL DENNEY CNP Jul 02, 2025 20:42
--- NOTE | 2025-07-02 21:21 | HP ---
History of Present Illness Reason for Visit: abdominal pain Referring MD: Dr. Denny Bowman History of Present Illness Ms. Otero is a 65-year-old female that was seen and examined today. On 07/02/2025 Patient is a good historian of personal health Patient reports that she came to the emergency department with a chief complaint of abdominal pain. Onset was two days ago. Location is all four quadrants. Duration is on and off. Character is described as a dull ache. There was no alleviating factors. There was no aggravating factors. Patient reports associated weakness, nausea, vomiting. Today in the emergency department WBCs 3.2, RBCs 2.5, hemoglobin 7.7, hematocrit 24.1, platelets 83, BUN 22, creatinine 1.3, urinalysis positive for leukocyte esterase and WBCs 20 6-50 per high- powered microscopy field, chest x-ray is unremarkable. Emergency room physician recommended patient be admitted with a diagnosis of liver cirrhosis. Past Medical History Patient History: Alzheimer's disease FATHER, Onset:80 Cardiovascular disease Chronic obstructive lung disease MOTHER, Onset:50's - 60 (copd and asthma) FH: diverticulitis MOTHER FHx: congestive heart failure MOTHER, Onset:30's - 40 Family history: Asthma MOTHER, Onset:Childhood Family history: Cardiovascular disease MOTHER, Onset:15's - 20 Family history: Diabetes mellitus MOTHER, Onset:50's - 60 FATHER, Onset:50's - 60 Family history: Hypertension MOTHER, Onset:40's - 50 FATHER, Onset:40's - 50 BROTHER, Onset:30's - 40 Hypothyroidism MOTHER, Onset:50's - 60 Stroke ADDITIONAL PAST MEDICAL HISTORY: [Liver cirrhosis, anemia, Diabetes mellitius type2, hypertension] SOCIAL HISTORY: [Negative for smoking, or drug use. Patient drinks alcohol once every two or three weeks usually one glass of wine. Patient lives with the father, Rickey Woodard. Patient is typically independent of all her ADLs. Patient denies difficulty paying her bills. SURGICAL HISTORY: [Left nephrectomy, partial hysterectomy, cholecystectomy, left shoulder surgery, bilateral knee surgeries Review of Systems General: No Fever, No Chills, No Night Sweats, No Fatigue, No Malaise, No Appetite, No Other HEENT: No Head Aches, No Visual Changes, No Eye Pain, No Ear Pain, No Dysphasia, No Sinus Congestion, No Post Nasal Drip, No Sore Throat, No Other Pulmonary: No Dyspnea, No Cough, No Pleuritic Chest Pain, No Other Cardiovascular: No: Chest Pain, Palpitations, Orthopnea, Paroxysmal Noc. Dyspnea, Edema, Lt Headedness, Other Gastrointestinal: Nausea, Vomiting, Abdominal Pain; No: Diarrhea, Constipation, Melena, Hematochezia, Other Genitourinary: No Dysuria, No Frequency, No Incontinence, No Hematuria, No Retention, No Other Musculoskeletal: No: other, neck pain, shoulder pain, arm pain, back pain, hand pain, leg pain, foot pain Skin: No Urticaria, No Rash, No Other Neurological: Weakness; No: Numbness, Incoordination, Change in speech, Confusion, Seizures, Other Allergies: Coded Allergies: No Known Drug Allergies (Verified Allergy, 06/25/13) Scheduled Furosemide (Furosemide), 2 TAB PO DAILYLUNCH, (Reported) Insulin Degludec (Tresiba), 10 UNIT SQ BID, (Reported) Pantoprazole Sodium (Protonix), 40 MG PO BID Spironolactone (Spironolactone), 25 MG PO DAILY, (Reported) Scheduled PRN Lactulose (Lactulose), 30 ML PO AD PRN for OTHER [SEE ORDER COMMENTS], (Reported) Ondansetron HCl (Ondansetron HCl), 4 MG PO TID PRN for NAUSEA, (Reported) Discontinued Medications Lactulose (Lactulose), 30 ML PO BID Nitrofurantoin/Nitrofuran Mac (Macrobid), 1 CAP PO BID Exam Vital Signs Vital Signs Date Time Temp Pulse Resp B/P (MAP) Pulse Ox O2 Delivery O2 Flow Rate FiO2 07/02/25 21:16 99.0 82 20 168/74 99 Room Air* 0 21 General Appearance: Alert, Oriented X3, Cooperative, No acute distress HEENT: Atraumatic, EOMI Respiratory: Clear to auscultation, Normal air movement, NL respiratory effort Cardiovascular: Regular rate, Regular rhythm, Normal S1, Normal S2 Abdominal: Normal bowel sounds, Soft, No tenderness Extremities: No edema Skin: No significant lesion Neuro: Normal speech, Strength at 5/5 X4 ext, Sensation intact, Cranial nerves 3-12 NL Psych/Mental Status: Mental status NL, Mood NL, Thoughts/Content NL Assessment/Plan ASSESSMENT: [ Liver cirrhosis, POA Pancytopenia, POA CKD stage IIIB, POA Urinary tract infection, POA] PLAN: [ Admit patient to medical floor as inpatient status. Place patient on telemetry monitoring. Reviewed patient's ammonia level which was unremarkable Lactulose 20 g/30 mL by mouth twice daily Rifaximin 550 mg by mouth twice daily Spironolactone 25 mg by mouth once daily Thiamine 100 mg by mouth once daily Folic acid 1 mg by mouth once daily Monitor intake and output every shift Weight patient daily 1500 mL daily fluid restriction Avoid anticoagulation during this hospitalization Avoid nephrotoxic agents when possible Renally dose all medications when possible Empiric antibiotic therapy with Rocephin Check urine culture, follow up with the results Consult Interventional Radiology for evaluation and recommendations, patient possibly to undergo paracentesis. Keep patient NPO Check preprocedure labs, CBC, BMP, magnesium, phosphorus, PTT, UA, type and screen, EKG, CXR Consider resuming home medications once they have been reconciled. At time of admission home medications has been reconciled. For now: Hydralazine 10 mg IV every 4 hours for systolic blood pressure greater than 160 mmHg GI prophylaxis, Protonix DVT prophylaxis, Simone's and SCDs ADVANCED CARE PLANNING 1. Which of the following were discussed? Hospice Care - Yes Therapeutic options - yes Advance Directives - Yes - patient states she does not have any advance directives in place at this time, however her father can make decisions for her if she becomes unable. Other discussions - patient wishes to remain a full code at this time 2. Discussed with who? Patient 3. Voluntary nature of this service was explained to the patient? Yes 4. Amount of time spent - ___16 minutes____ 5. Reviewed by Physician? (if this service was performed by NPP) Yes This document was generated in part using voice recognition software, occasional wrong word or sound alike substitutions may have occurred due to the inherent limitations of voice recognition software. Read the chart carefully and recognize using context, where the substitutions have occurred. Although every effort was made to edit the content, sales representative door to door and typing errors may occur ATTESTATION BY PHYSICIAN I have seen and examined the patient. I reviewed the documentation, medical decision making, and treatment plan as noted by the mid-level provider above. I agree with the findings and plan of care. ] PINEDA MCCRACKEN CONTINUING EDUCATION DIRECTOR Jul 02, 2025 21:20
--- NOTE | 2025-07-02 21:35 | HMCIMG ---
EXAM: CR Chest, 1 View. CLINICAL HISTORY: sob COMPARISON: None provided. FINDINGS: LUNGS: There is no mass, infiltrate, or acute pulmonary abnormality. PLEURAL SPACES: No pleural effusion or pneumothorax. MEDIASTINUM: The cardiomediastinal silhouette is within normal limits. BONES: No acute osseous abnormality. IMPRESSION: No acute cardiopulmonary pathology is evident. /[place]
[2025-07-02 22:08] LABS: SARS-CoV-2, RNA, NAAT NEGATIVE SARS CoV-2 (NEGATIVE)
[2025-07-02 22:09] LABS: INFLUENZA TYPE A Negative For Type A (NEGATIVE); INFLUENZA TYPE B Negative For Type B (NEGATIVE)
--- NOTE | 2025-07-02 23:42 | NUR ---
EKG ordered 07/02/25 at 1906 was done per ER nurse Navin VAUGHAN.
[2025-07-03] VITALS (18 sets, daily range): BP systolic 139–192; BP diastolic 50–74; PULSE 67–90; RESP 16–20; TEMP 98.3–98.9; O2SAT 93–98
--- NOTE | 2025-07-03 | NUR ---
REPORT GIVEN TO KRISS VAUGHAN
--- NOTE | 2025-07-03 00:59 | NUR ---
Arrival Patient arrived at 0000. AOx4. Patient reports pain 8/10, generalized body aches and headache. Patient ambulated to the restroom, void x1.
--- NOTE | 2025-07-03 01:00 | NUR ---
Home Meds Home medications update and bottles taken to pharmacy.
[2025-07-03 04:26] LABS: IMMATURE GRANULOCYTE ABSOLUTE 0.00 K/uL (0-1); NUCLEATED RED BLOOD CELLS 0.0 % (0.0-0.19); PLATELET COUNT (AUTO) 76 K/uL (130-400); RED BLOOD CELL COUNT(AUTO) 2.53 MIL/uL (4.00-5.50); RED CELL DISTRIBUTION WIDTH 14.4 % (11.0-15.5); WHITE BLOOD COUNT (AUTO) 2.3 K/uL (4.8-10.8)
[2025-07-03 04:35] LABS: INR 1.23 (0.85-1.15)
[2025-07-03 04:40] LABS: CREATININE 1.3 mg/dL (0.5-1.0); GLOMERULAR FILTR. RATE CALC 45.0 mL/min (>90); GLUCOSE,RANDOM 131.0 mg/dL (70-105); PHOSPHORUS 3.0 mg/dL (2.5-4.9); SODIUM SERUM 139.0 mmol/L (136-145); UREA NITROGEN, BLOOD 20.0 mg/dL (7-18)
[2025-07-03 04:54] LABS: EOSINOPHILS % (MANUAL) 3 % (1-6); LYMPHOCYTES % (MANUAL) 6 % (22-44); MAN.DIFF COMMENT-IMPRESSION MANUAL DIFFERENTIAL; MONOCYTES % (MANUAL) 3 % (2-9); PLATELET MORPHOLOGY COMMENT DECREASED; SEGMENTED NEUTROPHILS % 88 % (40-70)
[2025-07-03] MEDS: MAGNESIUM 2GM PREMIX 50ML 50 ML IV PRN (05:13)
--- NOTE | 2025-07-03 07:17 | EKG ---
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: [id number] : 1960 Requested By: JOSÉ MIGUEL DENNEY Order Number: [id number] Reading MD: Fritz Lynn Measurements Intervals Hoffman Rate: 87 P: 43 AK: 161 QRS: -43 QRSD: 116 T: 119 QT: 365 QTc: 440 Interpretive Statements Sinus rhythm Left anterior fascicular block LVH with secondary repolarization abnormality Compared to ECG 05/14/2025 14:17:39 Left anterior fascicular block now present Intraventricular conduction delay no longer present Q waves no longer present Left bundle-branch block no longer present Electronically Signed On 07-03-2025 19:22:11 WELDING TECHNICIAN by Fritz Lynn Please click the below link to view image of tracing.
[2025-07-03] MEDS: SPIRONOLACTONE 25 MG TAB PO SCH (08:42)
[2025-07-03] MEDS: LACTULOSE 20 GM/30 ML UDCUP PO SCH (08:55)
[2025-07-03] MEDS: THIAMINE HCL 100 MG TABLET PO SCH (08:55)
[2025-07-03] MEDS: RIFAXIMIN 550 MG TABLET PO SCH (08:56)
--- NOTE | 2025-07-03 11:08 | NUR ---
U/S GD PARACENTESIS PROCEDURE PERFORMED BY DR NOLAN. PUNCTURE SITE LLQ AND PATIENT TOLERATED PROCEDURE WELL. TOTAL REMOVED 1.7L LITERS OF YELLOW CLOUDY ASCITES FLUID. END OF PROCEDURE AT 1030. CATHETER REMOVED AND DRESSING APPLIED. NO BLEEDING NOTED. REPORT GIVEN TO JAZIEL GREENE AT BEDSIDE BY TIFFANY VAUGHAN. PATIENT TRANSPORTED TO [facility] VIA STRETCHER. AAO X3 WITH NO C/O PAIN.
--- NOTE | 2025-07-03 11:16 | NUR ---
PT RETURNED PT RETURNED VIA STRETCHER FROM PARACENTESIS. 1.7 FLUIDS REMOVED.
--- NOTE | 2025-07-03 12:38 | PN ---
[facility] PROGRESS NOTE Date of Service: Jul 03, 2025 Time of Service: 12:33 SUBJECTIVE: 07/03 Hemoglobin dropped overnight. We will transfuse1 unit PRBC. Creatinine remains stable at 1.3 REVIEW OF SYSTEMS CONSTITUTIONAL: Denies fevers, chills, or night sweats. No unintentional weight loss reported. NEUROLOGICAL: Denies headache, amaurosis fugax, motor weakness, sensory deficit, vertigo/spinning sensation, gait abnormalities, or tremors. ENT: No hearing loss, otalgia, otorrhea, rhinitis, rhinorrhea, hoarseness, or sore throat. CARDIOVASCULAR: Denies any exertional angina, dyspnea on exertion, orthopnea, paroxysmal nocturnal dyspnea, palpitations, life-threatening arrhythmias, claudication. PULMONARY: Denies any shortness of breath, cough, phlegm/sputum, hemoptysis, pleuritic chest pain. SLEEP: Denies morning headaches, daytime somnolence or napping. Denies difficulty falling asleep, staying asleep, waking from sleep. Denies knowledge of snoring. GASTROINTESTINAL: Denies any type of dysphagia to either liquids or solids. Denies nausea, vomiting, pyrosis, early satiety, abdominal pain, diarrhea, constipation, or changes in stool consistency or caliber. Denies coffee-ground emesis, hematemesis, hematochezia, or melanotic stools. GENITOURINARY: Denies frequency, urgency, nocturia, hematuria or incontinence (Storage/Irritative symptoms.) Low urinary stream, straining to void, urinary intermittency or hesitancy, splitting of the voiding stream, terminal dribbling. ENDOCRINOLOGIC: Denies polyuria, polydipsia, polyphagia or heat/cold intolerances. HEMATOLOGIC: Denies thrombophilia/previous clots, or coagulopathy/bleeding disorders. ONCOLOGIC: Denies personal history of malignancy. DERMATOLOGIC: Denies rashes or pruritus. PSYCHIATRIC: Denies any suicidal or homicidal ideation. Denies hallucinations. PHYSICAL EXAM GENERAL APPEARANCE: The patient is awake, alert, and oriented, in no acute cardiopulmonary distress. NEUROLOGICAL: Cranial nerves II-XII grossly intact. Motor is 5/5 in bilateral upper and lower extremities proximal to distal. No sensory deficits. HEENT: Face is symmetric. Pupils are equal and reactive. Extraocular movements are intact. NECK: Supple. No JVD. No thyromegaly. No submental, submandibular, pre- /postauricular, occipital or supraclavicular lymphadenopathy. CHEST: Normal chest expansion. No Telemetry. LUNGS: Absence of any rales, rhonchi or any wheezing. CARDIOVASCULAR: Regular. S1 and S2 normal. No appreciable rubs, murmurs or gallops. ABDOMEN: Soft, nontender, and nondistended. There is no rebound, voluntary guarding, or rigidity. : Deferred. No Mcmillan. EXTREMITIES: Non-edematous and not cyanotic. No clubbing. Good capillary refill. SKIN: No skin breakdown. Vital Signs (last 8hr) Date Time Temp Pulse Resp B/P (MAP) Pulse Ox O2 Delivery O2 Flow Rate FiO2 07/03/25 08:05 93 Room Air* 0 21 07/03/25 08:00 98.8 85 18 142/62 93 Room Air LABS: Laboratory: Test 07/03/25 11:41 07/03/25 08:26 07/03/25 03:46 07/02/25 21:25 Range/Units Whole Blood Glucose 159 H 70-110 MG/DL Hemoglobin 6.8 *L 12.0-16.0 g/dL White Blood Count 2.3 #L 4.8-10.8 K/uL Red Blood Count 2.53 L 4.00-5.50 MIL/uL Hematocrit 21.2 L 36-48 % Mean Corpuscular Volume 83.8 79-99 fL Mean Corpuscular Hemoglobin 27.3 27.0-33.0 pg Mean Corpuscular Hemoglobin Concent 32.5 32.0-36.0 g/dL Red Cell Distribution Width 14.4 11.0-15.5 % Platelet Count 76 L 130-400 K/uL Mean Platelet Volume 9.8 7.5-10.5 fL Immature Granulocyte % (Auto) 0.0 0-1 % Neutrophils (%) (Auto) 72.1 40.0-77.0 % Lymphocytes (%) (Auto) 17.6 L 21.0-51.0 % Monocytes (%) (Auto) 5.6 3.0-13.0 % Eosinophils (%) (Auto) 4.3 0.0-8.0 % Basophils (%) (Auto) 0.4 0.0-5.0 % Neutrophils # (Auto) 1.7 L 1.8-7.7 K/uL Lymphocytes # (Auto) 0.4 L 1.0-4.8 K/uL Monocytes # (Auto) 0.1 0.1-1.0 K/uL Eosinophils # (Auto) 0.10 0.00-0.70 K/uL Basophils # (Auto) 0.01 0.00-0.20 K/uL Absolute Immature Granulocyte (auto 0.00 0-1 K/uL Segmented Neutrophils % 88 H 40-70 % Lymphocytes % (Manual) 6 L 22-44 % Monocytes % (Manual) 3 2-9 % Eosinophils % (Manual) 3 1-6 % Nucleated Red Blood Cells 0.0 0.0-0.19 % Differential Comment MANUAL DIFFERENTIAL White Cell Morphology Comment Platelet Morphology Comment DECREASED Red Blood Cell Morphology HYPOCHROM CELLS 1+ Prothrombin Time 12.8 H 9.6-11.6 SEC Prothromb Time International Ratio 1.23 H 0.85-1.15 Activated Partial Thromboplast Time 24.8 L 26.3-35.5 SEC Sodium Level 139 136-145 mmol/L Potassium Level 3.8 3.5-5.1 mmol/L Chloride Level 109 101-111 mmol/L Carbon Dioxide Level 22 21-32 mmol/L Blood Urea Nitrogen 20 H 7-18 mg/dL Creatinine 1.3 H 0.5-1.0 mg/dL Glomerular Filtration Rate Calc 45 >90 mL/min Random Glucose 131 H 70-105 mg/dL Total Calcium 7.5 L 8.5-10.1 mg/dL Phosphorus Level 3.0 2.5-4.9 mg/dL Magnesium Level 1.80 1.80-2.40 mg/dL Influenza Type A Antigen Negative For Type A NEGATIVE Influenza Type B Antigen Negative For Type B NEGATIVE SARS-CoV-2, RNA, NAAT NEGATIVE SARS CoV-2 NEGATIVE Test 07/02/25 19:56 07/02/25 19:21 Range/Units Urine Color YELLOW YELLOW Urine Appearance CLEAR CLEAR Urine pH 6.0 5.0-8.0 Urine Specific Landing 1.014 1.001-1.031 Urine Protein 300 H NEGATIVE mg/dL Urine Glucose (UA) 70 H NEGATIVE mg/dL Urine Ketones NEGATIVE NEGATIVE mg/dL Urine Occult Blood SMALL H NEGATIVE Urine Nitrate 2+ H NEGATIVE Urine Bilirubin NEGATIVE NEGATIVE mg/dL Urine Urobilinogen 0.2 0.2-1.0 mg/dL Urine Leukocyte Esterase 25 H NEGATIVE Denny/uL Urine RBC 11-25 H 0-1 /HPF Urine WBC 26-50 H 0-1 /HPF Urine Squamous Epithelial Cells RARE 0-2 /HPF Urine Bacteria MOD None Seen /HPF Urine Other Casts 1 None Seen /LPF Hemoglobin A1c 6.1 H 4.0-6.0 % Estimated Average Glucose (eAG) 128 H 70-126 mg/dL Total Bilirubin 1.1 H 0.2-1.0 mg/dL Direct Bilirubin 0.4 H 0.0-0.3 mg/dL Aspartate Amino Transf (AST/SGOT) 41 H 10-37 U/L Alanine Aminotransferase (ALT/SGPT) 22 12-78 U/L Alkaline Phosphatase 209 H 50-136 U/L Ammonia 41 H 11-32 umol/L B-Type Natriuretic Peptide 82 0-100 pg/mL Total Protein 6.3 6.0-8.3 g/dL Albumin 2.3 L 3.5-5.0 g/dL Current Medications Medications (Trade) Dose Ordered Sig/Shazia Route PRN Reason Start Time Stop Time Status Last Admin Dose Admin Acetaminophen (TYLenol 325MG TAB) 650 mg Q6H PRN PO TEMPERATURE GREATER THAN 101.5 07/02/25 23:00 08/01/25 22:59 Ceftriaxone Sodium (ROCEphine 1G INJ) 1 gm Q24H IVPB 07/02/25 23:00 07/12/25 22:59 07/02/25 23:45 1 GM Folic Acid (FOLic ACID 1 MG TABLET) 1 mg DAILY PO 07/03/25 09:00 08/02/25 08:59 Hydralazine HCl (APRESOLine 20MG INJ) 10 mg Q6H PRN IV For:SBP above 160;DBP above 90 07/02/25 23:00 08/01/25 22:59 Hydromorphone HCl (DiLAUDid 1MG INJ) 0.25 mg Q4H PRN IVP SEVERE PAIN (7-10) 07/02/25 23:00 07/07/25 22:59 07/03/25 08:47 0.25 MG Insulin Human Regular (humuLIN R 100 UNIT/ML 3ML) INSULIN SLIDING SCAL... ACHS SQ 07/03/25 07:30 08/02/25 07:29 Lactulose (Constulose 20gm/ 30ml Udcup) 20 gm BID PO 07/03/25 09:00 08/02/25 08:59 Magnesium Sulfate 50 ml @ 0 mls/hr PROTOCOL PRN IV MAGNESIUM PROTOCOL 07/03/25 05:00 08/02/25 04:59 07/03/25 05:13 25 MLS/HR Ondansetron HCl (zoFRAN 4MG INJ) 4 mg Q6H PRN IV NAUSEA/VOMITING 07/02/25 23:00 08/01/25 22:59 07/03/25 11:01 4 MG Pantoprazole Sodium (PROTonix 40MG TAB) 40 mg DAILY PO 07/03/25 09:00 08/02/25 08:59 Rifaximin (Xifaxan) 550 mg BID PO 07/03/25 09:00 08/02/25 08:59 Sodium Chloride 1,000 ml @ 100 mls/hr Q10H STAT IV 07/02/25 19:52 07/03/25 05:51 DC 07/02/25 20:39 100 MLS/HR Spironolactone (Aldactone 25mg) 25 mg DAILY PO 07/03/25 09:00 08/02/25 08:59 07/03/25 08:42 25 MG Thiamine HCl (Vitamin B-1) 100 mg DAILY PO 07/03/25 09:00 08/02/25 08:59 DIAGNOSTICS / RADIOLOGY: [ ] ASSESSMENT: Liver cirrhosis, POA Pancytopenia, POA Precipitous drop in hemoglobin, POA CKD stage IIIB, POA Urinary tract infection, POA PLAN: Continue ceftriaxone Trend WBCs Follow-up cultures Continue Tylenol, IV Dilaudid O2 nasal cannula as needed Monitor blood pressure Continue lactulose 20 mg b.i.d. Continue rifaximin Renal non hemodialysis diet We will switch to pantoprazole b.i.d. We will consider starting octreotide No need for IV fluids Continue spironolactone Trend a.m. BMP Replete electrolytes as necessary Transfuse 1 unit PRBC DVT prophylaxis with SCDs only due to concerns for bleeding Trend a.m. CBC Full code Case was discussed with patient's nurse at bedside Attention time greater than 30 minutes INDIA SEGURA IV, MD Jul 03, 2025 12:37
--- NOTE | 2025-07-03 13:36 | HMCIMG ---
US ABDOMINAL PARACENTESIS IR REASON: please evaluate for paracentesis This procedure was performed by kylah Sena Obi, M.D. with Dr. Neal TECHNIQUE: Paracentesis was performed with ultrasound guidance. The puncture site was selected in the Left Lower quadrant and overlying skin prepped and draped in a sterile fashion. 1% Xylocaine infiltration was performed. Catheter was placed in the fluid using trocar technique. 2.1 were removed. Fluid sample was submitted for laboratory evaluation. The patient showed no evidence of complication during the procedure. Patient tolerated procedure. No albumin given. IMPRESSION: 1. Ultrasound-guided paracentesis.
--- NOTE | 2025-07-03 15:32 | NUR ---
DCP:HOME Pt currently lives at home with her father who has dementia. Pt denies having any DME, home health, or provider services. Pt states that she is mostly able to complete ADLs independently. There are times when she gets out of the hospital that she feels very weak and needs a little of assistance with meals. SW provided pt with the Meals on Wheels number so she can potentially set up delivery for when she discharges. PCP is Dr Joao Frances and uses [facility] for any RX needs. At DC pt will want to go home and family can assist with transportation.
[2025-07-03] MEDS ORDERED: NON-FORMULARY MEDICATION 1 EACH (Lactulose 30 ML) PO PRN (18:00)
[2025-07-03] MEDS: amLODIPine 2.5 MG TAB PO SCH (21:10)
[2025-07-04] VITALS (8 sets, daily range): BP systolic 134–159; BP diastolic 59–70; PULSE 68–71; RESP 16–18; TEMP 98.2–98.7; O2SAT 97–99
[2025-07-04 04:20] LABS: NUCLEATED RED BLOOD CELLS 0.0 % (0.0-0.19); PLATELET COUNT (AUTO) 69 K/uL (130-400); RED BLOOD CELL COUNT(AUTO) 2.78 MIL/uL (4.00-5.50); RED CELL DISTRIBUTION WIDTH 14.2 % (11.0-15.5); WHITE BLOOD COUNT (AUTO) 2.5 K/uL (4.8-10.8)
[2025-07-04 04:30] LABS: CREATININE 1.3 mg/dL (0.5-1.0); GLOMERULAR FILTR. RATE CALC 45.0 mL/min (>90); GLUCOSE,RANDOM 162.0 mg/dL (70-105); SODIUM SERUM 136.0 mmol/L (136-145); UREA NITROGEN, BLOOD 19.0 mg/dL (7-18)
[2025-07-04 05:06] LABS: BASOPHILS % (MANUAL) 1 % (0-2); EOSINOPHILS % (MANUAL) 2 % (1-6); LYMPHOCYTES % (MANUAL) 16 % (22-44); MONOCYTES % (MANUAL) 8 % (2-9); SEGMENTED NEUTROPHILS % 73 % (40-70)
[2025-07-04 05:07] LABS: MAN.DIFF COMMENT-IMPRESSION MANUAL DIFFERENTIAL; PLATELET MORPHOLOGY COMMENT DECREASED
--- NOTE | 2025-07-04 11:02 | DS ---
Discharge Summary Hospital Course Summary: Presented with a tense ascites and abdominal pain. The following morning patient was found to have low hemoglobin received1 unit PRBC transfusion. She underwent paracentesis. She was kept overnight to ensure hemoglobin remained stable. Hemoglobin continues to up trend. We will discharge to follow up with PCP. Assessment/Plan: ASSESSMENT: Liver cirrhosis, POA Pancytopenia, POA Precipitous drop in hemoglobin, POA CKD stage IIIB, POA Urinary tract infection, POA PLAN: Continue ceftriaxone Trend WBCs Follow-up cultures Continue Tylenol, IV Dilaudid O2 nasal cannula as needed Monitor blood pressure Continue lactulose 20 mg b.i.d. Continue rifaximin Renal non hemodialysis diet We will switch to pantoprazole b.i.d. We will consider starting octreotide No need for IV fluids Continue spironolactone Trend a.m. BMP Replete electrolytes as necessary Transfuse 1 unit PRBC DVT prophylaxis with SCDs only due to concerns for bleeding Trend a.m. CBC Full code Case was discussed with patient's nurse at bedside Attention time greater than 30 minutes Home Medications: Active Scripts Pantoprazole Sodium (Protonix) 40 Mg Tablet.dr, 40 MG PO BID for 60 Days, #120 TAB Prov:LAURA FOX PAC 12/10/24 Reported Medications Amlodipine Besylate (Amlodipine Besylate) 2.5 Mg Tablet, 2.5 MG PO HS, TAB 07/03/25 Lactulose (Lactulose) 10 Gram/15 Ml Solution, 30 ML PO AD PRN for OTHER [SEE ORDER COMMENTS], #900 ML 0 Refills AMMONIA 07/03/25 Ondansetron HCl (Ondansetron HCl) 4 Mg Tablet, 4 MG PO TID PRN for NAUSEA, TAB 07/03/25 Furosemide (Furosemide) 20 Mg Tablet, 2 TAB PO HS for 30 Days, #30 TAB 0 Refills 05/16/25 Spironolactone (Spironolactone) 25 Mg Tablet, 25 MG PO DAILY, TAB 05/16/25 Insulin Degludec (Tresiba) 100 Unit/Ml Vial, 10 UNIT SQ BID, VIAL 12/08/24 Discontinued Scripts Nitrofurantoin/Nitrofuran Mac (Macrobid) 100 Mg Cap, 1 CAP PO BID for 7 Days, #14 CAP 0 Refills Prov:JOSÉ MIGUEL DENNEY VENDING MACHINE OPERATOR 05/31/25 Lactulose (Lactulose) 10 Gram/15 Ml Solution, 30 ML PO BID for ammonia, #500 ML 0 Refills Prov:AMARA BURNS PAC 11/06/24 Time spent arranging discharge: 31-60 minutes INDIA SEGURA IV, MD Jul 04, 2025 11:02
[2025-07-04] MEDS: ZOSYN 3.375GM +NS 50ML IV SCH (13:56)
[2025-07-05] VITALS: BP 151/59; PULSE 73; RESP 17; TEMP 98.6
--- NOTE | 2025-07-05 01:28 | CONS ---
INFECTIOUS DISEASE CONSULTATION DATE OF SERVICE: 07/04/2025. REQUESTING PHYSICIAN: Dr. Johnson. REASON FOR CONSULTATION: UTI. HISTORY OF PRESENT ILLNESS: A 65-year-old female who presents with abdominal pain localized to the lower quadrants started 2 days prior to presentation. The patient has no cough and no shortness of breath. Urinalysis was positive and urine culture came back with E. coli. PAST MEDICAL HISTORY: * Obesity. * UTI. * Diabetes mellitus. * Hypertension. * Liver cirrhosis. PAST SURGICAL HISTORY: * Left nephrectomy. * Partial hysterectomy. * Cholecystectomy. * Bilateral knee surgery. ALLERGIES: No known drug allergies. CURRENT MEDICATIONS: * Lactulose. * Ceftriaxone. * ____. SOCIAL HISTORY: No alcohol or illicit drug use. FAMILY HISTORY: Positive for diabetes mellitus. REVIEW OF SYSTEMS: Greater than 10 system were reviewed. Negative aside from as stated above. CONSTITUTIONAL: No fevers or chills. EYES: No eye pain. No photophobia or diplopia. HENT: No sore throat. No rhinorrhea or earache. NECK: No neck pain or neck swelling. RESPIRATORY: No cough. No hemoptysis or pleuritic pain. CARDIOVASCULAR: No chest pain. No palpitation or orthopnea. GASTROINTESTINAL: Denies nausea and vomiting. Positive for abdominal pain. GENITOURINARY: No hematuria. Positive for suprapubic pain and dysuria. CENTRAL NERVOUS SYSTEM: No headache, dyspnea, or slurred speech. PSYCHIATRY: No depression and no suicidal ideation. MUSCULOSKELETAL: She has some musculoskeletal as well. PHYSICAL EXAMINATION: GENERAL: Elderly female. VITAL SIGNS: Temperature 98.2, pulse 72, respiratory rate 18, ____ LUNGS: No rales, no rhonchi. CARDIOVASCULAR: S1 and S2. Regular. No murmur heard. ABDOMEN: Soft, obese, nontender. Bowel sound is present. CENTRAL NERVOUS SYSTEM: Awake, alert, and oriented x 3. No focal deficits. SKIN: No rashes. No ____. No peripheral lymphadenopathy. BACK: No deformity. MUSCULOSKELETAL: No joint swelling, erythema or tenderness. LABORATORY DATA: Potassium 3.5, BUN 19, creatinine 1.3, WBC 2.5, hemoglobin 7.7, platelets 69. Urine culture growing E. coli ____ ASSESSMENT: A 65-year-old female with abdominal pain symptoms. * Possible SBP. * Diabetes mellitus. * Rhabdomyolysis. * Thrombocytopenia. * Liver cirrhosis. PLAN: * Discontinue ceftriaxone. * Start the patient on Zosyn * Continue lactulose. * Continue antiemetics. * Continue anti diabetic medications. * Continue nutritional support. * Follow-up cultures. * The patient will be followed closely. Thank you for allowing me to participate in the care of this patient. TID: [id number] RECEIPT: [id number] [facility]
[2025-07-05 03:56] LABS: NUCLEATED RED BLOOD CELLS 0.0 % (0.0-0.19); PLATELET COUNT (AUTO) 99.0 K/uL (130-400); RED BLOOD CELL COUNT(AUTO) 3.15 MIL/uL (4.00-5.50); RED CELL DISTRIBUTION WIDTH 14.5 % (11.0-15.5); WHITE BLOOD COUNT (AUTO) 3.6 K/uL (4.8-10.8)
[2025-07-05 04:10] LABS: CREATININE 1.5 mg/dL (0.5-1.0); GLOMERULAR FILTR. RATE CALC 38.0 mL/min (>90); GLUCOSE,RANDOM 150.0 mg/dL (70-105); SODIUM SERUM 137.0 mmol/L (136-145); UREA NITROGEN, BLOOD 17.0 mg/dL (7-18)
[2025-07-05 04:41] VITALS: BP 152/64; PULSE 75; RESP 20; TEMP 98.7
[2025-07-05 08:00] VITALS: BP 131/59; PULSE 73; RESP 18; TEMP 98.9; O2SAT 95
[2025-07-05 12:00] VITALS: BP 127/57; PULSE 67; RESP 18; TEMP 97.9
--- NOTE | 2025-07-05 15:33 | PN ---
[facility] PROGRESS NOTE Date of Service: Jul 05, 2025 Time of Service: 15:31 SUBJECTIVE: Patient continues with IV antibiotics, she is concerned about her positive occult blood and anemia. We will be consulting Gastroenterology. Patient has been accepted to [facility] to continue with her IV antibiotics but we need to consult GI for GI bleed. REVIEW OF SYSTEMS CONSTITUTIONAL: Denies fevers, chills, or night sweats. No unintentional weight loss reported. NEUROLOGICAL: Denies headache, amaurosis fugax, motor weakness, sensory deficit, vertigo/spinning sensation, gait abnormalities, or tremors. ENT: No hearing loss, otalgia, otorrhea, rhinitis, rhinorrhea, hoarseness, or sore throat. CARDIOVASCULAR: Denies any exertional angina, dyspnea on exertion, orthopnea, p aroxysmal nocturnal dyspnea, palpitations, life-threatening arrhythmias, claudication. PULMONARY: Denies any shortness of breath, cough, phlegm/sputum, hemoptysis, pleuritic chest pain. SLEEP: Denies morning headaches, daytime somnolence or napping. Denies difficulty falling asleep, staying asleep, waking from sleep. Denies knowledge of snoring. GASTROINTESTINAL: Denies any type of dysphagia to either liquids or solids. Denies nausea, vomiting, pyrosis, early satiety, abdominal pain, diarrhea, constipation, or changes in stool consistency or caliber. Denies coffee-ground emesis, hematemesis, hematochezia, or melanotic stools. GENITOURINARY: Denies frequency, urgency, nocturia, hematuria or incontinence (Storage/Irritative symptoms.) Low urinary stream, straining to void, urinary intermittency or hesitancy, splitting of the voiding stream, terminal dribbling. ENDOCRINOLOGIC: Denies polyuria, polydipsia, polyphagia or heat/cold intolerances. HEMATOLOGIC: Denies thrombophilia/previous clots, or coagulopathy/bleeding disorders. ONCOLOGIC: Denies personal history of malignancy. DERMATOLOGIC: Denies rashes or pruritus. PSYCHIATRIC: Denies any suicidal or homicidal ideation. Denies hallucinations. PHYSICAL EXAM GENERAL APPEARANCE: The patient is awake, alert, and oriented, in no acute cardiopulmonary distress. NEUROLOGICAL: Cranial nerves II-XII grossly intact. Motor is 5/5 in bilateral upper and lower extremities proximal to distal. No sensory deficits. HEENT: Face is symmetric. Pupils are equal and reactive. Extraocular movements are intact. NECK: Supple. No JVD. No thyromegaly. No submental, submandibular, pre- /postauricular, occipital or supraclavicular lymphadenopathy. CHEST: Normal chest expansion. No Telemetry. LUNGS: Absence of any rales, rhonchi or any wheezing. CARDIOVASCULAR: Regular. S1 and S2 normal. No appreciable rubs, murmurs or gallops. ABDOMEN: Soft, nontender, and nondistended. There is no rebound, voluntary guarding, or rigidity. : Deferred. No Mcmillan. EXTREMITIES: Non-edematous and not cyanotic. No clubbing. Good capillary refill. SKIN: No skin breakdown. Vital Signs (last 8hr) Date Time Temp Pulse Resp B/P (MAP) Pulse Ox O2 Delivery O2 Flow Rate FiO2 07/05/25 12:00 97.9 67 18 127/57 96 Room Air 07/05/25 08:00 99.0 73 18 131/59 95 Room Air 07/05/25 08:00 95 Room Air* 0 21 LABS: Laboratory: Test 07/05/25 10:57 07/05/25 03:20 07/04/25 14:18 07/04/25 04:08 Range/Units Whole Blood Glucose 172 H 70-110 MG/DL White Blood Count 3.6 #L 4.8-10.8 K/uL Red Blood Count 3.15 L 4.00-5.50 MIL/uL Hemoglobin 8.7 L 12.0-16.0 g/dL Hematocrit 26.2 L 36-48 % Mean Corpuscular Volume 83.2 79-99 fL Mean Corpuscular Hemoglobin 27.6 27.0-33.0 pg Mean Corpuscular Hemoglobin Concent 33.2 32.0-36.0 g/dL Red Cell Distribution Width 14.5 11.0-15.5 % Platelet Count 99 #L 130-400 K/uL Mean Platelet Volume 9.8 7.5-10.5 fL Nucleated Red Blood Cells 0.0 0.0-0.19 % Sodium Level 137 136-145 mmol/L Potassium Level 3.9 3.5-5.1 mmol/L Chloride Level 108 101-111 mmol/L Carbon Dioxide Level 22 21-32 mmol/L Blood Urea Nitrogen 17 7-18 mg/dL Creatinine 1.5 H 0.5-1.0 mg/dL Glomerular Filtration Rate Calc 38 >90 mL/min Random Glucose 150 H 70-105 mg/dL Total Calcium 7.8 L 8.5-10.1 mg/dL Stool Occult Blood POSITIVE H NEGATIVE Segmented Neutrophils % 73 H 40-70 % Lymphocytes % (Manual) 16 L 22-44 % Monocytes % (Manual) 8 2-9 % Eosinophils % (Manual) 2 1-6 % Basophils % (Manual) 1 0-2 % Differential Comment MANUAL DIFFERENTIAL White Cell Morphology Comment Platelet Morphology Comment DECREASED Red Blood Cell Morphology HYPOCHROM CELLS 1+ Current Medications Medications (Trade) Dose Ordered Sig/Shazia Route PRN Reason Start Time Stop Time Status Last Admin Dose Admin Acetaminophen (TYLenol 325MG TAB) 650 mg Q6H PRN PO TEMPERATURE GREATER THAN 101.5 07/02/25 23:00 08/01/25 22:59 Acetaminophen (TYLenol 325MG TAB) 650 mg Q6H PRN PO MILD PAIN (1-3) 07/03/25 14:30 08/02/25 14:29 07/05/25 08:10 650 MG Amlodipine Besylate (NorvASC 2.5MG TAB) 2.5 mg HS PO 07/03/25 21:00 08/02/25 20:59 07/04/25 20:15 2.5 MG Ceftriaxone Sodium (ROCEphine 1G INJ) 1 gm Q24H IVPB 07/02/25 23:00 07/04/25 13:00 DC 07/03/25 23:04 1 GM Folic Acid (FOLic ACID 1 MG TABLET) 1 mg DAILY PO 07/03/25 09:00 08/02/25 08:59 07/05/25 08:04 1 MG Furosemide (LASix 20MG TAB) 20 mg HS PO 07/03/25 21:00 08/02/25 20:59 07/04/25 20:15 20 MG Hydralazine HCl (APRESOLine 20MG INJ) 10 mg Q6H PRN IV For:SBP above 160;DBP above 90 07/02/25 23:00 08/01/25 22:59 Hydromorphone HCl (DiLAUDid 1MG INJ) 0.25 mg Q4H PRN IVP SEVERE PAIN (7-10) 07/02/25 23:00 11/22/25 22:59 07/04/25 20:18 0.25 MG Insulin Human Regular (humuLIN R 100 UNIT/ML 3ML) INSULIN SLIDING SCAL... ACHS SQ 07/03/25 07:30 08/02/25 07:29 07/04/25 21:49 3 UNIT Lactulose (Constulose 20gm/ 30ml Udcup) 20 gm BID PO 07/03/25 09:00 08/02/25 08:59 Magnesium Sulfate 50 ml @ 0 mls/hr PROTOCOL PRN IV MAGNESIUM PROTOCOL 07/03/25 05:00 08/02/25 04:59 07/03/25 05:13 25 MLS/HR Miscellaneous Medication (Lactulose ) 30 ml AD PRN PO OTHER [SEE ORDER COMMENTS] 07/03/25 18:00 07/03/25 18:09 DC Ondansetron HCl (zoFRAN 4MG TABLET) 4 mg TID PRN PO NAUSEA 07/03/25 18:00 08/02/25 17:59 Ondansetron HCl (zoFRAN 4MG INJ) 4 mg Q6H PRN IV NAUSEA/VOMITING IF NPO 07/02/25 23:00 08/01/25 22:59 07/03/25 11:01 4 MG Pantoprazole Sodium (PROTonix 40MG INJ) 40 mg BID IVP 07/03/25 21:00 08/02/25 20:59 07/05/25 08:04 40 MG Pantoprazole Sodium (PROTonix 40MG TAB) 40 mg DAILY PO 07/03/25 09:00 07/03/25 17:47 DC Piperacillin Sod/ Tazobactam Sod (Zosyn 3.375gm+NS 50ml) 3.375 gm Q8H IV 07/04/25 13:00 07/14/25 12:59 07/05/25 12:59 3.375 GM Rifaximin (Xifaxan) 550 mg BID PO 07/03/25 09:00 08/02/25 08:59 07/05/25 08:04 550 MG Sodium Chloride 1,000 ml @ 100 mls/hr Q10H STAT IV 07/02/25 19:52 07/03/25 05:51 DC 07/02/25 20:39 100 MLS/HR Spironolactone (Aldactone 25mg) 25 mg DAILY PO 07/03/25 09:00 08/02/25 08:59 07/05/25 08:04 25 MG Thiamine HCl (Vitamin B-1) 100 mg DAILY PO 07/03/25 09:00 08/02/25 08:59 07/05/25 08:04 100 MG DIAGNOSTICS / RADIOLOGY: [ ] ASSESSMENT: Acute lower GI bleed Liver cirrhosis, POA Pancytopenia, POA Precipitous drop in hemoglobin, POA CKD stage IIIB, POA Urinary tract infection, POA PLAN: We 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 Continue rifaximin Renal non hemodialysis diet We will switch to pantoprazole b.i.d. We will consider starting octreotide No need for IV fluids Continue spironolactone Trend a.m. BMP Replete electrolytes as necessary Transfuse 1 unit PRBC DVT prophylaxis with SCDs only due to concerns for bleeding Trend a.m. CBC Full code Case was discussed with patient's nurse at bedside Attention time greater than 30 minutes ATTESTATION BY PHYSICIAN I have seen and examined the patient. I reviewed the documentation, medical decision making, and treatment plan as noted by the mid-level provider above. I agree with the findings and plan of care. ZOË MORGAN MD, JANICE B AGACNP Jul 05, 2025 15:33
[2025-07-05 16:00] VITALS: BP 148/59; PULSE 69; RESP 18; TEMP 98.8
--- NOTE | 2025-07-05 16:00 | NUR ---
ACCEPTED AT [facility], FIRST APPOINTMENT 07/05 AT 11 AM. WAS GOING TO GIVE TO PATIENT BUT WAS TOLD BY PRIMARY NURSE THAT THE FOBT WAS POSITIVE BUT THAT WAS NOT YET ADDRESSES. DECIDED TO PUT NOTE IN CHART SO IT CAN BE GIVEN AT DAY OF DISCHARGE. NURSING COMMUNICATION ENTERED
--- NOTE | 2025-07-05 16:29 | PN ---
INFECTIOUS DISEASE PROGRESS NOTE Date of Service: Jul 05, 2025 SUBJECTIVE: This is a 65-year-old female patient admitted for abdominal pain. A urinalysis was positive and the urine culture came back positive for ESBL E coli and the reason for ID consult. Patient has remained afebrile, temperature is 99.0. The hemoglobin has remained stable after the 1 unit transfused on 07/03/2025. No dyspnea. Continues on Zosyn IV. Patient has been referred to [facility] for outpatient IV antibiotics with Zosyn for 10 days. Pending insurance approval. PHYSICAL EXAM EYES: Anicteric. Pupils equal and reactive. HENT: No oral thrush seen, moist Oral mucosa. NECK: Supple, no JVD or thyromegaly. LUNGS: Good air entry. No rales, no rhonchi. CARDIOVASCULAR: S1, S2 regular. No murmur heard. ABDOMEN: Soft, non tender, bowel sounds present. CENTRAL NERVOUS SYSTEM: Awake, alert, oriented x 3. SKIN: No rashes, no swelling. LYMPHATICS: No peripheral lymphadenopathy. MUSCULOSKELETAL: No joint swelling, erythema or tenderness. EXTREMITIES: No cyanosis or clubbing. BACK: No deformity, no pressure ulcer. GENITOURINARY: No dysuria or hematuria. Vital Sign (Last 12 Hours) 07/05/25 07/05/25 07/05/25 07/05/25 04:41 08:00 08:00 12:00 Temp 98.8 99.0 97.9 Pulse 75 73 67 Resp B/P (MAP) 152/64 131/59 127/57 Pulse Ox 98 95 95 96 O2 Delivery Room Air Room Air* Room Air Room Air O2 Flow Rate 0 FiO2 21 Intake & Output (last 24hrs) 07/04/25 07/04/25 07/05/25 15:00 23:00 07:00 Intake Total 1200 ml Output Total 1200 ml Balance 0 ml LABS: Laboratory: Test 07/05/25 15:53 07/05/25 03:20 07/04/25 14:18 07/04/25 04:08 Range/Units Whole Blood Glucose 202 H 70-110 MG/DL White Blood Count 3.6 #L 4.8-10.8 K/uL Red Blood Count 3.15 L 4.00-5.50 MIL/uL Hemoglobin 8.7 L 12.0-16.0 g/dL Hematocrit 26.2 L 36-48 % Mean Corpuscular Volume 83.2 79-99 fL Mean Corpuscular Hemoglobin 27.6 27.0-33.0 pg Mean Corpuscular Hemoglobin Concent 33.2 32.0-36.0 g/dL Red Cell Distribution Width 14.5 11.0-15.5 % Platelet Count 99 #L 130-400 K/uL Mean Platelet Volume 9.8 7.5-10.5 fL Nucleated Red Blood Cells 0.0 0.0-0.19 % Sodium Level 137 136-145 mmol/L Potassium Level 3.9 3.5-5.1 mmol/L Chloride Level 108 101-111 mmol/L Carbon Dioxide Level 22 21-32 mmol/L Blood Urea Nitrogen 17 7-18 mg/dL Creatinine 1.5 H 0.5-1.0 mg/dL Glomerular Filtration Rate Calc 38 >90 mL/min Random Glucose 150 H 70-105 mg/dL Total Calcium 7.8 L 8.5-10.1 mg/dL Stool Occult Blood POSITIVE H NEGATIVE Segmented Neutrophils % 73 H 40-70 % Lymphocytes % (Manual) 16 L 22-44 % Monocytes % (Manual) 8 2-9 % Eosinophils % (Manual) 2 1-6 % Basophils % (Manual) 1 0-2 % Differential Comment MANUAL DIFFERENTIAL White Cell Morphology Comment Platelet Morphology Comment DECREASED Red Blood Cell Morphology HYPOCHROM CELLS 1+ DIAGNOSTICS / RADIOLOGY: PATIENT: KIMBERLY DELONG ACCT: [id number] LOC: [facility] U: [id number] AGE/SX: 65/F ROOM: [facility] RE07/02/[address]: KRISTA FERMIN MD : 1960 BED: 1 DIS: STATUS: ADM IN TLOC: SPEC: [id number] GURJIT: 07/02/25 STATUS: COMP REQ: [id number] RECD: 07/03/[address]: JOSÉ MIGUEL DENNEY CNP [place] [facility] [place] JOYCE PAINTING: NONE SPDESC: CLEAN CAT MASHA GRIER MD ORDERED: AERO ID & SENS COMMENTS: NOTIFIED NURSE JAZIEL OTERO AT 0952 ON 07/04/25 AND FAXED TO [facility] BY NSANCHEZ -------- ---- Procedure Result [place] Date-Time AEROBIC ID & SENSITIVITIES Final 07/04/25 MRL EXTENDED SPECTRUM BETA-LACTAMASE ORGANISM IDENTIFIED. CRITICAL RESULT WAS CALLED BY ALLYSON ROSENBERG ON 07/04/25 AT 0810. CRITICAL VALUES WERE READ BACK AND ACKNOWLEDGED BY JUDSON RINCON ([facility] [place]) COLONY DESCRIPTION: DAY 1: COLONY COUNT: >100,000 CFU/ML GRAM NEGATIVE RODS IDENTIFICATION AND SENSITIVITY TO FOLLOW COMMENTS(R): ESBL ESCHERICHIA COLI E COLI M.I.C. RX --------- ---- AMPICILLIN >16 R* AZTREONAM >16 ESBL CEFAZOLIN >16 R* CEFTAZIDIME 16 ESBL CEFTAZIDIME/AVIBACTAM <=8 S CEFTRIAXONE >2 ESBL CIPROFLOXACIN >2 R GENTAMICIN <=2 S LEVOFLOXACIN >4 R NITROFURANTOIN <=32 S MEROPENEM <=1 S PIPERACILLIN/TAZOBACTAM <=8 S TRIMETHOPRIM/SUFLAMETHOXAZOLE <=2/38 S ASSESSMENT: Urinary tract infection with ESBL E coli. Anemia requiring blood transfusion. Thrombocytopenia. Acute renal failure. Liver cirrhosis. Diabetes mellitus. History of left nephrectomy. PLAN: Continue Zosyn. Continue antidiabetics. Continue GI prophylaxis. Pending insurance approval to [facility] for outpatient IV antibiotics with Zosyn for 10 days. This case was reviewed and discussed with my supervising physician Dr. Kennedy and the above assessment and plan was formulated and agreed upon. ATTESTATION BY PHYSICIAN I have seen and examined the patient. I reviewed the documentation, medical decision making, and treatment plan as noted by the mid-level provider above. I agree with the findings and plan of care. FRED KENNEDY MD, [facility] Jul 05, 2025 16:29
--- NOTE | 2025-07-05 17:52 | CONS ---
GASTROENTEROLOGY CONSULTATION NOTE Date of Consultation: Jul 05, 2025 Time of Consultation: 17:52 History of Present Illness: This is a 65-year-old female with past medical history of cirrhosis, anemia, type 2 diabetes and hypertension who presented due to abdominal pain. She was found to be anemic. We were consulted due to liver cirrhosis. Review of Systems: CONSTITUTIONAL: No malaise or change in sensation of wellbeing. ENMT: No rhinorrhea, otorrhea, sinus pain, ear ache. CARDIOVASCULAR: No angina, palpitations, orthopnea or paroxysmal dyspnea. RESPIRATORY: No SOB. GASTROINTESTINAL: No abdominal pain, nausea, vomiting, diarrhea, hematemesis, melena or change in the patient's habitual bowel movements consistency/number. GENITOURINARY: No dysuria, hematuria or change in bladder continence. MUSCULOSKELETAL: No new muscle pain or decrease in muscular strength. No new joint swelling, redness or tenderness. SKIN: No new rash. Past Medical History: ADDITIONAL PAST MEDICAL HISTORY: [Liver cirrhosis, anemia, Diabetes mellitius type2, hypertension] SOCIAL HISTORY: [Negative for smoking, or drug use. Patient drinks alcohol once every two or three weeks usually one glass of wine. Patient lives with the father, Rickey Woodard. Patient is typically independent of all her ADLs. Patient denies difficulty paying her bills. SURGICAL HISTORY: [Left nephrectomy, partial hysterectomy, cholecystectomy, lef t shoulder surgery, bilateral knee surgeries Coded Allergies: No Known Drug Allergies (Verified Allergy, 06/25/13) Physical Exam: GEN: Awake, alert, oriented in person, time and place, and in no acute distress. HEENT: No sinus tenderness. Tympanic membranes were not examined. No rhinorrhea. Oral pharyngeal mucosa is pink, moist and within normal limits. Neck is supple with no cervical lymphadenopathy, thyromegaly or JVD. CHEST: Inspection, palpation and percussion of the chest were unremarkable. Lung auscultation revealed normal breath sounds bilaterally. CARDIAC: PMI is within normal limits. Heart sounds are regular. Normal S1, S2. No gallop or murmur. ABD: Soft, non-tender and not distended. No peritoneal signs on palpation. No organomegaly. Normal bowel sounds. EXT: No cyanosis or clubbing. No edema. SKIN: Intact. No rashes. JOINTS: No evidence of synovitis or acute arthritis. NEURO: Alert and oriented to name, place and person. Cranial nerve examination is unremarkable. No focal motor deficits. Normal speech. Gait is normal. Strength is normal. Vital Sign (Last 24 Hours) 07/05/25 07/05/25 08:00 16:00 Temp 98.8 Pulse 69 Resp 18 B/P (MAP) 148/59 Pulse Ox 97 O2 Delivery Room Air O2 Flow Rate 0 FiO2 21 Intake & Output (last 24hrs) 07/04/25 07/04/25 07/05/25 15:00 23:00 07:00 Intake Total 1200 ml Output Total 1200 ml Balance 0 ml Laboratory: [ ] Laboratory: Test 07/05/25 15:53 07/05/25 03:20 07/04/25 14:18 07/04/25 04:08 Range/Units Whole Blood Glucose 202 H 70-110 MG/DL White Blood Count 3.6 #L 4.8-10.8 K/uL Red Blood Count 3.15 L 4.00-5.50 MIL/uL Hemoglobin 8.7 L 12.0-16.0 g/dL Hematocrit 26.2 L 36-48 % Mean Corpuscular Volume 83.2 79-99 fL Mean Corpuscular Hemoglobin 27.6 27.0-33.0 pg Mean Corpuscular Hemoglobin Concent 33.2 32.0-36.0 g/dL Red Cell Distribution Width 14.5 11.0-15.5 % Platelet Count 99 #L 130-400 K/uL Mean Platelet Volume 9.8 7.5-10.5 fL Nucleated Red Blood Cells 0.0 0.0-0.19 % Sodium Level 137 136-145 mmol/L Potassium Level 3.9 3.5-5.1 mmol/L Chloride Level 108 101-111 mmol/L Carbon Dioxide Level 22 21-32 mmol/L Blood Urea Nitrogen 17 7-18 mg/dL Creatinine 1.5 H 0.5-1.0 mg/dL Glomerular Filtration Rate Calc 38 >90 mL/min Random Glucose 150 H 70-105 mg/dL Total Calcium 7.8 L 8.5-10.1 mg/dL Stool Occult Blood POSITIVE H NEGATIVE Segmented Neutrophils % 73 H 40-70 % Lymphocytes % (Manual) 16 L 22-44 % Monocytes % (Manual) 8 2-9 % Eosinophils % (Manual) 2 1-6 % Basophils % (Manual) 1 0-2 % Differential Comment MANUAL DIFFERENTIAL White Cell Morphology Comment Platelet Morphology Comment DECREASED Red Blood Cell Morphology HYPOCHROM CELLS 1+ Current Medications Medications (Trade) Dose Ordered Sig/Shazia Route PRN Reason Start Time Stop Time Status Last Admin Dose Admin Acetaminophen (TYLenol 325MG TAB) 650 mg Q6H PRN PO TEMPERATURE GREATER THAN 101.5 07/02/25 23:00 08/01/25 22:59 Acetaminophen (TYLenol 325MG TAB) 650 mg Q6H PRN PO MILD PAIN (1-3) 07/03/25 14:30 08/02/25 14:29 07/05/25 08:10 650 MG Amlodipine Besylate (NorvASC 2.5MG TAB) 2.5 mg HS PO 07/03/25 21:00 08/02/25 20:59 07/04/25 20:15 2.5 MG Ceftriaxone Sodium (ROCEphine 1G INJ) 1 gm Q24H IVPB 07/02/25 23:00 07/04/25 13:00 DC 07/03/25 23:04 1 GM Folic Acid (FOLic ACID 1 MG TABLET) 1 mg DAILY PO 07/03/25 09:00 08/02/25 08:59 07/05/25 08:04 1 MG Furosemide (LASix 20MG TAB) 20 mg HS PO 07/03/25 21:00 08/02/25 20:59 07/04/25 20:15 20 MG Hydralazine HCl (APRESOLine 20MG INJ) 10 mg Q6H PRN IV For:SBP above 160;DBP above 90 07/02/25 23:00 08/01/25 22:59 Hydromorphone HCl (DiLAUDid 1MG INJ) 0.25 mg Q4H PRN IVP SEVERE PAIN (7-10) 07/02/25 23:00 07/07/25 22:59 07/04/25 20:18 0.25 MG Insulin Human Regular (humuLIN R 100 UNIT/ML 3ML) INSULIN SLIDING SCAL... ACHS SQ 07/03/25 07:30 08/02/25 07:29 07/05/25 16:55 3 UNIT Lactulose (Constulose 20gm/ 30ml Udcup) 20 gm BID PO 07/03/25 09:00 08/02/25 08:59 Magnesium Sulfate 50 ml @ 0 mls/hr PROTOCOL PRN IV MAGNESIUM PROTOCOL 07/03/25 05:00 08/02/25 04:59 07/03/25 05:13 25 MLS/HR Miscellaneous Medication (Lactulose ) 30 ml AD PRN PO OTHER [SEE ORDER COMMENTS] 07/03/25 18:00 07/03/25 18:09 DC Ondansetron HCl (zoFRAN 4MG TABLET) 4 mg TID PRN PO NAUSEA 07/03/25 18:00 08/02/25 17:59 Ondansetron HCl (zoFRAN 4MG INJ) 4 mg Q6H PRN IV NAUSEA/VOMITING IF NPO 07/02/25 23:00 08/01/25 22:59 07/03/25 11:01 4 MG Pantoprazole Sodium (PROTonix 40MG INJ) 40 mg BID IVP 07/03/25 21:00 08/02/25 20:59 07/05/25 08:04 40 MG Pantoprazole Sodium (PROTonix 40MG TAB) 40 mg DAILY PO 07/03/25 09:00 07/03/25 17:47 DC Piperacillin Sod/ Tazobactam Sod (Zosyn 3.375gm+NS 50ml) 3.375 gm Q8H IV 07/04/25 13:00 07/14/25 12:59 07/05/25 12:59 3.375 GM Rifaximin (Xifaxan) 550 mg BID PO 07/03/25 09:00 08/02/25 08:59 07/05/25 08:04 550 MG Sodium Chloride 1,000 ml @ 100 mls/hr Q10H STAT IV 07/02/25 19:52 07/03/25 05:51 DC 07/02/25 20:39 100 MLS/HR Spironolactone (Aldactone 25mg) 25 mg DAILY PO 07/03/25 09:00 08/02/25 08:59 07/05/25 08:04 25 MG Thiamine HCl (Vitamin B-1) 100 mg DAILY PO 07/03/25 09:00 08/02/25 08:59 07/05/25 08:04 100 MG Diagnostics / Radiology: [COPY/PASTE HERE IF NO REPORTS PLEASE DELETE SECTION] Assessment: GI bleed Acute blood loss anemia Cirrhosis DM Plan: EGD in am Continue GI prophylaxis Advance diet as tolerated Avoid NSAIDs Antireflux measures Monitor H&H and transfuse as needed Call with questions, concerns or change in clinical status Patient to follow-up at clinic post discharge Thank you for this consult MISTI BURNS ADVISOR CONSULTANT Jul 05, 2025 17:52
[2025-07-05 20:00] VITALS: BP 151/57; PULSE 79; RESP 20; TEMP 98.2
[2025-07-06] VITALS (17 sets, daily range): BP systolic 129–177; BP diastolic 57–76; PULSE 58–78; RESP 15–20; TEMP 97.5–98.5; O2SAT 72
[2025-07-06 03:48] LABS: NUCLEATED RED BLOOD CELLS 0.0 % (0.0-0.19); PLATELET COUNT (AUTO) 83 K/uL (130-400); RED BLOOD CELL COUNT(AUTO) 2.85 MIL/uL (4.00-5.50); RED CELL DISTRIBUTION WIDTH 14.6 % (11.0-15.5); WHITE BLOOD COUNT (AUTO) 2.9 K/uL (4.8-10.8)
[2025-07-06 04:11] LABS: CREATININE 1.5 mg/dL (0.5-1.0); GLOMERULAR FILTR. RATE CALC 38.0 mL/min (>90); GLUCOSE,RANDOM 164.0 mg/dL (70-105); SODIUM SERUM 137.0 mmol/L (136-145); UREA NITROGEN, BLOOD 21.0 mg/dL (7-18)
[2025-07-06 04:31] LABS: BAND NEUTROPHILS % (MANUAL) 2 % (0-2); EOSINOPHILS % (MANUAL) 3 % (1-6); LYMPHOCYTES % (MANUAL) 21 % (22-44); MONOCYTES % (MANUAL) 9 % (2-9); SEGMENTED NEUTROPHILS % 65 % (40-70)
[2025-07-06 04:32] LABS: MAN.DIFF COMMENT-IMPRESSION MANUAL DIFFERENTIAL; PLATELET MORPHOLOGY COMMENT DECREASED; WBC MORPHOLOGY SMUDGE CELLS 1+
--- NOTE | 2025-07-06 11:06 | PN ---
[facility] PROGRESS NOTE Date of Service: Jul 06, 2025 Time of Service: 11:04 SUBJECTIVE: Patient continues with IV antibiotics, she is concerned about her positive occult blood and anemia. We will be consulting Gastroenterology. Patient has been accepted to [facility] to continue with her IV antibiotics but we need to consult GI for GI bleed. 07/06/2025 patient was seen earlier patient waiting for EGD today she reports no active bleeding. We will follow EGD results. Patient is tolerating IV antibio tics no nausea no vomiting no diarrhea REVIEW OF SYSTEMS CONSTITUTIONAL: Denies fevers, chills, or night sweats. No unintentional weight loss reported. NEUROLOGICAL: Denies headache, amaurosis fugax, motor weakness, sensory deficit, vertigo/spinning sensation, gait abnormalities, or tremors. ENT: No hearing loss, otalgia, otorrhea, rhinitis, rhinorrhea, hoarseness, or sore throat. CARDIOVASCULAR: Denies any exertional angina, dyspnea on exertion, orthopnea, paroxysmal nocturnal dyspnea, palpitations, life-threatening arrhythmias, claudication. PULMONARY: Denies any shortness of breath, cough, phlegm/sputum, hemoptysis, pleuritic chest pain. SLEEP: Denies morning headaches, daytime somnolence or napping. Denies difficulty falling asleep, staying asleep, waking from sleep. Denies knowledge of snoring. GASTROINTESTINAL: Denies any type of dysphagia to either liquids or solids. Denies nausea, vomiting, pyrosis, early satiety, abdominal pain, diarrhea, constipation, or changes in stool consistency or caliber. Denies coffee-ground emesis, hematemesis, hematochezia, or melanotic stools. GENITOURINARY: Denies frequency, urgency, nocturia, hematuria or incontinence ( Storage/Irritative symptoms.) Low urinary stream, straining to void, urinary intermittency or hesitancy, splitting of the voiding stream, terminal dribbling. ENDOCRINOLOGIC: Denies polyuria, polydipsia, polyphagia or heat/cold intolerances. HEMATOLOGIC: Denies thrombophilia/previous clots, or coagulopathy/bleeding disorders. ONCOLOGIC: Denies personal history of malignancy. DERMATOLOGIC: Denies rashes or pruritus. PSYCHIATRIC: Denies any suicidal or homicidal ideation. Denies hallucinations. PHYSICAL EXAM GENERAL APPEARANCE: The patient is awake, alert, and oriented, in no acute cardiopulmonary distress. NEUROLOGICAL: Cranial nerves II-XII grossly intact. Motor is 5/5 in bilateral upper and lower extremities proximal to distal. No sensory deficits. HEENT: Face is symmetric. Pupils are equal and reactive. Extraocular movements are intact. NECK: Supple. No JVD. No thyromegaly. No submental, submandibular, pre- /postauricular, occipital or supraclavicular lymphadenopathy. CHEST: Normal chest expansion. No Telemetry. LUNGS: Absence of any rales, rhonchi or any wheezing. CARDIOVASCULAR: Regular. S1 and S2 normal. No appreciable rubs, murmurs or gallops. ABDOMEN: Soft, nontender, and nondistended. There is no rebound, voluntary guarding, or rigidity. : Deferred. No Mcmillan. EXTREMITIES: Non-edematous and not cyanotic. No clubbing. Good capillary refill. SKIN: No skin breakdown. Vital Signs (last 8hr) Date Time Temp Pulse Resp B/P (MAP) Pulse Ox O2 Delivery O2 Flow Rate FiO2 07/06/25 07:40 98.1 66 17 136/57 96 Room Air 07/06/25 04:00 98.2 69 20 148/58 98 Room Air LABS: Laboratory: Test 07/06/25 03:27 07/05/25 19:21 07/04/25 14:18 Range/Units White Blood Count 2.9 L 4.8-10.8 K/uL Red Blood Count 2.85 L 4.00-5.50 MIL/uL Hemoglobin 7.8 L 12.0-16.0 g/dL Hematocrit 23.9 L 36-48 % Mean Corpuscular Volume 83.9 79-99 fL Mean Corpuscular Hemoglobin 27.4 27.0-33.0 pg Mean Corpuscular Hemoglobin Concent 32.6 32.0-36.0 g/dL Red Cell Distribution Width 14.6 11.0-15.5 % Platelet Count 83 L 130-400 K/uL Mean Platelet Volume 9.2 7.5-10.5 fL Segmented Neutrophils % 65 40-70 % Band Neutrophils % 2 0-2 % Lymphocytes % (Manual) 21 L 22-44 % Monocytes % (Manual) 9 2-9 % Eosinophils % (Manual) 3 1-6 % Nucleated Red Blood Cells 0.0 0.0-0.19 % Differential Comment MANUAL DIFFERENTIAL White Cell Morphology Comment SMUDGE CELLS 1+ Platelet Morphology Comment DECREASED Red Blood Cell Morphology HYPOCHROM CELLS 1+ Sodium Level 137 136-145 mmol/L Potassium Level 3.8 3.5-5.1 mmol/L Chloride Level 109 101-111 mmol/L Carbon Dioxide Level 22 21-32 mmol/L Blood Urea Nitrogen 21 H 7-18 mg/dL Creatinine 1.5 H 0.5-1.0 mg/dL Glomerular Filtration Rate Calc 38 >90 mL/min Random Glucose 164 H 70-105 mg/dL Total Calcium 7.4 L 8.5-10.1 mg/dL Whole Blood Glucose 189 H 70-110 MG/DL Stool Occult Blood POSITIVE H NEGATIVE Current Medications Medications (Trade) Dose Ordered Sig/Shazia Route PRN Reason Start Time Stop Time Status Last Admin Dose Admin Acetaminophen (TYLenol 325MG TAB) 650 mg Q6H PRN PO TEMPERATURE GREATER THAN 101.5 07/02/25 23:00 08/01/25 22:59 Acetaminophen (TYLenol 325MG TAB) 650 mg Q6H PRN PO MILD PAIN (1-3) 07/03/25 14:30 08/02/25 14:29 07/05/25 21:10 650 MG Amlodipine Besylate (NorvASC 2.5MG TAB) 2.5 mg HS PO 07/03/25 21:00 08/02/25 20:59 07/05/25 21:03 2.5 MG Ceftriaxone Sodium (ROCEphine 1G INJ) 1 gm Q24H IVPB 07/02/25 23:00 07/04/25 13:00 DC 07/03/25 23:04 1 GM Folic Acid (FOLic ACID 1 MG TABLET) 1 mg DAILY PO 07/03/25 09:00 08/02/25 08:59 07/05/25 08:04 1 MG Furosemide (LASix 20MG TAB) 20 mg HS PO 07/03/25 21:00 08/02/25 20:59 07/05/25 21:03 20 MG Hydralazine HCl (APRESOLine 20MG INJ) 10 mg Q6H PRN IV For:SBP above 160;DBP above 90 07/02/25 23:00 08/01/25 22:59 Hydromorphone HCl (DiLAUDid 1MG INJ) 0.25 mg Q4H PRN IVP SEVERE PAIN (7-10) 07/02/25 23:00 07/07/25 22:59 07/04/25 20:18 0.25 MG Insulin Human Regular (humuLIN R 100 UNIT/ML 3ML) INSULIN SLIDING SCAL... ACHS SQ 07/03/25 07:30 08/02/25 07:29 07/05/25 21:24 2 UNIT Lactulose (Constulose 20gm/ 30ml Udcup) 20 gm BID PO 07/03/25 09:00 08/02/25 08:59 Magnesium Sulfate 50 ml @ 0 mls/hr PROTOCOL PRN IV MAGNESIUM PROTOCOL 07/03/25 05:00 08/02/25 04:59 07/03/25 05:13 25 MLS/HR Miscellaneous Medication (Lactulose ) 30 ml AD PRN PO OTHER [SEE ORDER COMMENTS] 07/03/25 18:00 07/03/25 18:09 DC Ondansetron HCl (zoFRAN 4MG TABLET) 4 mg TID PRN PO NAUSEA 07/03/25 18:00 08/02/25 17:59 Ondansetron HCl (zoFRAN 4MG INJ) 4 mg Q6H PRN IV NAUSEA/VOMITING IF NPO 07/02/25 23:00 08/01/25 22:59 07/03/25 11:01 4 MG Pantoprazole Sodium (PROTonix 40MG INJ) 40 mg BID IVP 07/03/25 21:00 08/02/25 20:59 07/06/25 08:28 40 MG Pantoprazole Sodium (PROTonix 40MG TAB) 40 mg DAILY PO 07/03/25 09:00 07/03/25 17:47 DC Piperacillin Sod/ Tazobactam Sod (Zosyn 3.375gm+NS 50ml) 3.375 gm Q8H IV 07/04/25 13:00 07/14/25 12:59 07/06/25 06:23 3.375 GM Rifaximin (Xifaxan) 550 mg BID PO 07/03/25 09:00 08/02/25 08:59 07/05/25 21:03 550 MG Sodium Chloride 1,000 ml @ 100 mls/hr Q10H STAT IV 07/02/25 19:52 07/03/25 05:51 DC 11/17/25 20:39 100 MLS/HR Spironolactone (Aldactone 25mg) 25 mg DAILY PO 07/03/25 09:00 08/02/25 08:59 07/05/25 08:04 25 MG Thiamine HCl (Vitamin B-1) 100 mg DAILY PO 07/03/25 09:00 08/02/25 08:59 07/05/25 08:04 100 MG DIAGNOSTICS / RADIOLOGY: [ ] ASSESSMENT: Acute lower GI bleed Liver cirrhosis, POA Pancytopenia, POA Precipitous drop in hemoglobin, POA CKD stage IIIB, POA Urinary tract infection, POA PLAN: This is a 65-year-old was admitted for positive occult blood and anemia patient has underlying liver cirrhosis. She is scheduled for a EGD this afternoon. 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 Continue rifaximin Renal non hemodialysis diet We will switch to pantoprazole b.i.d. We will consider starting octreotide No need for IV fluids Continue spironolactone Trend a.m. BMP Replete electrolytes as necessary Transfuse 1 unit PRBC DVT prophylaxis with SCDs only due to concerns for bleeding Trend a.m. CBC Full code Case was discussed with patient's nurse at bedside Attention time greater than 30 minutes ATTESTATION BY PHYSICIAN I have seen and examined the patient. I reviewed the documentation, medical decision making, and treatment plan as noted by the mid-level provider above. I agree with the findings and plan of care. ZOË MORGAN MD, [facility] Jul 06, 2025 11:06
--- NOTE | 2025-07-06 12:36 | PN ---
INFECTIOUS DISEASE PROGRESS NOTE Date of Service: Jul 06, 2025 SUBJECTIVE: This is a 65-year-old female patient was evaluated today at bedside. Patient continues on Zosyn IV for UTI, ESBL E.coli . She is pending EGD to be done. Patient once ready to be discharge will continue antibiotics as outpatient in [facility] for 10 days. PHYSICAL EXAM EYES: Anicteric. Pupils equal and reactive. HENT: No oral thrush seen, moist Oral mucosa. NECK: Supple, no JVD or thyromegaly. LUNGS: Good air entry. No rales, no rhonchi. CARDIOVASCULAR: S1, S2 regular. No murmur heard. ABDOMEN: Soft, non tender, bowel sounds present. CENTRAL NERVOUS SYSTEM: Awake, alert, oriented x 3. SKIN: No rashes, no swelling. LYMPHATICS: No peripheral lymphadenopathy. MUSCULOSKELETAL: No joint swelling, erythema or tenderness. EXTREMITIES: No cyanosis or clubbing. BACK: No deformity, no pressure ulcer. GENITOURINARY: No dysuria or hematuria. Vital Sign (Last 12 Hours) 07/06/25 07/06/25 07/06/25 04:00 07:40 08:01 Temp 98.2 98.1 Pulse 69 66 Resp 20 17 B/P (MAP) 148/58 136/57 Pulse Ox 98 96 72 O2 Delivery Room Air Room Air Room Air* O2 Flow Rate 0 FiO2 21 Intake & Output (last 24hrs) 07/05/25 07/05/25 07/06/25 15:00 23:00 07:00 Intake Total 1320 ml 50.0 ml Output Total 400 ml 175 ml Balance 920 ml -125.0 ml LABS: Laboratory: Test 07/06/25 03:27 07/05/25 19:21 07/04/25 14:18 Range/Units White Blood Count 2.9 L 4.8-10.8 K/uL Red Blood Count 2.85 L 4.00-5.50 MIL/uL Hemoglobin 7.8 L 12.0-16.0 g/dL Hematocrit 23.9 L 36-48 % Mean Corpuscular Volume 83.9 79-99 fL Mean Corpuscular Hemoglobin 27.4 27.0-33.0 pg Mean Corpuscular Hemoglobin Concent 32.6 32.0-36.0 g/dL Red Cell Distribution Width 14.6 11.0-15.5 % Platelet Count 83 L 130-400 K/uL Mean Platelet Volume 9.2 7.5-10.5 fL Segmented Neutrophils % 65 40-70 % Band Neutrophils % 2 0-2 % Lymphocytes % (Manual) 21 L 22-44 % Monocytes % (Manual) 9 2-9 % Eosinophils % (Manual) 3 1-6 % Nucleated Red Blood Cells 0.0 0.0-0.19 % Differential Comment MANUAL DIFFERENTIAL White Cell Morphology Comment SMUDGE CELLS 1+ Platelet Morphology Comment DECREASED Red Blood Cell Morphology HYPOCHROM CELLS 1+ Sodium Level 137 136-145 mmol/L Potassium Level 3.8 3.5-5.1 mmol/L Chloride Level 109 101-111 mmol/L Carbon Dioxide Level 22 21-32 mmol/L Blood Urea Nitrogen 21 H 7-18 mg/dL Creatinine 1.5 H 0.5-1.0 mg/dL Glomerular Filtration Rate Calc 38 >90 mL/min Random Glucose 164 H 70-105 mg/dL Total Calcium 7.4 L 8.5-10.1 mg/dL Whole Blood Glucose 189 H 70-110 MG/DL Stool Occult Blood POSITIVE H NEGATIVE DIAGNOSTICS / RADIOLOGY: PATIENT: KIMBERLY DELONG ACCT: [id number] LOC: [facility] U: [id number] AGE/SX: 65/F ROOM: [facility] RE07/02/[address]: KRISTA FERMIN MD : 1960 BED: 1 DIS: STATUS: ADM IN TLOC: SPEC: [id number] GURJIT: 07/02/25 STATUS: COMP REQ: [id number] RECD: 07/03/[address]: JOSÉ MIGUEL DENNEY CNP SOURCE: [facility] [place] ENTR: 07/03/[address]: NONE SPDESC: CLEAN CAT MASHA GRIER MD ORDERED: AERO ID & SENS COMMENTS: NOTIFIED NURSE JAZIEL OTERO AT 0952 ON 07/04/25 AND FAXED TO [facility] BY TAMMIE Procedure Result Cortez Date-Time AEROBIC ID & SENSITIVITIES Final 07/04/25-08 MRL EXTENDED SPECTRUM BETA-LACTAMASE ORGANISM IDENTIFIED. CRITICAL RESULT WAS CALLED BY ALLYSON ROSENBERG ON 07/04/25 AT 0810. CRITICAL VALUES WERE READ BACK AND ACKNOWLEDGED BY JUDSON RINCON [place] [place]Y DESCRIPTION: DAY 1: COLONY COUNT: >100,000 CFU/ML GRAM NEGATIVE RODS IDENTIFICATION AND SENSITIVITY TO FOLLOW COMMENTS(R): ESBL ESCHERICHIA COLI E COLI M.I.C. RX --------- ---- AMPICILLIN >16 R* AZTREONAM >16 ESBL CEFAZOLIN >16 R* CEFTAZIDIME 16 ESBL CEFTAZIDIME/AVIBACTAM <=8 S CEFTRIAXONE >2 ESBL CIPROFLOXACIN >2 R GENTAMICIN <=2 S LEVOFLOXACIN >4 R NITROFURANTOIN <=32 S MEROPENEM <=1 S PIPERACILLIN/TAZOBACTAM <=8 S TRIMETHOPRIM/SUFLAMETHOXAZOLE <=2/38 S ASSESSMENT: Urinary tract infection with ESBL E coli. Anemia requiring blood transfusion. Thrombocytopenia. Acute renal failure. Liver cirrhosis. Diabetes mellitus. History of left nephrectomy. PLAN: Continue Zosyn. Continue antidiabetics. Continue GI prophylaxis. Pending insurance approval to [facility] for outpatient IV antibiotics with Zosyn for 10 days. Pending EGD This case was reviewed and discussed with my supervising physician Dr. Rico and the above assessment and plan was formulated and agreed upon. ASHTYN ARANA [facility] Jul 06, 2025 12:36
[2025-07-06] MEDS ORDERED: MIDAZOLAM HCL 1 MG/ML 2ML VIAL ONE (12:51)
[2025-07-06] MEDS ORDERED: LIDOCAINE PF 100MG/5ML (2%) SYRINGE 5ML ONE (12:52)
--- NOTE | 2025-07-06 16:00 | PN ---
INFECTIOUS DISEASE PROGRESS NOTE Date of Service: Jul 06, 2025 SUBJECTIVE: This is a 65-year-old female patient was evaluated today at bedside. Patient will be undergoing EGD this morning. Hemoglobin is 7.8 noted this morning. Patient continues on Zosyn IV for UTI, ESBL and E coli. She is to follow up as outpatient to continue antibiotics for 10 days, once patient is discharged. PHYSICAL EXAM EYES: Anicteric. Pupils equal and reactive. HENT: No oral thrush seen, moist Oral mucosa. NECK: Supple, no JVD or thyromegaly. LUNGS: Good air entry. No rales, no rhonchi. CARDIOVASCULAR: S1, S2 regular. No murmur heard. ABDOMEN: Soft, non tender, bowel sounds present. CENTRAL NERVOUS SYSTEM: Awake, alert, oriented x 3. SKIN: No rashes, no swelling. LYMPHATICS: No peripheral lymphadenopathy. MUSCULOSKELETAL: No joint swelling, erythema or tenderness. EXTREMITIES: No cyanosis or clubbing. BACK: No deformity, no pressure ulcer. GENITOURINARY: No dysuria or hematuria. Vital Sign (Last 12 Hours) 07/06/25 07/06/25 07/06/25 07/06/25 04:00 07:40 08:01 12:53 Temp 98.2 98.1 Pulse 69 66 Resp 20 17 B/P (MAP) 148/58 136/57 Pulse Ox 98 96 72 O2 Delivery Room Air Room Air Room Air* Mask O2 Flow Rate 0 FiO2 21 07/06/25 07/06/25 07/06/25 07/06/25 12:53 13:02 13:07 13:12 Temp 97.5 Pulse 65 71 66 Resp 16 15 16 B/P (MAP) 129/58 134/58 136/59 Pulse Ox 100 98 98 O2 Delivery Mask Nonrebreathing Mask Room Air Room Air O2 Flow Rate 10.0 10.0 07/06/25 07/06/25 07/06/25 07/06/25 13:17 13:22 13:27 13:32 Temp 97.5 Pulse 65 69 70 66 Resp 16 15 16 17 B/P (MAP) 144/61 148/64 150/59 145/63 Pulse Ox 100 98 98 97 O2 Delivery Room Air Room Air Room Air Room Air Intake & Output (last 24hrs) 07/05/25 07/05/25 07/06/25 15:00 23:00 07:00 Intake Total 1320 ml 50.0 ml Output Total 400 ml 175 ml Balance 920 ml -125.0 ml LABS: Laboratory: Test 07/06/25 15:39 07/06/25 03:27 Range/Units Whole Blood Glucose 108 70-110 MG/DL White Blood Count 2.9 L 4.8-10.8 K/uL Red Blood Count 2.85 L 4.00-5.50 MIL/uL Hemoglobin 7.8 L 12.0-16.0 g/dL Hematocrit 23.9 L 36-48 % Mean Corpuscular Volume 83.9 79-99 fL Mean Corpuscular Hemoglobin 27.4 27.0-33.0 pg Mean Corpuscular Hemoglobin Concent 32.6 32.0-36.0 g/dL Red Cell Distribution Width 14.6 11.0-15.5 % Platelet Count 83 L 130-400 K/uL Mean Platelet Volume 9.2 7.5-10.5 fL Segmented Neutrophils % 65 40-70 % Band Neutrophils % 2 0-2 % Lymphocytes % (Manual) 21 L 22-44 % Monocytes % (Manual) 9 2-9 % Eosinophils % (Manual) 3 1-6 % Nucleated Red Blood Cells 0.0 0.0-0.19 % Differential Comment MANUAL DIFFERENTIAL White Cell Morphology Comment SMUDGE CELLS 1+ Platelet Morphology Comment DECREASED Red Blood Cell Morphology HYPOCHROM CELLS 1+ Sodium Level 137 136-145 mmol/L Potassium Level 3.8 3.5-5.1 mmol/L Chloride Level 109 101-111 mmol/L Carbon Dioxide Level 22 21-32 mmol/L Blood Urea Nitrogen 21 H 7-18 mg/dL Creatinine 1.5 H 0.5-1.0 mg/dL Glomerular Filtration Rate Calc 38 >90 mL/min Random Glucose 164 H 70-105 mg/dL Total Calcium 7.4 L 8.5-10.1 mg/dL DIAGNOSTICS / RADIOLOGY: PATIENT: KIMBERLY DELONG ACCT: [id number] LOC: [facility] U: [id number] AGE/SX: 65/F ROOM: [facility] RE07/02/[address]: KRISTA FERMIN MD : 1960 BED: 1 DIS: STATUS: ADM IN TLOC: SPEC: [id number] GURJIT: 07/02/25 STATUS: COMP REQ: [id number] RECD: 07/03/[address]: JOSÉ MIGUEL DENNEY CHEMICAL LABORATORY TECHNICIAN SOURCE: [facility] [place] ENTR: 07/03/[address]: NONE SPDESC: CLEAN CAT MASHA GRIER MD ORDERED: AERO ID & SENS COMMENTS: NOTIFIED NURSE JAZIEL OTERO AT 0952 ON 07/04/25 AND FAXED TO [facility] BY TAMMIE Procedure Result Cortez Date-Time AEROBIC ID & SENSITIVITIES Final 07/04/25-0814 MRL EXTENDED SPECTRUM BETA-LACTAMASE ORGANISM IDENTIFIED. CRITICAL RESULT WAS CALLED BY ALLYSON ROSENBERG ON 07/04/25 AT 0810. CRITICAL VALUES WERE READ BACK AND ACKNOWLEDGED BY JUDSON RINCON [place] [place] COLONY DESCRIPTION: DAY 1: COLONY COUNT: >100,000 CFU/ML GRAM NEGATIVE RODS IDENTIFICATION AND SENSITIVITY TO FOLLOW COMMENTS(R): ESBL ESCHERICHIA COLI E COLI M.I.C. RX --------- ---- AMPICILLIN >16 R* AZTREONAM >16 ESBL CEFAZOLIN >16 R* CEFTAZIDIME 16 ESBL CEFTAZIDIME/AVIBACTAM <=8 S CEFTRIAXONE >2 ESBL CIPROFLOXACIN >2 R GENTAMICIN <=2 S LEVOFLOXACIN >4 R NITROFURANTOIN <=32 S MEROPENEM <=1 S PIPERACILLIN/TAZOBACTAM <=8 S TRIMETHOPRIM/SUFLAMETHOXAZOLE <=2/38 S ASSESSMENT: Urinary tract infection with ESBL E coli. Anemia requiring blood transfusion. Thrombocytopenia. Acute renal failure. Liver cirrhosis. Diabetes mellitus. History of left nephrectomy. PLAN: Continue Zosyn. Continue antidiabetics. Continue GI prophylaxis. Pending insurance approval to [facility] for outpatient IV antibiotics with Zosyn for 10 days. Pending EGD This case was reviewed and discussed with my supervising physician Dr. Rico and the above assessment and plan was formulated and agreed upon. ASHTYN ARANA Jul 06, 2025 16:00
[2025-07-07] VITALS: BP 142/58; PULSE 71; RESP 18; TEMP 99.4
[2025-07-07 03:57] LABS: IMMATURE GRANULOCYTE ABSOLUTE 0.01 K/uL (0-1); NUCLEATED RED BLOOD CELLS 0.0 % (0.0-0.19); PLATELET COUNT (AUTO) 70 K/uL (130-400); RED BLOOD CELL COUNT(AUTO) 2.73 MIL/uL (4.00-5.50); RED CELL DISTRIBUTION WIDTH 14.6 % (11.0-15.5); WHITE BLOOD COUNT (AUTO) 2.9 K/uL (4.8-10.8)
[2025-07-07 04:00] VITALS: BP 140/54; PULSE 67; RESP 19; TEMP 98.7
[2025-07-07 04:20] LABS: ASPARTATE AMINOTRANSFERASE 31.0 U/L (10-37); CREATININE 1.4 mg/dL (0.5-1.0); GLOMERULAR FILTR. RATE CALC 41.0 mL/min (>90); GLUCOSE,RANDOM 133.0 mg/dL (70-105); SODIUM SERUM 138.0 mmol/L (136-145); TOTAL PROTEIN, SERUM 5.1 g/dL (6.0-8.3); UREA NITROGEN, BLOOD 22.0 mg/dL (7-18)
[2025-07-07 08:00] VITALS: BP 146/65; PULSE 67; RESP 24; TEMP 97.6; O2SAT 96
--- NOTE | 2025-07-07 11:35 | PN ---
[facility] PROGRESS NOTE Date of Service: Jul 07, 2025 Time of Service: 11:30 SUBJECTIVE: Patient continues with IV antibiotics, she is concerned about her positive occult blood and anemia. We will be consulting Gastroenterology. Patient has been accepted to [facility] to continue with her IV antibiotics but we need to consult GI for GI bleed. 07/06/2025 patient was seen earlier patient waiting for EGD today she reports no active bleeding. We will follow EGD results. Patient is tolerating IV antibio tics no nausea no vomiting no diarrhea 07/07 no signs of active bleeding. REVIEW OF SYSTEMS CONSTITUTIONAL: Denies fevers, chills, or night sweats. No unintentional weight loss reported. NEUROLOGICAL: Denies headache, amaurosis fugax, motor weakness, sensory deficit, vertigo/spinning sensation, gait abnormalities, or tremors. ENT: No hearing loss, otalgia, otorrhea, rhinitis, rhinorrhea, hoarseness, or sore throat. CARDIOVASCULAR: Denies any exertional angina, dyspnea on exertion, orthopnea, paroxysmal nocturnal dyspnea, palpitations, life-threatening arrhythmias, claudication. PULMONARY: Denies any shortness of breath, cough, phlegm/sputum, hemoptysis, pleuritic chest pain. SLEEP: Denies morning headaches, daytime somnolence or napping. Denies difficulty falling asleep, staying asleep, waking from sleep. Denies knowledge of snoring. GASTROINTESTINAL: Denies any type of dysphagia to either liquids or solids. Denies nausea, vomiting, pyrosis, early satiety, abdominal pain, diarrhea, constipation, or changes in stool consistency or caliber. Denies coffee-ground emesis, hematemesis, hematochezia, or melanotic stools. GENITOURINARY: Denies frequency, urgency, nocturia, hematuria or incontinence (Storage/Irritative symptoms.) Low urinary stream, straining to void, urinary intermittency or hesitancy, splitting of the voiding stream, terminal dribbling. ENDOCRINOLOGIC: Denies polyuria, polydipsia, polyphagia or heat/cold intolerances. HEMATOLOGIC: Denies thrombophilia/previous clots, or coagulopathy/bleeding disorders. ONCOLOGIC: Denies personal history of malignancy. DERMATOLOGIC: Denies rashes or pruritus. PSYCHIATRIC: Denies any suicidal or homicidal ideation. Denies hallucinations. PHYSICAL EXAM GENERAL APPEARANCE: The patient is awake, alert, and oriented, in no acute cardiopulmonary distress. NEUROLOGICAL: Cranial nerves II-XII grossly intact. Motor is 5/5 in bilateral upper and lower extremities proximal to distal. No sensory deficits. HEENT: Face is symmetric. Pupils are equal and reactive. Extraocular movements are intact. NECK: Supple. No JVD. No thyromegaly. No submental, submandibular, pre-/po stauricular, occipital or supraclavicular lymphadenopathy. CHEST: Normal chest expansion. No Telemetry. LUNGS: Absence of any rales, rhonchi or any wheezing. CARDIOVASCULAR: Regular. S1 and S2 normal. No appreciable rubs, murmurs or gallops. ABDOMEN: Soft, nontender, and nondistended. There is no rebound, voluntary guarding, or rigidity. : Deferred. No Mcmillan. EXTREMITIES: Non-edematous and not cyanotic. No clubbing. Good capillary refill. SKIN: No skin breakdown. Vital Signs (last 8hr) Date Time Temp Pulse Resp B/P (MAP) Pulse Ox O2 Delivery O2 Flow Rate FiO2 07/07/25 08:00 97.5 67 24 146/65 97 Room Air 21 07/07/25 08:00 96 Room Air* 0 21 07/07/25 04:00 98.8 67 19 140/54 94 Room Air LABS: Laboratory: Test 07/07/25 11:05 07/07/25 03:40 07/06/25 03:27 Range/Units Whole Blood Glucose 171 H 70-110 MG/DL Bedside Glucose Comment Notified Nurse White Blood Count 2.9 L 4.8-10.8 K/uL Red Blood Count 2.73 L 4.00-5.50 MIL/uL Hemoglobin 7.6 L 12.0-16.0 g/dL Hematocrit 23.1 L 36-48 % Mean Corpuscular Volume 84.6 79-99 fL Mean Corpuscular Hemoglobin 27.8 27.0-33.0 pg Mean Corpuscular Hemoglobin Concent 32.9 32.0-36.0 g/dL Red Cell Distribution Width 14.6 11.0-15.5 % Platelet Count 70 L 130-400 K/uL Mean Platelet Volume 9.9 7.5-10.5 fL Immature Granulocyte % (Auto) 0.3 0-1 % Neutrophils (%) (Auto) 51.8 40.0-77.0 % Lymphocytes (%) (Auto) 32.3 21.0-51.0 % Monocytes (%) (Auto) 7.3 3.0-13.0 % Eosinophils (%) (Auto) 8.0 0.0-8.0 % Basophils (%) (Auto) 0.3 0.0-5.0 % Neutrophils # (Auto) 1.5 L 1.8-7.7 K/uL Lymphocytes # (Auto) 0.9 L 1.0-4.8 K/uL Monocytes # (Auto) 0.2 0.1-1.0 K/uL Eosinophils # (Auto) 0.23 0.00-0.70 K/uL Basophils # (Auto) 0.01 0.00-0.20 K/uL Absolute Immature Granulocyte (auto 0.01 0-1 K/uL Nucleated Red Blood Cells 0.0 0.0-0.19 % Sodium Level 138 136-145 mmol/L Potassium Level 4.3 3.5-5.1 mmol/L Chloride Level 110 101-111 mmol/L Carbon Dioxide Level 23 21-32 mmol/L Blood Urea Nitrogen 22 H 7-18 mg/dL Creatinine 1.4 H 0.5-1.0 mg/dL Glomerular Filtration Rate Calc 41 >90 mL/min Random Glucose 133 H 70-105 mg/dL Total Calcium 7.3 L 8.5-10.1 mg/dL Magnesium Level 1.90 1.80-2.40 mg/dL Total Bilirubin 0.4 0.2-1.0 mg/dL Aspartate Amino Transf (AST/SGOT) 31 10-37 U/L Alanine Aminotransferase (ALT/SGPT) 17 12-78 U/L Alkaline Phosphatase 185 H 50-136 U/L Total Protein 5.1 L 6.0-8.3 g/dL Albumin 1.6 L 3.5-5.0 g/dL Segmented Neutrophils % 65 40-70 % Band Neutrophils % 2 0-2 % Lymphocytes % (Manual) 21 L 22-44 % Monocytes % (Manual) 9 2-9 % Eosinophils % (Manual) 3 1-6 % Current Medications Medications (Trade) Dose Ordered Sig/Shazia Route PRN Reason Start Time Stop Time Status Last Admin Dose Admin Acetaminophen (TYLenol 325MG TAB) 650 mg Q6H PRN PO TEMPERATURE GREATER THAN 101.5 07/02/25 23:00 08/01/25 22:59 Acetaminophen (TYLenol 325MG TAB) 650 mg Q6H PRN PO MILD PAIN (1-3) 07/03/25 14:30 08/02/25 14:29 07/05/25 21:10 650 MG Amlodipine Besylate (NorvASC 2.5MG TAB) 2.5 mg HS PO 07/03/25 21:00 08/02/25 20:59 07/06/25 20:18 2.5 MG Ceftriaxone Sodium (ROCEphine 1G INJ) 1 gm Q24H IVPB 07/02/25 23:00 07/04/25 13:00 DC 07/03/25 23:04 1 GM Folic Acid (FOLic ACID 1 MG TABLET) 1 mg DAILY PO 07/03/25 09:00 08/02/25 08:59 07/07/25 09:20 1 MG Furosemide (LASix 20MG TAB) 20 mg HS PO 07/03/25 21:00 08/02/25 20:59 07/06/25 20:18 20 MG Hydralazine HCl (APRESOLine 20MG INJ) 10 mg Q6H PRN IV For:SBP above 160;DBP above 90 07/02/25 23:00 08/01/25 22:59 Hydromorphone HCl (DiLAUDid 1MG INJ) 0.25 mg Q4H PRN IVP SEVERE PAIN (7-10) 07/02/25 23:00 07/07/25 22:59 07/04/25 20:18 0.25 MG Insulin Human Regular (humuLIN R 100 UNIT/ML 3ML) INSULIN SLIDING SCAL... ACHS SQ 07/03/25 07:30 08/02/25 07:29 07/06/25 20:28 3 UNIT Lactulose (Constulose 20gm/ 30ml Udcup) 20 gm BID PO 07/03/25 09:00 08/02/25 08:59 Magnesium Sulfate 50 ml @ 0 mls/hr PROTOCOL PRN IV MAGNESIUM PROTOCOL 07/03/25 05:00 08/02/25 04:59 07/03/25 05:13 25 MLS/HR Miscellaneous Medication (Lactulose ) 30 ml AD PRN PO OTHER [SEE ORDER COMMENTS] 07/03/25 18:00 07/03/25 18:09 DC Ondansetron HCl (zoFRAN 4MG TABLET) 4 mg TID PRN PO NAUSEA 07/03/25 18:00 08/02/25 17:59 Ondansetron HCl (zoFRAN 4MG INJ) 4 mg Q6H PRN IV NAUSEA/VOMITING IF NPO 07/02/25 23:00 08/01/25 22:59 07/03/25 11:01 4 MG Pantoprazole Sodium (PROTonix 40MG INJ) 40 mg BID IVP 07/03/25 21:00 08/02/25 20:59 07/07/25 09:21 40 MG Pantoprazole Sodium (PROTonix 40MG TAB) 40 mg DAILY PO 07/03/25 09:00 07/03/25 17:47 DC Piperacillin Sod/ Tazobactam Sod (Zosyn 3.375gm+NS 50ml) 3.375 gm Q8H IV 07/04/25 13:00 07/14/25 12:59 07/07/25 05:16 3.375 GM Rifaximin (Xifaxan) 550 mg BID PO 07/03/25 09:00 08/02/25 08:59 07/07/25 09:20 550 MG Sodium Chloride 1,000 ml @ 100 mls/hr Q10H STAT IV 07/02/25 19:52 07/03/25 05:51 DC 07/02/25 20:39 100 MLS/HR Spironolactone (Aldactone 25mg) 25 mg DAILY PO 07/03/25 09:00 08/02/25 08:59 07/07/25 09:21 25 MG Thiamine HCl (Vitamin B-1) 100 mg DAILY PO 07/03/25 09:00 08/02/25 08:59 07/07/25 09:20 100 MG DIAGNOSTICS / RADIOLOGY: [ ] ASSESSMENT: Acute lower GI bleed Liver cirrhosis, POA Pancytopenia, POA Precipitous drop in hemoglobin, POA CKD stage IIIB, POA Urinary tract infection, POA PLAN: Continue ceftriaxone Trend WBCs Follow-up cultures Follow infection recommendations Continue Tylenol, IV Dilaudid O2 nasal cannula as needed Monitor blood pressure Continue lactulose 20 mg b.i.d. Continue rifaximin Renal non hemodialysis diet Continue pantoprazole b.i.d. Follow up with GI No need for IV fluids Continue spironolactone Trend a.m. BMP Replete electrolytes as necessary Transfuse 1 unit PRBC DVT prophylaxis with SCDs only due to concerns for bleeding Trend a.m. CBC Full code Case was discussed with patient's nurse at bedside Attention time greater than 30 minutes [place]IA SEGURA IV, MD Jul 07, 2025 11:35
[2025-07-07 11:38] VITALS: BP 144/51; PULSE 66; RESP 16; TEMP 98
[2025-07-07 16:49] VITALS: BP 155/67; PULSE 72; RESP 16; TEMP 98.8
--- NOTE | 2025-07-07 17:38 | PN ---
INFECTIOUS DISEASE PROGRESS NOTE Date of Service: Jul 07, 2025 SUBJECTIVE: This is a 65-year-old female patient was seen at bedside in room 404. Patient is awake, alert and oriented. Patient is status post EGD day # 1. Hemoglobin still low at 7.6. Remains afebrile, temperature is 97.3. Patient has been approved for outpatient IV antibiotics with Zosyn IV for 10 days. Nursing to provide appointment time and date. PHYSICAL EXAM EYES: Anicteric. Pupils equal and reactive. HENT: No oral thrush seen, moist Oral mucosa. NECK: Supple, no JVD or thyromegaly. LUNGS: Good air entry. No rales, no rhonchi. CARDIOVASCULAR: S1, S2 regular. No murmur heard. ABDOMEN: Soft, non tender, bowel sounds present. CENTRAL NERVOUS SYSTEM: Awake, alert, oriented x 3. SKIN: No rashes, no swelling. LYMPHATICS: No peripheral lymphadenopathy. MUSCULOSKELETAL: No joint swelling, erythema or tenderness. EXTREMITIES: No cyanosis or clubbing. BACK: No deformity, no pressure ulcer. GENITOURINARY: No dysuria or hematuria. Vital Sign (Last 12 Hours) 07/07/25 07/07/25 07/07/25 07/07/25 08:00 08:00 11:38 12:57 Temp 97.5 98.1 Pulse 67 66 Resp 24 16 B/P (MAP) 146/65 144/51 141/66 Pulse Ox 96 97 94 O2 Delivery Room Air* Room Air Room Air O2 Flow Rate 0 FiO2 21 21 07/07/25 16:49 Temp 98.8 Pulse 72 Resp 16 B/P (MAP) 155/67 Pulse Ox 95 O2 Delivery Room Air FiO2 21 Intake & Output (last 24hrs) 07/06/25 07/06/25 07/07/25 15:00 23:00 07:00 Intake Total 0 ml 100 ml 100.0 ml Output Total 200 ml 200 ml Balance 0 ml -100 ml -100.0 ml LABS: Laboratory: Test 07/07/25 16:26 07/07/25 03:40 07/06/25 03:27 Range/Units Whole Blood Glucose 170 H 70-110 MG/DL Bedside Glucose Comment Notified Nurse White Blood Count 2.9 L 4.8-10.8 K/uL Red Blood Count 2.73 L 4.00-5.50 MIL/uL Hemoglobin 7.6 L 12.0-16.0 g/dL Hematocrit 23.1 L 36-48 % Mean Corpuscular Volume 84.6 79-99 fL Mean Corpuscular Hemoglobin 27.8 27.0-33.0 pg Mean Corpuscular Hemoglobin Concent 32.9 32.0-36.0 g/dL Red Cell Distribution Width 14.6 11.0-15.5 % Platelet Count 70 L 130-400 K/uL Mean Platelet Volume 9.9 7.5-10.5 fL Immature Granulocyte % (Auto) 0.3 0-1 % Neutrophils (%) (Auto) 51.8 40.0-77.0 % Lymphocytes (%) (Auto) 32.3 21.0-51.0 % Monocytes (%) (Auto) 7.3 3.0-13.0 % Eosinophils (%) (Auto) 8.0 0.0-8.0 % Basophils (%) (Auto) 0.3 0.0-5.0 % Neutrophils # (Auto) 1.5 L 1.8-7.7 K/uL Lymphocytes # (Auto) 0.9 L 1.0-4.8 K/uL Monocytes # (Auto) 0.2 0.1-1.0 K/uL Eosinophils # (Auto) 0.23 0.00-0.70 K/uL Basophils # (Auto) 0.01 0.00-0.20 K/uL Absolute Immature Granulocyte (auto 0.01 0-1 K/uL Nucleated Red Blood Cells 0.0 0.0-0.19 % Sodium Level 138 136-145 mmol/L Potassium Level 4.3 3.5-5.1 mmol/L Chloride Level 110 101-111 mmol/L Carbon Dioxide Level 23 21-32 mmol/L Blood Urea Nitrogen 22 H 7-18 mg/dL Creatinine 1.4 H 0.5-1.0 mg/dL Glomerular Filtration Rate Calc 41 >90 mL/min Random Glucose 133 H 70-105 mg/dL Total Calcium 7.3 L 8.5-10.1 mg/dL Magnesium Level 1.90 1.80-2.40 mg/dL Total Bilirubin 0.4 0.2-1.0 mg/dL Aspartate Amino Transf (AST/SGOT) 31 10-37 U/L Alanine Aminotransferase (ALT/SGPT) 17 12-78 U/L Alkaline Phosphatase 185 H 50-136 U/L Total Protein 5.1 L 6.0-8.3 g/dL Albumin 1.6 L 3.5-5.0 g/dL Segmented Neutrophils % 65 40-70 % Band Neutrophils % 2 0-2 % Lymphocytes % (Manual) 21 L 22-44 % Monocytes % (Manual) 9 2-9 % Eosinophils % (Manual) 3 1-6 % ASSESSMENT: Urinary tract infection with ESBL E coli. Anemia requiring blood transfusion, s/p EGD. Thrombocytopenia. Acute renal failure. Liver cirrhosis. Diabetes mellitus. History of left nephrectomy. PLAN: Continue Zosyn. Patient has been approved to [facility] for outpatient IV antibiotics with Zosyn for 10 days. This case was reviewed and discussed with my supervising physician Dr. Kennedy and the above assessment and plan was formulated and agreed upon. ATTESTATION BY PHYSICIAN I have seen and examined the patient. I reviewed the documentation, medical decision making, and treatment plan as noted by the mid-level provider above. I agree with the findings and plan of care. FRED KENNEDY MD, [facility] Jul 07, 2025 17:38
[2025-07-07 20:00] VITALS: BP 140/67; PULSE 69; RESP 18; TEMP 98.2
[2025-07-08] VITALS (8 sets, daily range): BP systolic 130–153; BP diastolic 51–71; PULSE 61–68; RESP 14–20; TEMP 97.3–98.2; O2SAT 96
--- NOTE | 2025-07-08 15:45 | DS ---
Discharge Summary Hospital Course Summary: disregard this note Assessment/Plan: ASSESSMENT: Acute lower GI bleed Liver cirrhosis, POA Pancytopenia, POA Precipitous drop in hemoglobin, POA CKD stage IIIB, POA Urinary tract infection, POA PLAN: Continue ceftriaxone Trend WBCs Follow-up cultures Follow infection recommendations Continue Tylenol, IV Dilaudid O2 nasal cannula as needed Monitor blood pressure Continue lactulose 20 mg b.i.d. Continue rifaximin Renal non hemodialysis diet Continue pantoprazole b.i.d. Follow up with GI No need for IV fluids Continue spironolactone Trend a.m. BMP Replete electrolytes as necessary Transfuse 1 unit PRBC DVT prophylaxis with SCDs only due to concerns for bleeding Trend a.m. CBC Full code Case was discussed with patient's nurse at bedside Attention time greater than 30 minutes Home Medications: Active Scripts [Zosyn 3.375GM+Ns 50ML] 3.375 GM/50 ML IV.SOLN No Conflict Check, 3.375 GM IV Q8H for 10 Days, #1 0 Refills Prov:INDIA SEGURA IV, MD 07/08/25 Rifaximin (Xifaxan) 550 Mg Tablet, 550 MG PO BID, #60 TAB Prov:INDIA SEGURA IV, MD 07/08/25 Carvedilol (Coreg) 3.125 Mg Tablet, 3.125 MG PO BID, #60 TAB Prov:INDIA SEGURA IV, MD 07/08/25 Pantoprazole Sodium (Protonix) 40 Mg Tablet.dr, 40 MG PO BID for 60 Days, #120 TAB Prov:LAURA FOX PAC 12/10/24 Reported Medications Amlodipine Besylate (Amlodipine Besylate) 2.5 Mg Tablet, 2.5 MG PO HS, TAB 07/03/25 Lactulose (Lactulose) 10 Gram/15 Ml Solution, 30 ML PO AD PRN for OTHER [SEE ORDER COMMENTS], #900 ML 0 Refills AMMONIA 07/03/25 Ondansetron HCl (Ondansetron HCl) 4 Mg Tablet, 4 MG PO TID PRN for NAUSEA, TAB 07/03/25 Furosemide (Furosemide) 20 Mg Tablet, 2 TAB PO HS for 30 Days, #30 TAB 0 Refills 05/16/25 Spironolactone (Spironolactone) 25 Mg Tablet, 25 MG PO DAILY, TAB 05/16/25 Insulin Degludec (Tresiba) 100 Unit/Ml Vial, 10 UNIT SQ BID, VIAL 12/08/24 Discontinued Scripts Nitrofurantoin/Nitrofuran Mac (Macrobid) 100 Mg Cap, 1 CAP PO BID for 7 Days, #14 CAP 0 Refills Prov:JOSÉ MIGUEL DENNEY [employer]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
--- NOTE | 2025-07-08 16:51 | PN ---
INFECTIOUS DISEASE PROGRESS NOTE Date of Service: Jul 08, 2025 SUBJECTIVE: This is a 65-year-old female patient was seen at bedside in room 404. Patient is awake, alert and oriented x3. Patient is status post EGD with findings of esophageal varices with no bleeding. No reports of nausea or vomiti ng this morning. No fever, temperature is 97.7. Patient continues on Zosyn IV every 8 hours. From Infectious Disease standpoint patient can be discharged today after the noon dose of the Zosyn and care follow up with good y[facility] tomorrow morning.. PHYSICAL EXAM EYES: Anicteric. Pupils equal and reactive. HENT: No oral thrush seen, moist Oral mucosa. NECK: Supple, no JVD or thyromegaly. LUNGS: Good air entry. No rales, no rhonchi. CARDIOVASCULAR: S1, S2 regular. No murmur heard. ABDOMEN: Soft, non tender, bowel sounds present. CENTRAL NERVOUS SYSTEM: Awake, alert, oriented x 3. SKIN: No rashes, no swelling. LYMPHATICS: No peripheral lymphadenopathy. MUSCULOSKELETAL: No joint swelling, erythema or tenderness. EXTREMITIES: No cyanosis or clubbing. BACK: No deformity, no pressure ulcer. GENITOURINARY: No dysuria or hematuria. Vital Sign (Last 12 Hours) 07/08/25 07/08/25 07/08/25 07/08/25 07:46 07:58 08:56 11:49 Temp 97.3 97.7 Pulse 61 64 Resp 14 14 B/P (MAP) 153/71 152/71 130/53 Pulse Ox 99 96 96 O2 Delivery Room Air Room Air* Room Air O2 Flow Rate 0 FiO2 21 Intake & Output (last 24hrs) 07/07/25 07/07/25 07/08/25 15:00 23:00 07:00 Intake Total 480 ml 240 ml 50.0 ml Output Total 500 ml 250 ml Balance -20 ml -10 ml 50.0 ml LABS: Laboratory: Test 07/08/25 15:49 07/07/25 16:26 07/07/25 03:40 Range/Units Whole Blood Glucose 145 H 70-110 MG/DL Bedside Glucose Comment Notified Nurse White Blood Count 2.9 L 4.8-10.8 K/uL Red Blood Count 2.73 L 4.00-5.50 MIL/uL Hemoglobin 7.6 L 12.0-16.0 g/dL Hematocrit 23.1 L 36-48 % Mean Corpuscular Volume 84.6 79-99 fL Mean Corpuscular Hemoglobin 27.8 27.0-33.0 pg Mean Corpuscular Hemoglobin Concent 32.9 32.0-36.0 g/dL Red Cell Distribution Width 14.6 11.0-15.5 % Platelet Count 70 L 130-400 K/uL Mean Platelet Volume 9.9 7.5-10.5 fL Immature Granulocyte % (Auto) 0.3 0-1 % Neutrophils (%) (Auto) 51.8 40.0-77.0 % Lymphocytes (%) (Auto) 32.3 21.0-51.0 % Monocytes (%) (Auto) 7.3 3.0-13.0 % Eosinophils (%) (Auto) 8.0 0.0-8.0 % Basophils (%) (Auto) 0.3 0.0-5.0 % Neutrophils # (Auto) 1.5 L 1.8-7.7 K/uL Lymphocytes # (Auto) 0.9 L 1.0-4.8 K/uL Monocytes # (Auto) 0.2 0.1-1.0 K/uL Eosinophils # (Auto) 0.23 0.00-0.70 K/uL Basophils # (Auto) 0.01 0.00-0.20 K/uL Absolute Immature Granulocyte (auto 0.01 0-1 K/uL Nucleated Red Blood Cells 0.0 0.0-0.19 % Sodium Level 138 136-145 mmol/L Potassium Level 4.3 3.5-5.1 mmol/L Chloride Level 110 101-111 mmol/L Carbon Dioxide Level 23 21-32 mmol/L Blood Urea Nitrogen 22 H 7-18 mg/dL Creatinine 1.4 H 0.5-1.0 mg/dL Glomerular Filtration Rate Calc 41 >90 mL/min Random Glucose 133 H 70-105 mg/dL Total Calcium 7.3 L 8.5-10.1 mg/dL Magnesium Level 1.90 1.80-2.40 mg/dL Total Bilirubin 0.4 0.2-1.0 mg/dL Aspartate Amino Transf (AST/SGOT) 31 10-37 U/L Alanine Aminotransferase (ALT/SGPT) 17 12-78 U/L Alkaline Phosphatase 185 H 50-136 U/L Total Protein 5.1 L 6.0-8.3 g/dL Albumin 1.6 L 3.5-5.0 g/dL ASSESSMENT: Urinary tract infection with ESBL E coli. Anemia requiring blood transfusion, s/p EGD with findings of esophageal varices with no bleeding. Thrombocytopenia. Acute renal failure. Liver cirrhosis. Diabetes mellitus. History of left nephrectomy. PLAN: Continue Zosyn. Patient has been approved to [facility] for outpatient IV antibiotics with Zosyn for 10 days. This case was reviewed and discussed with my supervising physician Dr. Kennedy and the above assessment and plan was formulated and agreed upon. ATTESTATION BY PHYSICIAN I have seen and examined the patient. I reviewed the documentation, medical decision making, and treatment plan as noted by the mid-level provider above. I agree with the findings and plan of care. FRED KENNEDY MD, [facility] Jul 08, 2025 16:51
--- NOTE | 2025-07-08 19:06 | NUR ---
CT EXAM DELAY: LEFT MESSAGE FOR NURSE REGARDING PATIENT NEEDING TO BE BROUGHT TO CT DEPT FOR CT EXAM.
[2025-07-09 03:53] VITALS: BP 135/56; PULSE 74; RESP 16; TEMP 98.1
[2025-07-09 04:31] LABS: NUCLEATED RED BLOOD CELLS 0.0 % (0.0-0.19); PLATELET COUNT (AUTO) 65 K/uL (130-400); RED BLOOD CELL COUNT(AUTO) 2.66 MIL/uL (4.00-5.50); RED CELL DISTRIBUTION WIDTH 14.6 % (11.0-15.5); WHITE BLOOD COUNT (AUTO) 3.0 K/uL (4.8-10.8)
[2025-07-09 04:53] LABS: CREATININE 1.5 mg/dL (0.5-1.0); GLOMERULAR FILTR. RATE CALC 38.0 mL/min (>90); GLUCOSE,RANDOM 136.0 mg/dL (70-105); SODIUM SERUM 137.0 mmol/L (136-145); UREA NITROGEN, BLOOD 28.0 mg/dL (7-18)
[2025-07-09 05:28] LABS: BASOPHILS % (MANUAL) 1 % (0-2); EOSINOPHILS % (MANUAL) 3 % (1-6); LYMPHOCYTES % (MANUAL) 22 % (22-44); MONOCYTES % (MANUAL) 3 % (2-9); PLATELET MORPHOLOGY COMMENT DECREASED; SEGMENTED NEUTROPHILS % 71 % (40-70)
[2025-07-09 05:29] LABS: MAN.DIFF COMMENT-IMPRESSION MANUAL DIFFERENTIAL
[2025-07-09 07:53] VITALS: BP 149/63; PULSE 67; RESP 18; TEMP 98.1
[2025-07-09 08:30] VITALS: O2SAT 96; O2SAT 97
--- NOTE | 2025-07-09 10:52 | PN ---
GASTROENTEROLOGY PROGRESS NOTE Date of Visit: Jul 09, 2025 Time of Visit: 10:52 Events / Notes: This is a 65-year-old female with past medical history of cirrhosis, anemia, type 2 diabetes and hypertension who presented due to abdominal pain. She was found to be anemic. We were consulted due to liver cirrhosis. Review of Systems: CONSTITUTIONAL: No malaise or change in sensation of wellbeing. ENMT: No rhinorrhea, otorrhea, sinus pain, ear ache. CARDIOVASCULAR: No angina, palpitations, orthopnea or paroxysmal dyspnea. RESPIRATORY: No SOB. GASTROINTESTINAL: No abdominal pain, nausea, vomiting, diarrhea, hematemesis, melena or change in the patient's habitual bowel movements consistency/number. GENITOURINARY: No dysuria, hematuria or change in bladder continence. MUSCULOSKELETAL: No new muscle pain or decrease in muscular strength. No new joint swelling, redness or tenderness. SKIN: No new rash. Physical Exam: GEN: Awake, alert, oriented in person, time and place, and in no acute distress. HEENT: No sinus tenderness. Tympanic membranes were not examined. No rhinorrhea. Oral pharyngeal mucosa is pink, moist and within normal limits. Neck is supple with no cervical lymphadenopathy, thyromegaly or JVD. CHEST: Inspection, palpation and percussion of the chest were unremarkable. Lung auscultation revealed normal breath sounds bilaterally. CARDIAC: PMI is within normal limits. Heart sounds are regular. Normal S1, S2. No gallop or murmur. ABD: Soft, non-tender and not distended. No peritoneal signs on palpation. No organomegaly. Normal bowel sounds. EXT: No cyanosis or clubbing. No edema. SKIN: Intact. No rashes. JOINTS: No evidence of synovitis or acute arthritis. NEURO: Alert and oriented to name, place and person. Cranial nerve examination is unremarkable. No focal motor deficits. Normal speech. Gait is normal. Strength is normal. Vital Signs (last 8hr) Date Time Temp Pulse Resp B/P (MAP) Pulse Ox O2 Delivery O2 Flow Rate FiO2 07/09/25 08:49 149/63 07/09/25 07:53 98.1 67 18 149/63 96 Room Air 07/09/25 03:53 98.1 74 16 135/56 95 Room Air Laboratory: [ ] Laboratory: Test 07/09/25 05:13 07/09/25 03:58 07/07/25 16:26 Range/Units Whole Blood Glucose 128 H 70-110 MG/DL White Blood Count 3.0 L 4.8-10.8 K/uL Red Blood Count 2.66 L 4.00-5.50 MIL/uL Hemoglobin 7.2 L 12.0-16.0 g/dL Hematocrit 22.5 L 36-48 % Mean Corpuscular Volume 84.6 79-99 fL Mean Corpuscular Hemoglobin 27.1 27.0-33.0 pg Mean Corpuscular Hemoglobin Concent 32.0 32.0-36.0 g/dL Red Cell Distribution Width 14.6 11.0-15.5 % Platelet Count 65 L 130-400 K/uL Mean Platelet Volume 10.3 7.5-10.5 fL Segmented Neutrophils % 71 H 40-70 % Lymphocytes % (Manual) 22 22-44 % Monocytes % (Manual) 3 2-9 % Eosinophils % (Manual) 3 1-6 % Basophils % (Manual) 1 0-2 % Nucleated Red Blood Cells 0.0 0.0-0.19 % Differential Comment MANUAL DIFFERENTIAL White Cell Morphology Comment Platelet Morphology Comment DECREASED Red Blood Cell Morphology HYPOCHROM CELLS 1+ Sodium Level 137 136-145 mmol/L Potassium Level 4.0 3.5-5.1 mmol/L Chloride Level 108 101-111 mmol/L Carbon Dioxide Level 22 21-32 mmol/L Blood Urea Nitrogen 28 H 7-18 mg/dL Creatinine 1.5 H 0.5-1.0 mg/dL Glomerular Filtration Rate Calc 38 >90 mL/min Random Glucose 136 H 70-105 mg/dL Total Calcium 7.8 L 8.5-10.1 mg/dL Bedside Glucose Comment Notified Nurse Current Medications Medications (Trade) Dose Ordered Sig/Shazia Route PRN Reason Start Time Stop Time Status Last Admin Dose Admin Acetaminophen (TYLenol 325MG TAB) 650 mg Q6H PRN PO TEMPERATURE GREATER THAN 101.5 07/02/25 23:00 08/01/25 22:59 Acetaminophen (TYLenol 325MG TAB) 650 mg Q6H PRN PO MILD PAIN (1-3) 07/03/25 14:30 08/02/25 14:29 07/07/25 21:30 650 MG Amlodipine Besylate (NorvASC 2.5MG TAB) 2.5 mg HS PO 07/03/25 21:00 08/02/25 20:59 07/08/25 20:44 2.5 MG Carvedilol (Coreg 3.125MG) 3.125 mg BID PO 07/07/25 13:00 08/06/25 12:59 07/09/25 08:49 3.125 MG Ceftriaxone Sodium (ROCEphine 1G INJ) 1 gm Q24H IVPB 07/02/25 23:00 07/04/25 13:00 DC 07/03/25 23:04 1 GM Folic Acid (FOLic ACID 1 MG TABLET) 1 mg DAILY PO 07/03/25 09:00 08/02/25 08:59 07/09/25 08:49 1 MG Furosemide (LASix 20MG TAB) 20 mg HS PO 07/03/25 21:00 08/02/25 20:59 07/08/25 20:44 20 MG Hydralazine HCl (APRESOLine 20MG INJ) 10 mg Q6H PRN IV For:SBP above 160;DBP above 90 07/02/25 23:00 08/01/25 22:59 Hydromorphone HCl (DiLAUDid 1MG INJ) 0.25 mg Q4H PRN IVP SEVERE PAIN (7-10) 07/02/25 23:00 07/07/25 22:59 DC 07/04/25 20:18 0.25 MG Insulin Human Regular (humuLIN R 100 UNIT/ML 3ML) INSULIN SLIDING SCAL... ACHS SQ 07/03/25 07:30 08/02/25 07:29 07/08/25 12:51 3 UNIT Lactulose (Constulose 20gm/ 30ml Udcup) 20 gm BID PO 07/03/25 09:00 08/02/25 08:59 Magnesium Sulfate 50 ml @ 0 mls/hr PROTOCOL PRN IV MAGNESIUM PROTOCOL 07/03/25 05:00 08/02/25 04:59 07/03/25 05:13 25 MLS/HR Miscellaneous Medication (Lactulose ) 30 ml AD PRN PO OTHER [SEE ORDER COMMENTS] 07/03/25 18:00 07/03/25 18:09 DC Ondansetron HCl (zoFRAN 4MG TABLET) 4 mg TID PRN PO NAUSEA 07/03/25 18:00 08/02/25 17:59 Ondansetron HCl (zoFRAN 4MG INJ) 4 mg Q6H PRN IV NAUSEA/VOMITING IF NPO 07/02/25 23:00 07/09/25 07:30 DC 07/03/25 11:01 4 MG Pantoprazole Sodium (PROTonix 40MG INJ) 40 mg BID IVP 07/03/25 21:00 08/02/25 20:59 07/09/25 08:50 40 MG Pantoprazole Sodium (PROTonix 40MG TAB) 40 mg DAILY PO 07/03/25 09:00 07/03/25 17:47 DC Piperacillin Sod/ Tazobactam Sod (Zosyn 3.375gm+NS 50ml) 3.375 gm Q8H IV 07/04/25 13:00 07/14/25 12:59 07/09/25 05:19 3.375 GM Rifaximin (Xifaxan) 550 mg BID PO 07/03/25 09:00 08/02/25 08:59 07/08/25 08:56 550 MG Sodium Chloride 1,000 ml @ 100 mls/hr Q10H STAT IV 07/02/25 19:52 07/03/25 05:51 DC 07/02/25 20:39 100 MLS/HR Spironolactone (Aldactone 25mg) 25 mg DAILY PO 07/03/25 09:00 08/02/25 08:59 07/09/25 08:49 25 MG Thiamine HCl (Vitamin B-1) 100 mg DAILY PO 07/03/25 09:00 08/02/25 08:59 07/09/25 08:49 100 MG Diagnostics / Radiology: [COPY/PASTE HERE IF NO REPORTS PLEASE DELETE SECTION] Assessment: GI bleed Acute blood loss anemia Cirrhosis DM Plan: Continue GI prophylaxis Advance diet as tolerated Avoid NSAIDs Antireflux measures Monitor H&H and transfuse as needed Call with questions, concerns or change in clinical status Patient to follow-up at clinic post discharge Thank you for this consult MISTI BURNS AUTOMATIC BUFFER Jul 09, 2025 10:52
[2025-07-09 12:00] VITALS: BP 129/61; PULSE 66; RESP 18; TEMP 98.2
--- NOTE | 2025-07-09 14:01 | PN ---
[facility] PROGRESS NOTE Date of Service: Jul 09, 2025 Time of Service: 13:59 SUBJECTIVE: Patient continues with IV antibiotics, she is concerned about her positive occult blood and anemia. We will be consulting Gastroenterology. Patient has been accepted to [facility] to continue with her IV antibiotics but we need to consult GI for GI bleed. 07/06/2025 patient was seen earlier patient waiting for EGD today she reports no active bleeding. We will follow EGD results. Patient is tolerating IV antibio tics no nausea no vomiting no diarrhea 07/07 no signs of active bleeding. 07/08 patient complains of tender lump to left abdomen. We will obtain CT of the abdomen and pelvis. we will cancel discharge. 07/09 CT scan results pending. If unremarkable we will discharge today to follow up with PCP and Infectious Disease for IV antibiotics. REVIEW OF SYSTEMS CONSTITUTIONAL: Denies fevers, chills, or night sweats. No unintentional weight loss reported. NEUROLOGICAL: Denies headache, amaurosis fugax, motor weakness, sensory deficit, vertigo/spinning sensation, gait abnormalities, or tremors. ENT: No hearing loss, otalgia, otorrhea, rhinitis, rhinorrhea, hoarseness, or sore throat. CARDIOVASCULAR: Denies any exertional angina, dyspnea on exertion, orthopnea, paroxysmal nocturnal dyspnea, palpitations, life-threatening arrhythmias, claudication. PULMONARY: Denies any shortness of breath, cough, phlegm/sputum, hemoptysis, pleuritic chest pain. SLEEP: Denies morning headaches, daytime somnolence or napping. Denies difficulty falling asleep, staying asleep, waking from sleep. Denies knowledge of snoring. GASTROINTESTINAL: Denies any type of dysphagia to either liquids or solids. Denies nausea, vomiting, pyrosis, early satiety, abdominal pain, diarrhea, constipation, or changes in stool consistency or caliber. Denies coffee-ground emesis, hematemesis, hematochezia, or melanotic stools. GENITOURINARY: Denies frequency, urgency, nocturia, hematuria or incontinence (Storage/Irritative symptoms.) Low urinary stream, straining to void, urinary intermittency or hesitancy, splitting of the voiding stream, terminal dribbling. ENDOCRINOLOGIC: Denies polyuria, polydipsia, polyphagia or heat/cold intolerances. HEMATOLOGIC: Denies thrombophilia/previous clots, or coagulopathy/bleeding disorders. ONCOLOGIC: Denies personal history of malignancy. DERMATOLOGIC: Denies rashes or pruritus. PSYCHIATRIC: Denies any suicidal or homicidal ideation. Denies hallucinations. PHYSICAL EXAM GENERAL APPEARANCE: The patient is awake, alert, and oriented, in no acute cardiopulmonary distress. NEUROLOGICAL: Cranial nerves II-XII grossly intact. Motor is 5/5 in bilateral upper and lower extremities proximal to distal. No sensory deficits. HEENT: Face is symmetric. Pupils are equal and reactive. Extraocular movements are intact. NECK: Supple. No JVD. No thyromegaly. No submental, submandibular, pre- /postauricular, occipital or supraclavicular lymphadenopathy. CHEST: Normal chest expansion. No Telemetry. LUNGS: Absence of any rales, rhonchi or any wheezing. CARDIOVASCULAR: Regular. S1 and S2 normal. No appreciable rubs, murmurs or gallops. ABDOMEN: Soft, nontender, and nondistended. There is no rebound, voluntary guarding, or rigidity. : Deferred. No Mcmillan. EXTREMITIES: Non-edematous and not cyanotic. No clubbing. Good capillary refill. SKIN: No skin breakdown. Vital Signs (last 8hr) Date Time Temp Pulse Resp B/P (MAP) Pulse Ox O2 Delivery O2 Flow Rate FiO2 07/09/25 12:00 98.2 66 18 129/61 97 Room Air 07/09/25 08:49 149/63 07/09/25 07:53 98.1 67 18 149/63 96 Room Air LABS: Laboratory: Test 07/09/25 10:57 07/09/25 03:58 07/07/25 16:26 Range/Units Whole Blood Glucose 148 H 70-110 MG/DL White Blood Count 3.0 L 4.8-10.8 K/uL Red Blood Count 2.66 L 4.00-5.50 MIL/uL Hemoglobin 7.2 L 12.0-16.0 g/dL Hematocrit 22.5 L 36-48 % Mean Corpuscular Volume 84.6 79-99 fL Mean Corpuscular Hemoglobin 27.1 27.0-33.0 pg Mean Corpuscular Hemoglobin Concent 32.0 32.0-36.0 g/dL Red Cell Distribution Width 14.6 11.0-15.5 % Platelet Count 65 L 130-400 K/uL Mean Platelet Volume 10.3 7.5-10.5 fL Segmented Neutrophils % 71 H 40-70 % Lymphocytes % (Manual) 22 22-44 % Monocytes % (Manual) 3 2-9 % Eosinophils % (Manual) 3 1-6 % Basophils % (Manual) 1 0-2 % Nucleated Red Blood Cells 0.0 0.0-0.19 % Differential Comment MANUAL DIFFERENTIAL White Cell Morphology Comment Platelet Morphology Comment DECREASED Red Blood Cell Morphology HYPOCHROM CELLS 1+ Sodium Level 137 136-145 mmol/L Potassium Level 4.0 3.5-5.1 mmol/L Chloride Level 108 101-111 mmol/L Carbon Dioxide Level 22 21-32 mmol/L Blood Urea Nitrogen 28 H 7-18 mg/dL Creatinine 1.5 H 0.5-1.0 mg/dL Glomerular Filtration Rate Calc 38 >90 mL/min Random Glucose 136 H 70-105 mg/dL Total Calcium 7.8 L 8.5-10.1 mg/dL Bedside Glucose Comment Notified Nurse Current Medications Medications (Trade) Dose Ordered Sig/Shazia Route PRN Reason Start Time Stop Time Status Last Admin Dose Admin Acetaminophen (TYLenol 325MG TAB) 650 mg Q6H PRN PO TEMPERATURE GREATER THAN 101.5 07/02/25 23:00 08/01/25 22:59 Acetaminophen (TYLenol 325MG TAB) 650 mg Q6H PRN PO MILD PAIN (1-3) 07/03/25 14:30 08/02/25 14:29 07/07/25 21:30 650 MG Amlodipine Besylate (NorvASC 2.5MG TAB) 2.5 mg HS PO 07/03/25 21:00 08/02/25 20:59 07/08/25 20:44 2.5 MG Carvedilol (Coreg 3.125MG) 3.125 mg BID PO 07/07/25 13:00 08/06/25 12:59 07/09/25 08:49 3.125 MG Ceftriaxone Sodium (ROCEphine 1G INJ) 1 gm Q24H IVPB 07/02/25 23:00 07/04/25 13:00 DC 07/03/25 23:04 1 GM Folic Acid (FOLic ACID 1 MG TABLET) 1 mg DAILY PO 07/03/25 09:00 08/02/25 08:59 07/09/25 08:49 1 MG Furosemide (LASix 20MG TAB) 20 mg HS PO 07/03/25 21:00 08/02/25 20:59 07/08/25 20:44 20 MG Hydralazine HCl (APRESOLine 20MG INJ) 10 mg Q6H PRN IV For:SBP above 160;DBP above 90 07/02/25 23:00 08/01/25 22:59 Hydromorphone HCl (DiLAUDid 1MG INJ) 0.25 mg Q4H PRN IVP SEVERE PAIN (7-10) 07/02/25 23:00 07/07/25 22:59 DC 07/04/25 20:18 0.25 MG Insulin Human Regular (humuLIN R 100 UNIT/ML 3ML) INSULIN SLIDING SCAL... ACHS SQ 07/03/25 07:30 08/02/25 07:29 07/08/25 12:51 3 UNIT Lactulose (Constulose 20gm/ 30ml Udcup) 20 gm BID PO 07/03/25 09:00 08/02/25 08:59 Magnesium Sulfate 50 ml @ 0 mls/hr PROTOCOL PRN IV MAGNESIUM PROTOCOL 07/03/25 05:00 08/02/25 04:59 07/03/25 05:13 25 MLS/HR Miscellaneous Medication (Lactulose ) 30 ml AD PRN PO OTHER [SEE ORDER COMMENTS] 07/03/25 18:00 07/03/25 18:09 DC Ondansetron HCl (zoFRAN 4MG TABLET) 4 mg TID PRN PO NAUSEA 07/03/25 18:00 08/02/25 17:59 Ondansetron HCl (zoFRAN 4MG INJ) 4 mg Q6H PRN IV NAUSEA/VOMITING IF NPO 07/02/25 23:00 07/09/25 07:30 DC 07/03/25 11:01 4 MG Pantoprazole Sodium (PROTonix 40MG INJ) 40 mg BID IVP 07/03/25 21:00 08/02/25 20:59 07/09/25 08:50 40 MG Pantoprazole Sodium (PROTonix 40MG TAB) 40 mg DAILY PO 07/03/25 09:00 07/03/25 17:47 DC Piperacillin Sod/ Tazobactam Sod (Zosyn 3.375gm+NS 50ml) 3.375 gm Q8H IV 07/04/25 13:00 07/14/25 12:59 07/09/25 05:19 3.375 GM Rifaximin (Xifaxan) 550 mg BID PO 07/03/25 09:00 08/02/25 08:59 07/08/25 08:56 550 MG Sodium Chloride 1,000 ml @ 100 mls/hr Q10H STAT IV 07/02/25 19:52 07/03/25 05:51 DC 07/02/25 20:39 100 MLS/HR Spironolactone (Aldactone 25mg) 25 mg DAILY PO 07/03/25 09:00 08/02/25 08:59 07/09/25 08:49 25 MG Thiamine HCl (Vitamin B-1) 100 mg DAILY PO 07/03/25 09:00 08/02/25 08:59 07/09/25 08:49 100 MG DIAGNOSTICS / RADIOLOGY: [ ] ASSESSMENT: Acute lower GI bleed Liver cirrhosis, POA Pancytopenia, POA Precipitous drop in hemoglobin, POA CKD stage IIIB, POA Urinary tract infection, POA PLAN: Continue ceftriaxone Trend WBCs Follow-up cultures Follow infection recommendations Continue Tylenol, IV Dilaudid O2 nasal cannula as needed Monitor blood pressure Continue lactulose 20 mg b.i.d. Continue rifaximin Renal non hemodialysis diet Continue pantoprazole b.i.d. Follow up with GI No need for IV fluids Continue spironolactone Trend a.m. BMP Replete electrolytes as necessary Transfuse 1 unit PRBC DVT prophylaxis with SCDs only due to concerns for bleeding Trend a.m. CBC Full code Case was discussed with patient's nurse at bedside Attention time greater than 30 minutes INDIA SEGURA IV, MD Jul 09, 2025 14:01
[2025-07-09 16:02] VITALS: BP 131/59; PULSE 68; RESP 20; TEMP 98.2
--- NOTE | 2025-07-09 19:26 | PN ---
INFECTIOUS DISEASE PROGRESS NOTE Date of Service: Jul 09, 2025 SUBJECTIVE: This is a 65-year-old female patient was seen at bedside in room 404. Patient had a CT of the abdomen and pelvis done last night due to experiencing abdominal pain and currently pending radiology interpretation. The hemoglobin dropped to 7.2 this morning. Abdomen is breading machine tender on the right side. No no nausea or vomiting. No fever, temperature is 98.2. Will continue on Zosyn IV. PHYSICAL EXAM EYES: Anicteric. Pupils equal and reactive. HENT: No oral thrush seen, moist Oral mucosa. NECK: Supple, no JVD or thyromegaly. LUNGS: Good air entry. No rales, no rhonchi. CARDIOVASCULAR: S1, S2 regular. No murmur heard. ABDOMEN: Soft, bowel sounds present. Tenderness on palpation. CENTRAL NERVOUS SYSTEM: Awake, alert, oriented x 3. SKIN: No rashes, no swelling. LYMPHATICS: No peripheral lymphadenopathy. MUSCULOSKELETAL: No joint swelling, erythema or tenderness. EXTREMITIES: No cyanosis or clubbing. BACK: No deformity, no pressure ulcer. GENITOURINARY: No dysuria or hematuria. Vital Sign (Last 12 Hours) 07/09/25 07/09/25 07/09/25 07/09/25 07:53 08:30 08:49 12:00 Temp 98.1 98.2 Pulse 67 66 Resp 18 18 B/P (MAP) 149/63 149/63 129/61 Pulse Ox 96 96 97 O2 Delivery Room Air Room Air* Room Air O2 Flow Rate 0 FiO2 21 07/09/25 16:02 Temp 98.2 Pulse 68 Resp 20 B/P (MAP) 131/59 Pulse Ox 97 O2 Delivery Room Air Intake & Output (last 24hrs) 07/08/25 07/08/25 07/09/25 15:00 23:00 07:00 Intake Total 480 ml 640.0 ml 50.0 ml Output Total 1100 ml 300 ml Balance -620 ml 340.0 ml 50.0 ml LABS: Laboratory: Test 07/09/25 15:55 07/09/25 03:58 Range/Units Whole Blood Glucose 184 H 70-110 MG/DL Bedside Glucose Comment Notified Nurse White Blood Count 3.0 L 4.8-10.8 K/uL Red Blood Count 2.66 L 4.00-5.50 MIL/uL Hemoglobin 7.2 L 12.0-16.0 g/dL Hematocrit 22.5 L 36-48 % Mean Corpuscular Volume 84.6 79-99 fL Mean Corpuscular Hemoglobin 27.1 27.0-33.0 pg Mean Corpuscular Hemoglobin Concent 32.0 32.0-36.0 g/dL Red Cell Distribution Width 14.6 11.0-15.5 % Platelet Count 65 L 130-400 K/uL Mean Platelet Volume 10.3 7.5-10.5 fL Segmented Neutrophils % 71 H 40-70 % Lymphocytes % (Manual) 22 22-44 % Monocytes % (Manual) 3 2-9 % Eosinophils % (Manual) 3 1-6 % Basophils % (Manual) 1 0-2 % Nucleated Red Blood Cells 0.0 0.0-0.19 % Differential Comment MANUAL DIFFERENTIAL White Cell Morphology Comment Platelet Morphology Comment DECREASED Red Blood Cell Morphology HYPOCHROM CELLS 1+ Sodium Level 137 136-145 mmol/L Potassium Level 4.0 3.5-5.1 mmol/L Chloride Level 108 101-111 mmol/L Carbon Dioxide Level 22 21-32 mmol/L Blood Urea Nitrogen 28 H 7-18 mg/dL Creatinine 1.5 H 0.5-1.0 mg/dL Glomerular Filtration Rate Calc 38 >90 mL/min Random Glucose 136 H 70-105 mg/dL Total Calcium 7.8 L 8.5-10.1 mg/dL ASSESSMENT: Urinary tract infection with ESBL E coli. Anemia requiring blood transfusion, s/p EGD with findings of esophageal varices with no bleeding. Thrombocytopenia. Acute renal failure. Liver cirrhosis. Diabetes mellitus. History of left nephrectomy. Abdominal pain. PLAN: Continue Zosyn. Patient has been approved to [facility] for outpatient IV antibiotics with Zosyn for [address] of the abdomen and pelvis interpretation. This case was reviewed and discussed with my supervising physician Dr. Kennedy and the above assessment and plan was formulated and agreed upon. ATTESTATION BY PHYSICIAN I have seen and examined the patient. I reviewed the documentation, medical decision making, and treatment plan as noted by the mid-level provider above. I agree with the findings and plan of care. FRED KENNEDY MD, M[facility]TA [facility] Jul 09, 2025 19:26
--- NOTE | 2025-07-09 19:53 | HMCIMG ---
EXAMINATION: CT Abdomen and Pelvis Without IV contrast CLINICAL HISTORY: LUMP TO LEFT QUADRANT. COMPARISON: CT abdomen and pelvis dated Apr 03, 2025. TECHNIQUE: Axial computed tomography images of the abdomen and pelvis without intravenous contrast. CONTRAST: No IV contrast. FINDINGS: LUNG BASES: Trace bilateral pleural effusions. The lung bases appear clear. Mild cardiomegaly. LIVER: Small size 11cm. Nodular contour concerning cirrhosis. GALLBLADDER AND BILE DUCTS: Surgically absent gallbladder. No intrahepatic biliary ductal dilatation. Mild prominence of the common bile duct up to 1.2 cm, showing smooth distal tapering. PANCREAS: Unremarkable size, but mild fluid is noted around the head and uncinate process region, which could be related to anasarca. SPLEEN: Stable splenomegaly measuring 16 cm in craniocaudal dimension. ADRENAL GLANDS: Unremarkable. KIDNEYS, URETERS, AND BLADDER: Post left nephrectomy. Stable small right renal cyst, size 19mm. No right hydronephrosis or hydroureter. No urinary calculi are seen. STOMACH AND BOWEL: Occasional colonic diverticulosis without diverticulitis. No evidence of bowel obstruction. No findings suggesting enteritis or colitis. Long segment circumferential mural thickening in the sigmoid colon is likely a sequela of chronic colitis versus diverticulitis. Scarring in the anorectal region needs clinical correlation to rule out perianal sinus tracts. APPENDIX: No evidence of acute appendicitis. PERITONEUM: Small to medium ascites. Generalized anasarca. No free air. LYMPH NODES: No lymphadenopathy is evident. REPRODUCTIVE: Post-hysterectomy. VASCULATURE: Atheromatous calcifications in the aorta without evidence of aneurysm. BONES: Multilevel mild degenerative changes in the spine. No acute osseous pathology. Lumbosacral transitional vertebra with partial lumbarization of S1. Soft tissues: Tiny fat-containing right inguinal hernia. There is significant subcutaneous edema in the left lateral abdominal wall, which could be responsible for the clinically detected lump. Part of the left abdominal wall is not included in the field of view. IMPRESSION: Significant subcutaneous edema in the left lateral abdominal wall, suggesting cellulitis, which could be responsible for the clinically detected lump. No drainable fluid collection or abscess is evident. Scarring in the anorectal region needs clinical correlation to rule out perianal sinus tracts. Redemonstrated liver cirrhosis and mild splenomegaly. Stable small right renal cyst. Occasional colonic diverticulosis without evidence of diverticulitis. Sequel of chronic colitis versus diverticulitis in the sigmoid colon. Minimal bilateral pleural effusions. Small to medium ascites. /[place]
[2025-07-09 20:00] VITALS: BP 133/65; PULSE 65; RESP 18; TEMP 98.3; O2SAT 97
[2025-07-10] VITALS: BP 151/64; PULSE 70; RESP 18; TEMP 98.5
[2025-07-10 04:00] VITALS: BP 100/64; PULSE 62; RESP 18; TEMP 98.4
[2025-07-10 08:00] VITALS: BP 147/61; PULSE 71; RESP 18; TEMP 98.2
[2025-07-10 08:10] VITALS: O2SAT 95
[2025-07-10 12:00] VITALS: BP 112/39; PULSE 61; RESP 19; TEMP 97.9
--- NOTE | 2025-07-10 15:57 | DS ---
Discharge Summary Hospital Course Summary: [H&P: Ms. Otero is a 65-year-old female that was seen and examined today. On 07/02/2025 Patient is a good historian of personal health Patient reports that she came to the emergency department with a chief complaint of abdominal pain. Onset was two days ago. Location is all four quadrants. Duration is on and off. Character is described as a dull ache. There was no alleviating factors. There was no aggravating factors. Patient reports associated weakness, nausea, vomiting. Today in the emergency department WBCs 3.2, RBCs 2.5, hemoglobin 7.7, hematocrit 24.1, platelets 83, BUN 22, creatinine 1.3, urinalysis positive for leukocyte esterase and WBCs 20 6-50 per high- powered microscopy field, chest x-ray is unremarkable. Emergency room physician recommended patient be admitted with a diagnosis of liver cirrhosis.] 07/06/2025 patient was seen earlier patient waiting for EGD today she reports no active bleeding. We will follow EGD results. Patient is tolerating IV antibiotics no nausea no vomiting no diarrhea 07/07 no signs of active bleeding. 07/08 patient complains of tender lump to left abdomen. We will obtain CT of the abdomen and pelvis. we will cancel discharge. 07/09 CT scan results pending. If unremarkable we will discharge today to follow up with PCP and Infectious Disease for IV antibiotics. Infectious Disease Final Recommendations: ASSESSMENT: Urinary tract infection with ESBL E coli. Anemia requiring blood transfusion, s/p EGD with findings of esophageal varices with no bleeding. Thrombocytopenia. Acute renal failure. Liver cirrhosis. Diabetes mellitus. History of left nephrectomy. Abdominal pain. PLAN: Continue Zosyn. Patient will be discharged to home today and is to follow up with [facility] tomorrow for outpatient IV antibiotics with Zosyn for 10 days. Decision was made to discharge patient for outpatient IV antibiotics following GI consult. Follow up with PCP. Medication as per med rec. Assessment/Plan: ASSESSMENT: Acute lower GI bleed Liver cirrhosis, POA Pancytopenia, POA Precipitous drop in hemoglobin, POA CKD stage IIIB, POA Urinary tract infection, POA PLAN: Continue ceftriaxone Trend WBCs Follow-up cultures Follow infection recommendations Continue Tylenol, IV Dilaudid O2 nasal cannula as needed Monitor blood pressure Continue lactulose 20 mg b.i.d. Continue rifaximin Renal non hemodialysis diet Continue pantoprazole b.i.d. Follow up with GI No need for IV fluids Continue spironolactone Trend a.m. BMP Replete electrolytes as necessary Transfuse 1 unit PRBC DVT prophylaxis with SCDs only due to concerns for bleeding Trend a.m. CBC Full code Case was discussed with patient's nurse at bedside Attention time greater than 30 minutes Home Medications: Active Scripts [Zosyn 3.375GM+Ns 50ML] 3.375 GM/50 ML IV.SOLN No Conflict Check, 3.375 GM IV Q8H for 10 Days, #1 0 Refills Prov:INDIA SEGURA IV, MD 07/08/25 Rifaximin (Xifaxan) 550 Mg Tablet, 550 MG PO BID, #60 TAB Prov:INDIA SEGURA IV, MD 07/08/25 Carvedilol (Coreg) 3.125 Mg Tablet, 3.125 MG PO BID, #60 TAB Prov:INDIA SEGURA IV, MD 07/08/25 Pantoprazole Sodium (Protonix) 40 Mg Tablet.dr, 40 MG PO BID for 60 Days, #120 TAB Prov:LAURA FOX PAC 12/10/24 Reported Medications Amlodipine Besylate (Amlodipine Besylate) 2.5 Mg Tablet, 2.5 MG PO HS, TAB 07/03/25 Lactulose (Lactulose) 10 Gram/15 Ml Solution, 30 ML PO AD PRN for OTHER [SEE ORDER COMMENTS], #900 ML 0 Refills AMMONIA 07/03/25 Ondansetron HCl (Ondansetron HCl) 4 Mg Tablet, 4 MG PO TID PRN for NAUSEA, TAB 07/03/25 Furosemide (Furosemide) 20 Mg Tablet, 2 TAB PO HS for 30 Days, #30 TAB 0 Refills 05/16/25 Spironolactone (Spironolactone) 25 Mg Tablet, 25 MG PO DAILY, TAB 05/16/25 Insulin Degludec (Tresiba) 100 Unit/Ml Vial, 10 UNIT SQ BID, VIAL 12/08/24 INDIA SEGURA IV, MD Jul 10, 2025 15:56
--- NOTE | 2025-07-10 21:09 | PN ---
GASTROENTEROLOGY PROGRESS NOTE Date of Visit: Jul 10, 2025 Time of Visit: 21:09 Events / Notes: This is a 65-year-old female with past medical history of cirrhosis, anemia, type 2 diabetes and hypertension who presented due to abdominal pain. She was found to be anemic. We were consulted due to liver cirrhosis. EGD without bleeding. Review of Systems: CONSTITUTIONAL: No malaise or change in sensation of wellbeing. ENMT: No rhinorrhea, otorrhea, sinus pain, ear ache. CARDIOVASCULAR: No angina, palpitations, orthopnea or paroxysmal dyspnea. RESPIRATORY: No SOB. GASTROINTESTINAL: No abdominal pain, nausea, vomiting, diarrhea, hematemesis, melena or change in the patient's habitual bowel movements consistency/number. GENITOURINARY: No dysuria, hematuria or change in bladder continence. MUSCULOSKELETAL: No new muscle pain or decrease in muscular strength. No new joint swelling, redness or tenderness. SKIN: No new rash. Physical Exam: GEN: Awake, alert, oriented in person, time and place, and in no acute distress. HEENT: No sinus tenderness. Tympanic membranes were not examined. No rhinorrhea. Oral pharyngeal mucosa is pink, moist and within normal limits. Neck is supple with no cervical lymphadenopathy, thyromegaly or JVD. CHEST: Inspection, palpation and percussion of the chest were unremarkable. Lung auscultation revealed normal breath sounds bilaterally. CARDIAC: PMI is within normal limits. Heart sounds are regular. Normal S1, S2. No gallop or murmur. ABD: Soft, non-tender and not distended. No peritoneal signs on palpation. No organomegaly. Normal bowel sounds. EXT: No cyanosis or clubbing. No edema. SKIN: Intact. No rashes. JOINTS: No evidence of synovitis or acute arthritis. NEURO: Alert and oriented to name, place and person. Cranial nerve examination is unremarkable. No focal motor deficits. Normal speech. Gait is normal. Strength is normal. Laboratory: [ ] Laboratory: Test 07/10/25 11:21 07/09/25 15:55 07/09/25 03:58 Range/Units Whole Blood Glucose 200 #H 70-110 MG/DL Bedside Glucose Comment Notified Nurse White Blood Count 3.0 L 4.8-10.8 K/uL Red Blood Count 2.66 L 4.00-5.50 MIL/uL Hemoglobin 7.2 L 12.0-16.0 g/dL Hematocrit 22.5 L 36-48 % Mean Corpuscular Volume 84.6 79-99 fL Mean Corpuscular Hemoglobin 27.1 27.0-33.0 pg Mean Corpuscular Hemoglobin Concent 32.0 32.0-36.0 g/dL Red Cell Distribution Width 14.6 11.0-15.5 % Platelet Count 65 L 130-400 K/uL Mean Platelet Volume 10.3 7.5-10.5 fL Segmented Neutrophils % 71 H 40-70 % Lymphocytes % (Manual) 22 22-44 % Monocytes % (Manual) 3 2-9 % Eosinophils % (Manual) 3 1-6 % Basophils % (Manual) 1 0-2 % Nucleated Red Blood Cells 0.0 0.0-0.19 % Differential Comment MANUAL DIFFERENTIAL White Cell Morphology Comment Platelet Morphology Comment DECREASED Red Blood Cell Morphology HYPOCHROM CELLS 1+ Sodium Level 137 136-145 mmol/L Potassium Level 4.0 3.5-5.1 mmol/L Chloride Level 108 101-111 mmol/L Carbon Dioxide Level 22 21-32 mmol/L Blood Urea Nitrogen 28 H 7-18 mg/dL Creatinine 1.5 H 0.5-1.0 mg/dL Glomerular Filtration Rate Calc 38 >90 mL/min Random Glucose 136 H 70-105 mg/dL Total Calcium 7.8 L 8.5-10.1 mg/dL Current Medications Medications (Trade) Dose Ordered Sig/Shazia Route PRN Reason Start Time Stop Time Status Last Admin Dose Admin Acetaminophen (TYLenol 325MG TAB) 650 mg Q6H PRN PO TEMPERATURE GREATER THAN 101.5 07/02/25 23:00 07/10/25 16:50 DC Acetaminophen (TYLenol 325MG TAB) 650 mg Q6H PRN PO MILD PAIN (1-3) 07/03/25 14:30 07/10/25 16:50 DC 07/07/25 21:30 650 MG Amlodipine Besylate (NorvASC 2.5MG TAB) 2.5 mg HS PO 07/03/25 21:00 07/10/25 16:50 DC 07/09/25 21:29 2.5 MG Carvedilol (Coreg 3.125MG) 3.125 mg BID PO 07/07/25 13:00 07/10/25 16:50 DC 07/10/25 09:03 3.125 MG Ceftriaxone Sodium (ROCEphine 1G INJ) 1 gm Q24H IVPB 07/02/25 23:00 07/04/25 13:00 DC 07/03/25 23:04 1 GM Folic Acid (FOLic ACID 1 MG TABLET) 1 mg DAILY PO 07/03/25 09:00 07/10/25 16:50 DC 07/10/25 09:03 1 MG Furosemide (LASix 20MG TAB) 20 mg HS PO 07/03/25 21:00 07/10/25 16:50 DC 07/09/25 21:29 20 MG Hydralazine HCl (APRESOLine 20MG INJ) 10 mg Q6H PRN IV For:SBP above 160;DBP above 90 07/02/25 23:00 07/10/25 16:50 DC Hydromorphone HCl (DiLAUDid 1MG INJ) 0.25 mg Q4H PRN IVP SEVERE PAIN (7-10) 07/02/25 23:00 07/07/25 22:59 DC 07/04/25 20:18 0.25 MG Insulin Human Regular (humuLIN R 100 UNIT/ML 3ML) INSULIN SLIDING SCAL... ACHS SQ 07/03/25 07:30 07/10/25 16:50 DC 07/10/25 13:02 2 UNIT Lactulose (Constulose 20gm/ 30ml Udcup) 20 gm BID PO 07/03/25 09:00 07/10/25 16:50 DC Magnesium Sulfate 50 ml @ 0 mls/hr PROTOCOL PRN IV MAGNESIUM PROTOCOL 07/03/25 05:00 07/10/25 16:50 DC 07/03/25 05:13 25 MLS/HR Miscellaneous Medication (Lactulose ) 30 ml AD PRN PO OTHER [SEE ORDER COMMENTS] 07/03/25 18:00 07/03/25 18:09 DC Ondansetron HCl (zoFRAN 4MG TABLET) 4 mg TID PRN PO NAUSEA 07/03/25 18:00 07/10/25 16:50 DC Ondansetron HCl (zoFRAN 4MG INJ) 4 mg Q6H PRN IV NAUSEA/VOMITING IF NPO 07/02/25 23:00 07/09/25 07:30 DC 07/03/25 11:01 4 MG Pantoprazole Sodium (PROTonix 40MG INJ) 40 mg BID IVP 07/03/25 21:00 07/10/25 16:50 DC 07/10/25 09:03 40 MG Pantoprazole Sodium (PROTonix 40MG TAB) 40 mg DAILY PO 07/03/25 09:00 07/03/25 17:47 DC Piperacillin Sod/ Tazobactam Sod (Zosyn 3.375gm+NS 50ml) 3.375 gm Q8H IV 07/04/25 13:00 07/10/25 16:50 DC 07/10/25 12:50 3.375 GM Rifaximin (Xifaxan) 550 mg BID PO 07/03/25 09:00 07/10/25 16:50 DC 07/08/25 08:56 550 MG Sodium Chloride 1,000 ml @ 100 mls/hr Q10H STAT IV 07/02/25 19:52 07/03/25 05:51 DC 07/02/25 20:39 100 MLS/HR Spironolactone (Aldactone 25mg) 25 mg DAILY PO 07/03/25 09:00 07/10/25 16:50 DC 07/10/25 09:03 25 MG Thiamine HCl (Vitamin B-1) 100 mg DAILY PO 07/03/25 09:00 07/10/25 16:50 DC 07/10/25 09:03 100 MG Diagnostics / Radiology: [COPY/PASTE HERE IF NO REPORTS PLEASE DELETE SECTION] Assessment: GI bleed Acute blood loss anemia Cirrhosis DM Plan: Continue GI prophylaxis Advance diet as tolerated Avoid NSAIDs Antireflux measures Monitor H&H and transfuse as needed Call with questions, concerns or change in clinical status Patient to follow-up at clinic post discharge Thank you for this consult MISTI BURNS Jul 10, 2025 21:09
--- NOTE | 2025-07-10 21:13 | PN ---
INFECTIOUS DISEASE PROGRESS NOTE Date of Service: Jul 10, 2025 SUBJECTIVE: This is a 65-year-old female patient was seen and examined at bedside in room 404. The CT of the abdomen and pelvis interpretation showed edema and cellulitis to the left abdominal wall. On examination there is some minimal edema but no cellulitis. Patient reported still having some mild tenderness on palpation. No fever, temperature is 98.2 and patient denying nausea and vomiting. Patient will be discharged to home today and is to follow up with [facility] tomorrow for outpatient IV antibiotics. PHYSICAL EXAM EYES: Anicteric. Pupils equal and reactive. HENT: No oral thrush seen, moist Oral mucosa. NECK: Supple, no JVD or thyromegaly. LUNGS: Good air entry. No rales, no rhonchi. CARDIOVASCULAR: S1, S2 regular. No murmur heard. ABDOMEN: Soft, bowel sounds present. Tenderness on palpation. CENTRAL NERVOUS SYSTEM: Awake, alert, oriented x 3. SKIN: No rashes, no swelling. LYMPHATICS: No peripheral lymphadenopathy. MUSCULOSKELETAL: No joint swelling, erythema or tenderness. EXTREMITIES: No cyanosis or clubbing. BACK: No deformity, no pressure ulcer. GENITOURINARY: No dysuria or hematuria. Vital Sign (Last 12 Hours) 07/10/25 12:00 Temp 97.9 Pulse 61 Resp 19 B/P (MAP) 112/39 Pulse Ox 96 O2 Delivery Room Air Intake & Output (last 24hrs) 07/09/25 07/09/25 07/10/25 15:00 23:00 07:00 Intake Total 600 ml 350.0 ml 50.0 ml Balance 600 ml 350.0 ml 50.0 ml LABS: Laboratory: Test 07/10/25 11:21 07/09/25 15:55 07/09/25 03:58 Range/Units Whole Blood Glucose 200 #H 70-110 MG/DL Bedside Glucose Comment Notified Nurse White Blood Count 3.0 L 4.8-10.8 K/uL Red Blood Count 2.66 L 4.00-5.50 MIL/uL Hemoglobin 7.2 L 12.0-16.0 g/dL Hematocrit 22.5 L 36-48 % Mean Corpuscular Volume 84.6 79-99 fL Mean Corpuscular Hemoglobin 27.1 27.0-33.0 pg Mean Corpuscular Hemoglobin Concent 32.0 32.0-36.0 g/dL Red Cell Distribution Width 14.6 11.0-15.5 % Platelet Count 65 L 130-400 K/uL Mean Platelet Volume 10.3 7.5-10.5 fL Segmented Neutrophils % 71 H 40-70 % Lymphocytes % (Manual) 22 22-44 % Monocytes % (Manual) 3 2-9 % Eosinophils % (Manual) 3 1-6 % Basophils % (Manual) 1 0-2 % Nucleated Red Blood Cells 0.0 0.0-0.19 % Differential Comment MANUAL DIFFERENTIAL White Cell Morphology Comment Platelet Morphology Comment DECREASED Red Blood Cell Morphology HYPOCHROM CELLS 1+ Sodium Level 137 136-145 mmol/L Potassium Level 4.0 3.5-5.1 mmol/L Chloride Level 108 101-111 mmol/L Carbon Dioxide Level 22 21-32 mmol/L Blood Urea Nitrogen 28 H 7-18 mg/dL Creatinine 1.5 H 0.5-1.0 mg/dL Glomerular Filtration Rate Calc 38 >90 mL/min Random Glucose 136 H 70-105 mg/dL Total Calcium 7.8 L 8.5-10.1 mg/dL ASSESSMENT: Urinary tract infection with ESBL E coli. Anemia requiring blood transfusion, s/p EGD with findings of esophageal varices with no bleeding. Thrombocytopenia. Acute renal failure. Liver cirrhosis. Diabetes mellitus. History of left nephrectomy. Abdominal pain. PLAN: Continue Zosyn. Patient will be discharged to home today and is to follow up with [facility] tomorrow for outpatient IV antibiotics with Zosyn for 10 days. This case was reviewed and discussed with my supervising physician Dr. Kennedy and the above assessment and plan was formulated and agreed upon. ATTESTATION BY PHYSICIAN I have seen and examined the patient. I reviewed the documentation, medical decision making, and treatment plan as noted by the mid-level provider above. I agree with the findings and plan of care. FRED KENNEDY MD, MIRTA L [facility] Jul 10, 2025 21:13
== END 2025-07-10 16:50 | disposition home or self-care (01) | DRG 433 ==
LOC: EDH 18:57 → EDHIP 21:20 → 4AH 07-03
PROVIDERS: ADMIT Internal Medicine; ATTEND Internal Medicine
PROC: 0W9G3ZZ Drainage of Peritoneal Cavity, Percutaneous Approach (ICD-10-PCS; principal; 2025-07-03)
PROC: 30233N1 Transfusion of Nonautologous Red Blood Cells into Peripheral Vein, Percutaneous Approach (ICD-10-PCS; 2025-07-03)
PROC: 0DJ08ZZ Inspection of Upper Intestinal Tract, Via Natural or Artificial Opening Endoscopic (ICD-10-PCS; 2025-07-06)
DX: K74.60 Unspecified cirrhosis of liver (principal); D61.818 Other pancytopenia; M62.82 Rhabdomyolysis; N17.9 Acute kidney failure, unspecified; K92.2 Gastrointestinal hemorrhage, unspecified; D62 Acute posthemorrhagic anemia; N39.0 Urinary tract infection, site not specified; B96.20 Unspecified Escherichia coli [E. coli] as the cause of diseases classified elsewhere; K76.6 Portal hypertension; E11.22 Type 2 diabetes mellitus with diabetic chronic kidney disease; I12.9 Hypertensive chronic kidney disease with stage 1 through stage 4 chronic kidney disease, or unspecified chronic kidney disease; N18.32 Chronic kidney disease, stage 3b; J44.9 Chronic obstructive pulmonary disease, unspecified; E66.9 Obesity, unspecified; R18.8 Other ascites; Z16.12 Extended spectrum beta lactamase (ESBL) resistance; I85.00 Esophageal varices without bleeding; E86.0 Dehydration; K31.89 Other diseases of stomach and duodenum; Z79.899 Other long term (current) drug therapy; Z82.49 Family history of ischemic heart disease and other diseases of the circulatory system; Z82.5 Family history of asthma and other chronic lower respiratory diseases; Z83.3 Family history of diabetes mellitus; Z82.3 Family history of stroke; Z79.4 Long term (current) use of insulin; Z90.5 Acquired absence of kidney; Z90.711 Acquired absence of uterus with remaining cervical stump; Z68.33 Body mass index [BMI] 33.0-33.9, adult
CPT/HCPCS: 36415; 36430; 36556; 43235; 49083; 71045; 74176; 80048; 80053; 80076; 81001; 82140; 82270; 82948; 83036; 83735; 83880; 84100; 85014; 85018; 85025; 85027; 85610; 85730; 86850; 86900; 86901; 86923; 87086; 87186; 87635; 87804; 93005; 96374; 96375; 99285; A4606; C1729; C1894; G0378; J0696; J1171; J1815; J2003; J2250; J2270; J2405; J2470; J2543; J2704; J3010; J3475; P9016; A4215; A4222; A4223; A4510; A4620; C1750; J1308; J3490

== ENCOUNTER → 2025-07-25 | Outpatient (CLI) | payer OTHER, MEDICARE ==
[~2025-07-25] MED LIST changes: +AMLO2.5T4 PO; +CARV3.1262 PO; +LACT-441 PO; -LACT10SO85 PO; +ONDA-104 PO; +RIFA550T PO; +SPIR50TA5 PO; +Zosyn 3.375GM+Ns 50ML IV
--- NOTE | 2025-07-25 10:50 | NUR ---
U/S GD PARACENTESIS PROCEDURE PERFORMED BY DR NOLAN. PUNCTURE SITE LLQ AND PATIENT TOLERATED PROCEDURE WELL. TOTAL REMOVED 3.6 LITERS OF YELLOW CLOUDY. SPECIMEN SENT TO LAB. END OF PROCEDURE AT 1030. CATHETER REMOVED AND DRESSING APPLIED. NO BLEEDING NOTED. DISCHARGE INSTRUCTIONS GIVEN TO PATIENT AND VERBALIZED UNDERSTANDING. DISCHARGED VIA AMBULATORY. AAO X3 WITH NO C/O PAIN.
[2025-07-25 14:12] LABS: ALBUMIN,BODY FLUID < 0.6 g/dL; TOTAL PROTEIN,BODY FLUID < 2.0 g/dL
[2025-07-25 15:16] LABS: BODY FLUID RBC 635 /cu. mm.; BODY FLUID WBC 198 /cu. mm.
[2025-07-25 15:39] LABS: BF LYMPHOCYTE 89 %; BF MESOTHELIAL 4 %; BF NEUTROPHIL 7.0 %; BF TOTAL CELLS COUNTED 100
[2025-07-25 15:41] LABS: APPEARANCE BODY FLUID CLOUDY (CLEAR); COLOR,BODY FLUID YELLOW (LT YELLOW); SPECIMENTYPE,BODY FLUID ASCITES; TOTAL VOLUME,BODY FLUID 3600 mL
--- NOTE | 2025-07-30 10:08 | HMCIMG ---
US ABDOMINAL PARACENTESIS IR REASON: ASCITES TECHNIQUE: Paracentesis was performed with ultrasound guidance. The puncture site was selected in the Right lower quadrant and overlying skin prepped and draped in a sterile fashion. 1% Xylocaine infiltration was performed. Catheter was placed in the fluid using trocar technique. 3.6 L were removed. Fluid sample was submitted for laboratory evaluation. The patient showed no evidence of complication during the procedure. Patient tolerated procedure well. IMPRESSION: 1. Ultrasound-guided paracentesis.
== END ==
LOC: RAH 09:45
PROVIDERS: ATTEND Internal Medicine Gastroenterology
DX: R18.8 Other ascites (principal); K74.60 Unspecified cirrhosis of liver; I85.00 Esophageal varices without bleeding; E11.9 Type 2 diabetes mellitus without complications; D50.0 Iron deficiency anemia secondary to blood loss (chronic); K29.70 Gastritis, unspecified, without bleeding; Z86.2 Personal history of diseases of the blood and blood-forming organs and certain disorders involving the immune mechanism; Z86.16 Personal history of COVID-19; Z90.49 Acquired absence of other specified parts of digestive tract; Z98.891 History of uterine scar from previous surgery; Z98.890 Other specified postprocedural states
CPT/HCPCS: 49083; 84157; 89051; 87071; 87205; 82042; 88108; 88305; C1729